=== PATIENT | female | born 1960 | race Caucasian/White ===

== ENCOUNTER 2024-01-18 09:27 | Outpatient (REF) | payer OTHER, SELFPAY ==
[2024-01-18 11:53] LABS: Alanine Aminotransferase 40 U/L (0-31); Albumin Level 4.1 g/dL (3.5-5.0); Alkaline Phosphatase 100 U/L (39-117); Anion Gap 11 (12-20); Aspartate Amino Transferase 31 U/L (5-31); Bilirubin Total 0.3 mg/dL (0.0-1.0); Blood Urea Nitrogen 15 mg/dL (9-16); Calcium 9.6 mg/dL (8.4-10.2); Carbon Dioxide 25 mmol/L (22-29); Chloride 108 mmol/L (96-108); Estimated Glomerular Filt Rate > 60; Glucose Random 108 mg/dL (60-115); Potassium 4.3 mmol/L (3.3-5.1); Sodium 140 mmol/L (135-145); Total Protein 7.2 g/dL (6.5-8.0)
== END 2024-01-18 09:28 | disposition home or self-care (01) ==
LOC: HO.HMGCLDS 09:27
PROVIDERS: PCP Internal Medicine; Visit Provider Internal Medicine
DX: R53.83 Other fatigue (principal); R82.2 Biliuria
CPT/HCPCS: 36415; 80053

== ENCOUNTER 2024-04-18 08:39 | Outpatient (REF) | payer OTHER, SELFPAY ==
--- NOTE | ~2024-04-18 | US_ITS ---
EXAMINATION: US ABDOMEN LIMITED CLINICAL INFORMATION: Bilirubin in urine. Rule out mass. COMPARISON: None available. TECHNIQUE: Real-time imaging of the right upper quadrant abdominal viscera. Limited visualization due to bowel gas. FINDINGS: PANCREAS: Limited visualization of pancreatic tail and head. Imaged portion of pancreatic body is unremarkable. LIVER: Mildly increased hepatic parenchymal heterogeneity and echogenicity could be associated with hepatocellular disease/hepatic steatosis and substantially limits visualization. Correlation with liver function tests and clinical exam recommended to determine further management. GALLBLADDER: Small amount of mobile echogenic material within the gallbladder, best visualized when patient moved into decubitus position per label printer observations, possibly representing echogenic bile and/or tiny gallstones. No gallbladder wall thickening. COMMON BILE DUCT: Normal in caliber measuring 0.40 cm in diameter. RIGHT KIDNEY: No hydronephrosis. No renal calculi. Limited visualization. The kidney measures 10.5 cm in maximum dimension. FREE FLUID: None. US/US abdomen limited IMPRESSION: 1. Mildly increased hepatic parenchymal heterogeneity and echogenicity could be associated with hepatocellular disease/hepatic steatosis and substantially limits visualization. Correlation with liver function tests and clinical exam recommended to determine further management. 2. Small amount of mobile echogenic material within the gallbladder, best visualized when patient moved into decubitus position per label printer observations, possibly representing echogenic bile and/or tiny gallstones. No gallbladder wall thickening.
== END 2024-04-18 08:40 | disposition home or self-care (01) ==
LOC: HO.HMGCX 08:39
PROVIDERS: PCP Internal Medicine; Visit Provider Internal Medicine
DX: R82.2 Biliuria (principal)
CPT/HCPCS: 76705

== ENCOUNTER 2024-06-02 15:18 | Outpatient (REF) | payer OTHER, SELFPAY ==
[2024-06-02 16:16] LABS: Alanine Aminotransferase 16 U/L (0-31); Alkaline Phosphatase 92 U/L (39-117); Anion Gap 13 (12-20); Aspartate Amino Transferase 16 U/L (5-31); Bilirubin Direct 0.1 mg/dL (0.0-0.5); Bilirubin Total 0.3 mg/dL (0.0-1.0); Blood Urea Nitrogen 13 mg/dL (9-16); Calcium 10.1 mg/dL (8.4-10.2); Carbon Dioxide 25 mmol/L (22-29); Chloride 106 mmol/L (96-108); Estimated Glomerular Filt Rate > 60; Phosphorus 3.9 mg/dL (2.7-4.5); Potassium 4.2 mmol/L (3.3-5.1); Sodium 140 mmol/L (135-145)
[2024-06-02 17:02] LABS: Appearance Urine Clear; Color Urine Yellow; Glucose Urine UA Negative (Negative); Leukocyte Esterase Urine Small (1+) (Negative); Nitrite Urine Positive (Negative); PH 5.5 (5.0-9.0); UMIC TRIGGER UA YES; Urine Blood Negative (Negative); Urine Ketones Negative (Negative); Urine Protein 30 (1+) mg/dL (Neg-Trace)
[2024-06-02 17:05] LABS: Bacteria Urine 4+ (None Seen); Hyaline Casts Urine 0-2 /LPF (0-2); RBC Urine 0-2 /HPF (0-2); WBC Urine 21-50 /HPF (0-5)
[2024-06-02 17:30] LABS: Creatinine Urine 52.57 mg/dL; Microalbum/Creatinine Ratio Ur 15.2 ug/mg cr (<30); Total Protein Urine Random < 7 mg/dL (<12)
== END 2024-06-02 15:19 | disposition home or self-care (01) ==
LOC: HO.LAB 15:18
PROVIDERS: PCP Internal Medicine; Visit Provider Internal Medicine Nephrology
DX: N30.81 Other cystitis with hematuria (principal)
CPT/HCPCS: 36415; 80051; 81001; 82043; 82247; 82248; 82310; 82565; 82570; 84075; 84100; 84156; 84450; 84460; 84520; 87086; 87088; 87186

== ENCOUNTER 2025-04-08 11:24 | Outpatient (AMB) | payer OTHER, SELFPAY ==
--- NOTE | 2025-04-08 11:20 | MHC.PC.OV ---
Vital Signs 04/08/25 11:25 Height 5 ft 1.81 in Weight 140 lb BMI 25.8 BP 152/79 H Blood Pressure Location Rt brachial Position Sitting Respiration 16 Pulse 72 Pulse Source Pulse Oximeter Temp 98.2 F Temp Source Temporal Artery Scan Pulse Oximetry (%) 98 Oxygen Delivery Method Room Air Intake Visit Reasons: Establish Care [employer] Required: No Accompanied by: Spouse Allergies No Known Allergies Allergy (Verified 04/08/25 11:42) Medication List - Last Reconciled 04/08/25 by Nikia Adames PA-C amoxicillin 500 mg PO DAILY atorvastatin 40 mg PO DAILY cevimeline 1 cap PO BID PRN cyclobenzaprine 5 mg PO BEDTIME PRN estradiol 1 patch topical 2XW estradiol 0.01%(0.1mg/gram) 0.5 grams vaginal Q OTHER DAY etodolac 400 mg PO DAILY PRN fluoxetine 10 mg PO DAILY fluoxetine mg PO levothyroxine (Synthroid) 100 mcg PO DAILY lorazepam 1 mg PO TID methenamine hippurate 1 g PO BID nitrofurantoin monohyd/m-cryst 100 mg 1 cap PO BID omeprazole 20 mg PO BID Tobacco use date assessed: 04/08/25 Fall risk assessment: No Falls in past year Last assessed Fall Risk: 04/08/25 Dental Screening Dental Screen Date: 04/08/25 Did you have a dental visit in the last 12 months?: Yes Did you have a dental problem in the last 6 months where you did not have access to dental care?: No Was dental information given to patient?: Patient has dentist HPI Establish Care HPI Details The patient is a 65-year-old female presenting with the need to establish care with a new primary care provider and review her medical history. She is currently on atorvastatin for hyperlipidemia, which is a long-standing condition. She also takes omeprazole for gastroesophageal reflux disease, levothyroxine for hypothyroidism, and fluoxetine for depression. The patient reports a history of urinary tract infections for which she has been prescribed nitrofurantoin. She is also on lorazepam for anxiety, which is being considered for dose reduction due to concerns about long-term use. Her blood pressure was noted to be elevated at 152/79 mmHg during the visit, although she reports it is not usually high at home. She is advised to monitor her blood pressure at home and return for follow-up in a month. Social History - Substance Use: No current use of methamphetamine reported. [facility] Medical History (Updated 04/08/25 @ 12:11 by Nikia Adames PA-C) Elevated blood pressure reading Hypothyroidism GERD (gastroesophageal reflux disease) Recurrent UTI Hyperlipidemia Anxiety and depression OCD (obsessive compulsive disorder) Establishing care with new doctor, encounter for Family History Father Diabetes Cancer Multiple myeloma Mother BP (high blood pressure) Ovarian cancer Social History Housing: House Alcohol intake: current Alcohol intake frequency: does not drink Patient Tobacco Use Status: Current everyday Tobacco user Cigarette Packs Per Day: 1 Cigarettes Per Day: 20 service: No Current occupational status: unemployed Cognitive needs: No Hearing needs: No Vision needs: Yes (rx glasses) Questionnaire PHQ-9 Over the last 2 weeks, how often have you been bothered by any of the following problems? 1. Little interest or pleasure in doing things: not at all 2. Feeling down, depressed, or hopeless: not at all 3. Trouble falling or staying asleep, or sleeping too much: not at all 4. Feeling tired or having little energy: not at all 5. Poor appetite or overeating: not at all 6. Feeling bad about yourself - or that you are a failure or have let yourself or your family down: not at all 7. Trouble concentrating on things, such as reading the newspaper or watching television: not at all 8. Moving or speaking so slowly that other people could have noticed. Or the opposite - being so fidgety or restless that you have been moving around a lot more than usual: not at all 9. Thoughts that you would be better off or of hurting yourself in some way: not at all Total score: 0 Depression Screening Interpretation: Negative Depression Screening Done: Yes 68071 - PHQ-9 Billing: Yes Source: Developed by Drs. Nnamdi Ernst, Miri Harris, Robert Sellers and colleagues, with an educational franchesca from [employer]. Thrive Questionnaire Date Thrive assessed: 04/08/25 I am a: Patient What is your living situation today?: I have a steady place to live Within the past 12 months, did the food you bought not last and you didn't have the money to get more?: Never true Within the past 12 months, did you worry whether your food would run out before you got money to buy more?: Never true Do you have trouble paying for medicines?: No Do you have trouble getting transportation to medical appointments?: No Do you have trouble paying your heating and electricity bill?: No Do you have trouble taking care of your child, family member or friend?: No Do you have trouble with day-to-day activities such as bathing, preparing meals, shopping, managing finances, etc.?: No Are you currently unemployed and looking for a job?: No Are you interested in more education?: No Please select the resources that you would like help with: None THRIVE Score: 0 AUDIT C Alcohol Use Questionnaire (AUDIT-C) 1. How often do you have a drink containing alcohol?: Never 3. How often do you have six or more drinks on one occasion?: Never Total Score: 0 Score Reviewed/Action Taken: No NONA-7 AMB Questionnaire NONA-7 Date NONA - 7 assessed: 04/08/25 Feeling nervous, anxious, or on edge: 0 = Not at all Not being able to stop or control worryin = Not at all Worrying too much about different things: 0 = Not at all Trouble relaxin = Not at all Being so restless that it is hard to sit still: 0 = Not at all Becoming easily annoyed or irritable: 0 = Not at all Feeling afraid as if something awful might happen: 0 = Not at all Total NONA-7 score (0-4 normal; 5-9 mild; 10-14 moderate; 15-21 severe): 0 Source: Developed by Drs. Nnamdi Ernst, Miri Harrsi, Robert Sellers and colleagues, with an educational franchesca from [employer]. NONA-7 Assessment Billing NONA-7 Assessment Tool: NNOA-7 Assessment 12575 Review of Systems Const Details: - Cardiovascular: Denies usual hypertension at home. - Psychiatric: Reports anxiety and depression. Physical exam (Primary Care) Vital Signs: Last Vital Signs Temp 98.2 F 04/08/25 11:25 Pulse 72 04/08/25 11:25 Resp 16 07/02/25 11:25 BP 166/80 H 07/02/25 11:25 Pulse Ox 98 04/08/25 11:25 Oxygen Delivery Method Room Air 04/08/25 11:25 Care Plan Goal for BP management: <140/90 patient to keep a blood pressure diary log over the next month and return in 1 month BMI result Body Mass Index 25.8 BMI Assessment/Plan discussion: High BMI High, discussed plan: lifestyle, weight reduction, dietary, physical activity and alcohol moderation Tobacco/Smoking Status: Tobacco use Status Tobacco use date assessed 04/08/25 04/08/25 11:23 Patient Tobacco Use Status Current everyday Tobacco 04/08/25 11:37 PHQ-9: PHQ-9 Score PHQ-9: Total score 0 04/08/25 11:37 Depression Screening Interpretation: Negative Thrive Assessment: Date of Thrive Assessment Date Thrive assessed 04/08/25 04/08/25 11:23 Const Other: Appearance: Alert. Oriented X3. No acute distress. Head: Normal external exam. Normocephalic. Atraumatic. Eyes: Pupils are equal, round, and reactive to light. Extraocular movements intact. Conjunctiva and sclera normal. Eyelids normal. Throat: Pharynx normal. Uvula midline. Moist mucous membranes. Neck: Normal inspection. Neck supple. Full range of motion. Cardiovascular: Normal heart rate and rhythm. Heart sound normal. No murmurs noted. Pulses normal throughout. Blood pressure recorded at 152/79, slightly elevated. Respiratory: No respiratory distress. Painless inspiration. Breath sounds normal. No wheezes/rales/rhonchi noted. Chest nontender. No accessory muscle usage noted or decreased air movement noted. Back: Full range of motion noted. Skin: Skin warm and dry. Normal skin color. Normal skin turgor. No rashes/lesions/lacerations noted. Extremities: No lower extremity edema. Extremities exhibit normal range of motion. Extremities nontender. Neuro: Oriented X 3. No motor deficit. No sensory deficit. Reflexes normal. Results Reviewed Results Reviewed: - Labs: Chemistry panel from May 2024 reported as normal, including kidney function. Coding Level of Care Code New Pt Level 4 (68868) Complex EM visit Add On G2211 Diagnoses Establishing care with new doctor, encounter for Z76.89 Hyperlipidemia E78.5 Recurrent UTI N39.0 GERD (gastroesophageal reflux disease) K21.9 Hypothyroidism E03.9 Anxiety and depression F41.9; F32.A OCD (obsessive compulsive disorder) F42.9 Elevated blood pressure reading R03.0 Additional Codes PHQ-9 - 60047 - PHQ-9 Billing: Yes ([id number]) NONA-7 Assessment Billing - NONA-7 Assessment Tool: NONA-7 Assessment 24669 ([id number]) Assessment & Plan Assessment & Plan (1) Establishing care with new doctor, encounter for: Code(s): Z76.89 - Persons encountering health services in other specified circumstances Category: Medical (2) Hyperlipidemia: Code(s): E78.5 - Hyperlipidemia, unspecified Category: Medical Plan: The patient is currently on atorvastatin for management of hyperlipidemia. Condition is chronic and stable continue to monitor. (3) Recurrent UTI: Code(s): N39.0 - Urinary tract infection, site not specified Category: Medical Plan: The patient has a history of urinary tract infections and is on nitrofurantoin, amoxicillin and methenamine hippurate for management. Condition is chronic and stable will continue to monitor. (4) GERD (gastroesophageal reflux disease): Code(s): K21.9 - Gastro-esophageal reflux disease without esophagitis Category: Medical Plan: The patient is on omeprazole for management of gastroesophageal reflux disease. Condition is chronic and stable continue current regimen. (5) Hypothyroidism: Code(s): E03.9 - Hypothyroidism, unspecified Category: Medical Plan: The patient is on levothyroxine 100 mcg for management of hypothyroidism. Condition is chronic and stable will continue current regimen. (6) Anxiety and depression: Code(s): F41.9 - Anxiety disorder, unspecified; F32.A - Depression, unspecified Category: Medical Plan: The patient is on lorazepam for anxiety, she was being prescribed 1 mg t.i.d. although has not been on it for the past few days. I explained to her that we should decrease this dose to 2 tablets twice a day of the 1 mg tablets. At her next visit we will decrease to 1 mg Ativan tablet daily then tried to decrease to 0.5 mg daily. We will continue to try to wean the patient off if appropriate although will refer to Ira Barton for further evaluation and recommendation. Condition is chronic and stable continue to monitor. (7) OCD (obsessive compulsive disorder): Code(s): F42.9 - Obsessive-compulsive disorder, unspecified Category: Medical Plan: The patient is on lorazepam for anxiety, she was being prescribed 1 mg t.i.d. although has not been on it for the past few days. I explained to her that we should decrease this dose to 2 tablets twice a day of the 1 mg tablets. At her next visit we will decrease to 1 mg Ativan tablet daily then tried to decrease to 0.5 mg daily. We will continue to try to wean the patient off if appropriate although will refer to Ira Barton for further evaluation and recommendation. Condition is chronic and stable continue to monitor. (8) Elevated blood pressure reading: Code(s): R03.0 - Elevated blood-pressure reading, without diagnosis of hypertension Category: Medical Plan: Patient denies history of prior elevated blood pressure. Blood pressure noted to be elevated today. Patient to monitor blood pressure log at home and return in 1 month with blood pressure log we will establish if at that time patient needs to be started on blood pressure medication. Patient understands agrees with this plan. Plan Plan Patient was informed and verbally consented to the use of an ambient scribe for clinic note documentation during this visit. 1. Hyperlipidemia The patient is currently on atorvastatin for management of hyperlipidemia. 2. Urinary Tract Infection The patient has a history of urinary tract infections and is on nitrofurantoin for management. 3. Gastroesophageal Reflux Disease The patient is on omeprazole for management of gastroesophageal reflux disease. 4. Hypothyroidism The patient is on levothyroxine 100 mcg for management of hypothyroidism. 5. Anxiety The patient is on lorazepam for anxiety, she was being prescribed 1 mg t.i.d. although has not been on it for the past few days. I explained to her that we should decrease this dose to 2 tablets twice a day of the 1 mg tablets. At her next visit we will decrease to 1 mg Ativan tablet daily then tried to decrease to 0.5 mg daily. We will continue to try to wean the patient off if appropriate although will refer to Ira Barton for further evaluation and recommendation. Condition is chronic and stable continue to monitor. 6. Depression The patient is on fluoxetine 10 mg for management of depression. 7. Hypertension The patient's blood pressure was elevated at 152/79 mmHg during the visit, and she is advised to monitor it at home. Orders: Referrals Psychiatry Outpatient Consultation Service F32.A - Depression, unspecified, F41.9 - Anxiety disorder, unspecified, F42.9 - Obsessive-compulsive disorder, unspecified Medications: New lorazepam 1 mg PO BID 60 tabs 0RF anxiety 30 days Patient Instructions: - Monitor blood pressure at home daily and record the readings. - Follow up in one month for blood pressure and medication review. - Expect a referral call from Ira Barton for psychiatric evaluation.
[2025-04-08 11:25] VITALS: BP 152/79; PULSE 72; RESP 16; TEMP 36.8; O2SAT 98; BMI 25.8
--- OUTSIDE RECORDS SUMMARY | 2025-04-08 12:11 | XMS_ITS | Clinical Summary ---
Author Organization [facility] Address [address] [place] [address] Phone Care Team Providers Care Chief Physical Therapist Name Role Phone Malena Adams MD Primary Care Provider [phone] Allergies No known active allergies Medications FLUoxetine (PROzac) 10 MG capsule Take by mouth 1 (one) time each day Active FLUoxetine (PROzac) 20 MG capsule TAKE 1 CAPSULE BY MOUTH EVERY DAY WITH 10MG TO EQUAL 30MG DAILY Active omeprazole (PriLOSEC) [address] capsule Take 20 mg by mouth in the morning and 20 mg in the evening. 05/24/2024 Active cyclobenzaprine (FLEXERIL) 5 MG tablet Take 5 mg by mouth at night if needed 05/26/2024 Active LORazepam (ATIVAN) 1 MG tablet Take 1 mg by mouth Active atorvastatin (LIPITOR) 40 MG tablet Take 40 mg by mouth 1 (one) time each day Active Synthroid 100 MCG tablet Take 100 mcg by mouth 1 (one) time each day Active cevimeline (EVOXAC) 30 MG capsule Take 30 mg by mouth Active etodolac (LODINE) 400 MG tablet Take 400 mg by mouth in the morning and 400 mg in the evening. 02/04/2024 Active Active Problems Problem Noted Date Diagnosed Date Urinary tract infection 06/02/2024 Vitamin D deficiency 08/26/2021 Overview (06/02/2024): Last Assessment & Plan: Serum level requested to make sure that she does not require additional supplementation to keep it in optimal range: 40-45 ng/ml. Osteopenia 08/19/2019 Overview (06/02/2024): Last Assessment & Plan: According to most recent BMD from October 2019 at [facility] there is osteopenia not significantly changed comparing to prior study from 2017. Continue fall and fracture prevention strategies. Proper calcium and vitamin D supplementation and daily weightbearing exercises. Hypertension 09/05/2018 Overview (06/02/2024): Last Assessment & Plan: Blood pressure in the left arm both sitting and supine was 152/84 and 148/84 respectively. She will continue to monitor her blood pressures at home. We talked about sodium restriction. We spoke about the effect of diclofenac on her blood pressure. She will follow-up with her primary care physician to have a discussion regarding her elevated blood pressure. Immunizations Immunization Administration Dates Next Due Influenza, Quadrivalent, Preservative Free 06/23 Family History Medical History Relation Comments Cancer Father Hypertension Father Cancer Mother Diabetes Mother Relation Status Comments Father Mother Social History Tobacco Use Types Packs/Day Years Used Date Smoking Tobacco: Never Assessed Alcohol Use Standard Drinks/Week Comments Never 0 (1 standard drink = 0.6 oz pur e alcohol) Comments Unknown Sex and Gender Information Value Date Recorded Sex Assigned at Not on file Legal Sex Female 9:52 AM EDT Gender Identity Not on file Sexual Orientation Not on file Last Filed Vital Signs Vital Sign Reading Time Taken Comments Blood Pressure 124/60 06/02/2024 2:43 PM EDT Pulse 77 06/02/2024 2:43 PM EDT Temperature - - Respiratory Rate - - Oxygen Saturation 97% 06/02/2024 2:43 PM EDT Inhaled Oxygen Concentration - - Weight 59.6 kg (131 lb 6.4 oz) 06/02/2024 2:43 P M EDT Height - - Body Mass Index - - Plan of Treatment Health Maintenance Due Date Last Done Comments Breast Cancer Screening 1960 Pneumococcal Vaccine: 50+ Ye ars (1 of 2 - PCV) 1977 Colorectal Cancer Screening: Annual FOBT 2007 Colorectal Cancer Screening: Colonoscopy 2007 Colorectal Cancer Screening: Sigmoidoscopy 2007 Influenza Vaccine (#1) 2025 06/23/2022 Hepatitis B Vaccine Aged Out No longe r eligible based on patient's age to complete this topic Insurance Aetna Commercial A[employer]na Commercial Care Teams Chief Physical Therapist Relationship Specialty Start Date End Date Malena Adams MD [address] [place] [address] PCP - General Internal Medicine 04/23/24
--- OUTSIDE RECORDS SUMMARY | 2025-04-08 12:11 | XMS_ITS | Patient Health Record ---
Author Organization [facility] Address [address] [place] [id number] Care Team Providers Care Streetcar Conductor Name Role Phone Altman Nnamdi Unavailable [phone] Reason For Referral No Information Plan Of Treatment No Information
--- OUTSIDE RECORDS SUMMARY | 2025-04-08 12:11 | XMS_ITS | Encounter Summary ---
Author Organization [facility] Address [address] [place] [address] Care Team Providers Care Claim Investigator Name Role Phone Physician, Pcp Unknown Primary Care Provider Mary vailable Encounter Details Date Type Department Care Team (Late st Contact Info) Description 10/23/2024 Lab Requisition [facility] - Main Lab [address] [place] [address] London Perez MD [address] [place] [phone] Pyuria Social History Tobacco Use Types Packs/Day Years Used Date Smoking Tobacco: Never Assessed Comments Unknown Sex and Gender Information Value Date Recorded Sex Assigned at Not on file Legal Sex Female 10:17 AM EST Gender Identity Not on file Sexual Orientation Not on file documented as of this encounter Plan of Treatment Not on file documented as of this encounter Procedures Procedure Name Priority Date/Time Associated Diagnosis Comments BACTERIAL IDENTIFICATION AND SUSCEPTIBILITY, AEROBIC Routine 10/22/2024 11:48 AM EST Pyuria documented in this encounter Results * (ABNORMAL) Bacterial identification and susceptibility, aerobic (10/22/2024 11:48 AM EST) Culture, Bacterial ID and Sensitivity Enterococcus faecalis(A) MIRNA 10/24/2024 10:17 AM EST [facility] Comment: SPARSE Edited result: Previously reported as Enterococcus species on 10/23/2024 at 1505 EST. Other Urine specimen from urethra / Unknown 10/22/2024 11:48 AM EST 10/23/2024 2:31 PM EST Narrative Organism Antibiotic Method Susceptibility Enterococcus faecalis Benzylpenicillin MIRNA 4 ug/ml: Susceptible Enterococcus faecalis Ampicillin MIRNA <=2 ug/ml: Susceptible Enterococcus faecalis Ciprofloxacin MIRNA 1 ug/ml: Susceptible Enterococcus faecalis Levofloxacin MIRNA 1 ug/ml: Susceptible Enterococcus faecalis Linezolid MIRNA 2 ug/ml: Susceptible Enterococcus faecalis Vancomycin MIRNA 2 ug/ml: Susceptible Enterococcus faecalis Tetracycline MIRNA >=16 ug/ml: Resistant Enterococcus faecalis Nitrofurantoin MIRNA <=16 ug/ml: Susceptible us London Perez MD LAB MICROBIOLOGY - GENERAL ORDER MIGUEL Final Result [facility] [address] [place] [address], [place] [phone] documented in this encounter Visit Diagnoses Diagnosis Pyuria Other nonspecific finding on examination of urine documented in this encounter Care Teams Claim Investigator Relationship Specialty Start Date End Date Physician, Pcp Unknown PCP - General 09/10/24 documented as of this encounter
== END 2025-04-08 11:58 | disposition home or self-care (01) ==
LOC: HO.HMCSH 11:24
PROVIDERS: PCP Internal Medicine; Visit Provider Physician Assistant Medical
DX: Z76.89 Persons encountering health services in other specified circumstances (principal); E78.5 Hyperlipidemia, unspecified; N39.0 Urinary tract infection, site not specified; K21.9 Gastro-esophageal reflux disease without esophagitis; E03.9 Hypothyroidism, unspecified; F41.9 Anxiety disorder, unspecified; F32.A Depression, unspecified; F42.9 Obsessive-compulsive disorder, unspecified; R03.0 Elevated blood-pressure reading, without diagnosis of hypertension

== ENCOUNTER → 2025-04-08 11:24 | Outpatient (BNVA) | payer OTHER, SELFPAY | PROVIDERS: PCP Internal Medicine; Visit Provider Physician Assistant Medical | DX: K21.9 Gastro-esophageal reflux disease without esophagitis (principal); E78.5 Hyperlipidemia, unspecified; E03.9 Hypothyroidism, unspecified; N39.0 Urinary tract infection, site not specified; F32.A Depression, unspecified; F42.9 Obsessive-compulsive disorder, unspecified; F41.9 Anxiety disorder, unspecified; R03.0 Elevated blood-pressure reading, without diagnosis of hypertension; Z76.89 Persons encountering health services in other specified circumstances | CPT/HCPCS: 96127 ==

== ENCOUNTER 2025-07-01 13:49 | Outpatient (AMB) | payer OTHER, SELFPAY ==
[2025-07-01 13:57] VITALS: BP 158/77; PULSE 74; RESP 14; TEMP 36.8; O2SAT 98; BMI 24.5
--- NOTE | 2025-07-01 13:57 | MHC.PC.OV ---
Vital Signs 07/01/25 13:57 Height 5 ft 1.81 in Weight 133 lb BMI 24.5 BP 158/77 H Blood Pressure Location Lt brachial Position Sitting Respiration 14 Pulse 74 Pulse Source Pulse Oximeter Temp 98.2 F Temp Source Temporal Artery Scan Pulse Oximetry (%) 98 Oxygen Delivery Method Room Air Intake Visit Reasons: 1 month follow up Automobile Technician Required: No Accompanied by: Spouse Allergies No Known Allergies Allergy (Verified 07/01/25 16:10) Medication List - Last Reconciled 07/01/25 by Nikia Adames PA-C atorvastatin 40 mg PO DAILY cevimeline 1 cap PO BID PRN cyclobenzaprine 5 mg PO BEDTIME PRN estradiol 1 patch topical 2XW estradiol 0.01%(0.1mg/gram) 0.5 grams vaginal Q OTHER DAY etodolac 400 mg PO DAILY PRN fluoxetine 10 mg PO DAILY fluoxetine mg PO hydroxyzine HCl 50 mg PO BID levothyroxine (Synthroid) 100 mcg PO DAILY lorazepam 1 mg PO DAILY 30 days methenamine hippurate 1 g PO BID omeprazole 20 mg PO BID Tobacco use date assessed: 04/08/25 Dental Screening Dental Screen Date: 04/08/25 HPI 1 month follow up HPI Details The patient is a 65-year-old female presenting with anxiety and depression. She reports a history of anxiety and depression, for which she has been on medication prescribed by Dr. Adams. Dr. Brewer had prescribed her Ativan 1 mg 4 times a day then she was decreased to 3 times a day. When she arrived that she was at Ativan 1 mg 3 times a day and we decreased her to b.i.d. and then we decreased her further to once a day. Patient reports since the decrease she has experienced significant anxiety and the weaning off of the medication is not helping her. She reports that she has never been referred to a psychiatrist or a therapist. I referred her to Ira Barton in April and it appears that the patient was called twice and did not answer the phone therefore we gave her the number to call and she will call them today to schedule an appointment with Ira Barton to see if the patient is on the appropriate medication for her anxiety. For the meantime I explained to her that I will continue to keep her on Ativan 1 mg once a day. Will also prescribe her Atarax so she can take 50 mg b.i.d. to replace the Ativan that she was on before we started to wean her down. The patient also reports a history of menopause, which was initially thought to be the cause of her symptoms by previous providers. She has been experiencing symptoms related to menopause for several years. Additionally, the patient has a history of hypertension, which is currently not well-controlled, possibly due to her anxiety. She has been advised to monitor her blood pressure regularly to assess the need for medication adjustment. The patient has a past medical history of endometriosis, which was managed with control injections. Social History - Substance Use: Reports smoking 10 cigarettes a day. [facility] Medical History (Updated 07/01/25 @ 16:16 by Nikia Adames PA-C) Endometriosis Menopause Hypertension Elevated blood pressure reading Hypothyroidism GERD (gastroesophageal reflux disease) Recurrent UTI Hyperlipidemia Anxiety and depression OCD (obsessive compulsive disorder) Establishing care with new doctor, encounter for Family History Father Diabetes Cancer Multiple myeloma Mother BP (high blood pressure) Ovarian cancer Social History Housing: House Alcohol intake: current Alcohol intake frequency: does not drink Patient Tobacco Use Status: Current everyday Tobacco user Cigarette Packs Per Day: 1 Cigarettes Per Day: 20 service: No Current occupational status: unemployed Cognitive needs: No Hearing needs: No Vision needs: Yes (rx glasses) Questionnaire PHQ-9 Over the last 2 weeks, how often have you been bothered by any of the following problems? 1. Little interest or pleasure in doing things: not at all 2. Feeling down, depressed, or hopeless: not at all 3. Trouble falling or staying asleep, or sleeping too much: not at all 4. Feeling tired or having little energy: not at all 5. Poor appetite or overeating: not at all 6. Feeling bad about yourself - or that you are a failure or have let yourself or your family down: not at all 7. Trouble concentrating on things, such as reading the newspaper or watching television: not at all 8. Moving or speaking so slowly that other people could have noticed. Or the opposite - being so fidgety or restless that you have been moving around a lot more than usual: not at all 9. Thoughts that you would be better off or of hurting yourself in some way: not at all Total score: 0 Depression Screening Interpretation: Negative Depression Screening Done: Yes 92645 - PHQ-9 Billing: Yes Source: Developed by Drs. Nnamdi Ernst, Miri Harris, Robert Sellers and colleagues, with an educational franchesca from [employer]. Thrive Questionnaire Date Thrive assessed: 04/08/25 I am a: Patient What is your living situation today?: I have a steady place to live Within the past 12 months, did the food you bought not last and you didn't have the money to get more?: Never true Within the past 12 months, did you worry whether your food would run out before you got money to buy more?: Never true Do you have trouble paying for medicines?: No Do you have trouble getting transportation to medical appointments?: No Do you have trouble paying your heating and electricity bill?: No Do you have trouble taking care of your child, family member or friend?: No Do you have trouble with day-to-day activities such as bathing, preparing meals, shopping, managing finances, etc.?: No Are you currently unemployed and looking for a job?: No Are you interested in more education?: No Please select the resources that you would like help with: None THRIVE Score: 0 AUDIT C Alcohol Use Questionnaire (AUDIT-C) 1. How often do you have a drink containing alcohol?: Never 3. How often do you have six or more drinks on one occasion?: Never Total Score: 0 Score Reviewed/Action Taken: No NONA-7 AMB Questionnaire NONA-7 Date NONA - 7 assessed: 04/08/25 Feeling nervous, anxious, or on edge: 0 = Not at all Not being able to stop or control worryin = Not at all Worrying too much about different things: 0 = Not at all Trouble relaxin = Not at all Being so restless that it is hard to sit still: 0 = Not at all Becoming easily annoyed or irritable: 0 = Not at all Feeling afraid as if something awful might happen: 0 = Not at all Total NONA-7 score (0-4 normal; 5-9 mild; 10-14 moderate; 15-21 severe): 0 Source: Developed by Drs. Nnamdi Ernst, Miri Harris, Robert Sellers and colleagues, with an educational franchesca from [employer]. NONA-7 Assessment Billing NONA-7 Assessment Tool: NONA-7 Assessment 26061 Review of Systems Const Details: - Psychiatric: Reports anxiety and depression. - Cardiovascular: Reports elevated blood pressure, likely due to anxiety. All systems reviewed & are unremarkable except as noted in HPI and below Physical exam (Primary Care) Vital Signs: Last Vital Signs Temp 98.2 F 07/01/25 13:57 Pulse 74 07/01/25 13:57 Resp 14 07/01/25 13:57 BP 158/77 H 07/01/25 13:57 Pulse Ox 98 07/01/25 13:57 Oxygen Delivery Method Room Air 07/01/25 13:57 Care Plan Goal for BP management: <140/90 at Goal BMI result Body Mass Index 24.5 Normal BMI Tobacco/Smoking Status: Tobacco use Status Tobacco use date assessed 04/08/25 07/01/25 13:59 Patient Tobacco Use Status Current everyday Tobacco 07/01/25 13:59 PHQ-9: PHQ-9 Score PHQ-9: Total score 0 07/01/25 14:05 Depression Screening Interpretation: Negative Thrive Assessment: Date of Thrive Assessment Date Thrive assessed 04/08/25 07/01/25 13:59 Const Other: Appearance: Alert. Oriented X3. No acute distress. Head: Normal external exam. Normocephalic. Atraumatic. Eyes: Pupils are equal, round, and reactive to light. Extraocular movements intact. Conjunctiva and sclera normal. Eyelids normal. Throat: Pharynx normal. Uvula midline. Moist mucous membranes. Neck: Normal inspection. Neck supple. Full range of motion. Cardiovascular: Normal heart rate and rhythm. Respiratory: No respiratory distress. Painless inspiration. Back: Full range of motion noted. Skin: Skin warm and dry. Normal skin color. Normal skin turgor. No rashes/lesions/lacerations noted. Extremities: Extremities exhibit normal range of motion. Neuro: Oriented X 3. No motor deficit. No sensory deficit. Reflexes normal. Office Procedures Flu Questionnaire Does the patient have a severe egg allergy?: No Does the patient have severe life threatening allergies?: No Does the patient have a fever or illness today?: No Has the patient ever had Guillain-[place] Syndrome?: No Has the patient ever had any past reaction to a flu shot?: No Immunizations Fluarix [id number] (PF) 45 mcg (15 mcg x 3)/0.5 mL IM syringe Performing Provider: Nikia Adames PA-C [facility] Documented (not given) by: SERGE Hernandez on 07/01/25 14:13 Reason Not Given: Patient Refused Coding Level of Care Code Est Pt Level 4 (95803) Complex EM visit Add On G2211 Diagnoses Anxiety and depression F41.9; F32.A Hypertension I10 Menopause Z78.0 Endometriosis N80.9 Additional Codes NOAN-7 Assessment Billing - NONA-7 Assessment Tool: NONA-7 Assessment 03502 ([id number]) PHQ-9 - 75502 - PHQ-9 Billing: Yes ([id number]) Assessment & Plan Assessment & Plan (1) Anxiety and depression: Code(s): F41.9 - Anxiety disorder, unspecified; F32.A - Depression, unspecified Category: Medical Plan: The patient will be started on hydroxyzine 50 mg, which can be taken twice daily to manage anxiety symptoms. A referral to a psychiatrist has been made to evaluate the necessity of current medications and to explore alternative treatments. The patient is currently on medication for depression, and the effectiveness of this treatment will be reassessed after psychiatric evaluation. (2) Hypertension: Code(s): I10 - Essential (primary) hypertension Category: Medical Plan: The patient is advised to monitor her blood pressure daily to determine if medication adjustments are necessary. The relationship between her anxiety and elevated blood pressure will be evaluated during follow-up visits. (3) Menopause: Code(s): Z78.0 - Asymptomatic menopausal state Category: Medical Plan: The patient's menopausal symptoms are being monitored, and no specific treatment changes were discussed during this visit. (4) Endometriosis: Code(s): N80.9 - Endometriosis, unspecified Category: Medical Plan: The patient has a history of endometriosis managed with control injections, and no current issues were reported. Plan Plan Patient was informed and verbally consented to the use of an ambient scribe for clinic note documentation during this visit. 1. Anxiety The patient will be started on hydroxyzine 50 mg, which can be taken twice daily to manage anxiety symptoms. A referral to a psychiatrist has been made to evaluate the necessity of current medications and to explore alternative treatments. 2. Depression The patient is currently on medication for depression, and the effectiveness of this treatment will be reassessed after psychiatric evaluation. 3. Hypertension The patient is advised to monitor her blood pressure daily to determine if medication adjustments are necessary. The relationship between her anxiety and elevated blood pressure will be evaluated during follow-up visits. 4. Menopause The patient's menopausal symptoms are being monitored, and no specific treatment changes were discussed during this visit. 5. Endometriosis The patient has a history of endometriosis managed with control injections, and no current issues were reported. I discussed with the patient the importance of seeing a psychiatrist to evaluate her current medications for anxiety and depression. We talked about starting hydroxyzine as a non-addictive alternative to manage her anxiety symptoms. I also emphasized the need to monitor her blood pressure regularly and to follow up if her symptoms persist or worsen. Orders: Orders Influenza [id number] Immunization Today Z23 - Encounter for immunization Medications: New hydroxyzine HCl 50 mg PO BID 60 tabs 0RF anxiety Patient Instructions: - Take hydroxyzine 50 mg twice daily as prescribed. - Monitor blood pressure daily and record the readings. - Follow up with a psychiatrist as soon as possible for medication evaluation. - Return for a follow-up visit in one month or sooner if symptoms worsen.
--- OUTSIDE RECORDS SUMMARY | 2025-07-01 16:18 | XMS_ITS | Encounter Summary ---
Author Organization [facility] Address [address] [place] [address] [place] [address] Phone Care Team Providers Care Treasurer Name Role Phone Hayden Wells MD Unavailable [email or web address] [email or web address] Charyl oGrdon MD Unavailable Emily George MD Unavailable Juan Manuel Knox MD Unavailable [phone] Raquel Alicea NP Unavailable [phone] Rupinder Vicente MD Unavailable Pepe Adams MD Unavailable [phone] Luis Lopez MD Unavailable [phone] Rafaela Shultz MD Unavailable [phone] [facility] Primary Care Provider + [phone] Encounter Details Date Type Department Care Team (Latest Contact Info) Description 08/05/2017 Transcribe Orders [facility] [place], OB Ultrasound [address] [place], [place] [id number] Rupinder Vicente MD [address] [facility], [address] [place], [place] [id number] [email or web address] Postmenopausal bleeding (Primary Dx) Social History Tobacco Use Types Packs/Day Years Used Date Smoking Tobacco: Never Assessed Comments Unknown Sex and Gender Information Value Date Recorded Sex Assigned at Not on file Legal Sex Female 9:52 PM EDT Gender Identity Not on file Sexual Orientation Not on file documented as of this encounter Plan of Treatment Upcoming Encounters Date Type Department Care Team (Late st Contact Info) Description 08/19/2025 10:00 AM EST Office Visit [facility] Rheumatology [address] [place] [address] Emily George MD [address] [facility], [address] [place] [address] [email or web address] 02/18/2026 3:00 PM EDT Office Visit [facility] Family Medicine [address] [place] [address] [address] [facility], [address] [place] [address] [email or web address] documented as of this encounter Results * US PELVIS TRANSABDOMINAL PLUS TRANSVAGINAL (09/24/2017 10:19 AM EST) Anatomical Region Laterality Modality Pelvis, Uterus/Adnexa OB Ultraso und 09/24/2017 10:2 9 AM EST Impressions 09/24/2017 8:42 PM EST 1. Heterogeneous uterus with several masses consistent with fibroids as described above. 2. The endometrial cavity contains a small amount of fluid. The bearden appear thin and smooth. 3. Normal appearing ovaries. 4. There is no free fluid. . Narrative 09/24/2017 8:42 PM EST INDICATION: Post menopausal bleeding EXAM DATE: 09/24/2017 10:29 AM GYNECOLOGICAL ULTRASONOGRAPHY: Uterus Volume: 66.29 ml Heterogeneous, retroverted uterus with irregular contour. Length: 6.66 cm Height: 3.72 cm Width: 5.11 cm Fibroid 1 Anterior(calcified) Length: 2.04 cm Height: 1.05 cm Width: 1.87 cm Fibroid 2 Anterior Length: 0.615 cm Height: 0.477 cm Width: 0.628 cm Fibroid 3 Posterior Length: 1.73 cm Height: 1.30 cm Width: 1.85 cm Fibroid 4 Anterior Length: 0.932 cm Height: 0.807 cm Width: 0.949 cm Endometrial Thickness: 2.6 mm A scant amount of ff is noted within the endometrial cavity. Right Ovary Volume: 2.05 ml Appears grossly normal. No adnexal masses seen. Length: 2.34 cm Height: 1.13 cm Width: 1.48cm Left Ovary Volume: 2.89 ml Appears grossly normal. No adnexal masses seen. Length: 2.49 cm Height: 1.52 cm Width: 1.46 cm Cul de Sac Fluid: No free fluid noted. COMMENTS: Retroverted uterus. Endometrial lining appears thin. An endometrial polyp was questioned on last ultrasound, however today was not well appreciated. Multiple masses consistent with fibroids noted. The right ovary is unremarkable. The left ovary is unremarkable. Transabdominal and transvaginal scanning was performed. Procedure Note Luis Lopez MD - 09/24/2017 INDICATION: Post menopausal bleeding EXAM DATE: 09/24/2017 10:29 AM GYNECOLOGICAL ULTRASONOGRAPHY: Uterus Volume: 66.29 ml Heterogeneous, retroverted uterus with irregular contour. Length: 6.66 cm Height: 3.72 cm Width: 5.11 cm Fibroid 1 Anterior(calcified) Length: 2.04 cm Height: 1.05 cm Width: 1.87 cm Fibroid 2 Anterior Length: 0.615 cm Height: 0.477 cm Width: 0.628 cm Fibroid 3 Posterior Length: 1.73 cm Height: 1.30 cm Width: 1.85 cm Fibroid 4 Anterior Length: 0.932 cm Height: 0.807 cm Width: 0.949 cm Endometrial Thickness: 2.6 mm A scant amount of ff is noted within theendometrial cavity. Right Ovary Volume: 2.05 ml Appears grossly normal. No adnexal masses seen. Length: 2.34 cm Height: 1.13 cm Width: 1.48cm Left Ovary Volume: 2.89 ml Appears grossly normal. No adnexal masses seen. Length: 2.49 cm Height: 1.52 cm Width: 1.46 cm Cul de Sac Fluid: No free fluid noted. COMMENTS: Retroverted uterus. Endometrial lining appears thin. An endometrial polyp was questioned on last ultrasound, however today was not well appreciated. Multiple masses consistent with fibroids noted. The right ovary is unremarkable. The left ovary is unremarkable. Transabdominal and transvaginal scanning was performed. IMPRESSION: 1. Heterogeneous uterus with several masses consistent with fibroids asdescribed above. 2. The endometrial cavity contains a small amount of fluid. The wallsappear thin and smooth. 3. Normal appearing ovaries. 4. There is no free fluid. . us Rupinder Vicente MD IMG US PELVIS Final Result documented in this encounter Visit Diagnoses Diagnosis Postmenopausal bleeding- Primary Postmenopausal bleeding documented in this encounter Care Teams Treasurer Relationship Specialty Start Date End Date Pepe Adams MD [address] [place] [address] PCP - General Internal Medicine 07/31/17 Hayden Wells MD [email or web address] Historical LMR Provider 07/25/17 Charly Gordon MD [address] [place] [address], [facility] [address] [place] [address] [email or web address] Historical LMR Provider 07/25/17 10/15/21 Emily George MD [address] [place] [address], [address] [place] [address] Historical LMR Provider 07/25/17 Juan Manuel Knox MD [address] [place] [address], [address] [place] [address] Historical LMR Provider 07/25/17 10/15/21 Raquel lAicea NP [address] [place] [address] Historical LMR Provider 07/25/17 2 Rupinder Vicente MD [address] [place] [address] [email or web address] Historical LMR Provider 07/25/17 10/15/21 Pepe Adams MD [address] [place] [address] Historical LMR Provider 07/25/17 Luis Lopez MD [address] [place] [address] Historical LMR Provider 07/25/17 10/15/21 Rafaela Shultz MD [address] [place] [address] [email or web address] Historical LMR Provider 07/25/17 10/15/21 documented as of this encounter Additional Source Comments The information contained in this document represents components of the legal health record. It is not the complete legal health record.[facility]
--- OUTSIDE RECORDS SUMMARY | 2025-07-01 16:18 | XMS_ITS | Encounter Summary ---
Author Organization [facility] Address [address] [facility] [address] [place] [address] Phone Care Team Providers Care Brick Wheeler Name Role Phone Hayden Wells MD Unavailable [email or web address] Emily George MD Unavailable [phone] Mugg, Pepe Abraham MD Unavailable [phone] Mug, Pepe Abraham MD Primary Care Provider + [phone] Encounter Details Date Type Department Care Team (Latest Contact Info) Description 12/21/2021 Transcribe Orders Virtual Department [address] [place] [address] Emily George MD [address] [place] [address] [email or web address] Breast screening (Primary Dx) Social History Tobacco Use Types Packs/Day Years Used Date Smoking Tobacco: Every Day Smokeless Tobacco: Never Comments No Sex and Gender Information Value Date Recorded Sex Assigned at Not on file Legal Sex Female 9:52 PM EDT Gender Identity Not on file Sexual Orientation Not on file documented as of this encounter Plan of Treatment Upcoming Encounters Date Type Department Care Team (Late st Contact Info) Description 08/19/2025 10:00 AM EST Office Visit [facility] Rheumatology [address] [place] [address] Emily George MD [address] [place] [address], [address] [address] [email or web address] 02/18/2026 3:00 PM EDT Office Visit [facility] [address] [place] [address] Guera Banks [address] [facility] [place] [address] [email or web address] documented as of this encounter Results * BI MAMMOGRAM SCREENING WITH TOMOSYNTHESIS WITH CAD (BILATERAL) (04/05/2022 10:15 AM EDT) Anatomical Region Laterality Modality Breast Left, Breast Right, Breast Bilateral Bila teral Mammography 04/05/2022 10:2 1 AM EDT Impressions 04/05/2022 10:24 AM EDT No mammographic evidence of malignancy. Recommend routine annual surveillance. BI-RADS CATEGORY: 2 - Benign finding. DENSITY: The breast tissue is heterogeneously dense, which could obscure a lesion on mammography. Narrative 04/05/2022 10:24 AM EDT 62-year-old female. Comparison made to previous on 11/04/2020 and as far back as 12/05/1999. Interpretation made in conjunction with computer-aided detection and tomosynthesis. The breasts are heterogeneously dense, which may obscure small masses. Chronic right upper outer intramammary lymph node and benign macrocalcification. There are no suspicious masses, areas of architectural distortion, or suspicious clusters of microcalcifications. Procedure Note Carl Murillo MD - 04/05/2022 62-year-old female. Comparison made to previous on 11/04/2020 and as farback as 12/05/1999. Interpretation made in conjunction with computer-aideddetection and tomosynthesis. The breasts are heterogeneously dense, which may obscure small masses.Chronic right upper outer intramammary lymph node and benignmacrocalcification. There are no suspicious masses, areas of architectural distortion, orsuspicious clusters of microcalcifications. IMPRESSION: No mammographic evidence of malignancy. Recommend routine annualsurveillance. BI-RADS CATEGORY: 2 - Benign finding. DENSITY: The breast tissue is heterogeneously dense, which could obscurea lesion on mammography. us Emily George MD IMG MG EXAMS Final Re sult documented in this encounter Visit Diagnoses Diagnosis Breast screening- Primary Breast screening, unspecified Breast screening Breast screening, unspecified documented in this encounter Care Teams Brick Wheeler Relationship Specialty Start Date End Date Pepe Adams MD [address] [place] [address] PCP - General Internal Medicine 07/31/17 Hayden Wells MD [email or web address] Historical LMR Provider 07/25/17 Emily George MD [address] [place] [address], [address] [place] [address] [email or web address] Historical LMR Provider 07/25/17 Pepe Adams MD [address] [place] [address] Historical LMR Provider 07/25/17 documented as of this encounter Additional Source Comments The information contained in this document represents components of the legal health record. It is not the complete legal health record.[facility]
--- OUTSIDE RECORDS SUMMARY | 2025-07-01 16:18 | XMS_ITS | Clinical Summary ---
Author Organization [facility] Address [address] [place] [address] Phone Care Team Providers Care Sponsorship Coordinator Name Role Phone Malena Adams MD Primary Care Provider Allergies No known active allergies Medications FLUoxetine [...] most recent BMD from October 2019 at [facility] there is osteopenia not significantly [...] Insurance Aetna Commercial Aetna Commercial Care Teams Sponsorship Coordinator Relationship Specialty Start Date End Date Malena Adams MD [address] [place] [address] PCP - General Internal Medicine 04/23/24
--- OUTSIDE RECORDS SUMMARY | 2025-07-01 16:18 | XMS_ITS | Encounter Summary ---
Author Organization [facility] Address [address] [place] [address] [place] [address] Phone Care Team Providers Care Preparation Plant Repairer Name Role Phone Hayden Wells MD Unavailable [email or web address] Charly Gordon MD Unavailable Emily George MD Unavailable Juan Manuel Knox MD Unavailable Raquel Alicea NP Unavailable [phone] Rupinder Vicente MD Unavailable Pepe Adams MD Unavailable [phone] Luis Lopez MD Unavailable [phone] Rafaela Shultz MD Unavailable [phone] Pepe Adams MD Primary Care Provider + [phone] Encounter Details Date Type Department Care Team (Late st Contact Info) Description 11/01/2017 Ancillary Orders [facility], X-Ray - [address] [address] Pepe Adams MD [address] [place] [address] Right shoulder pain, unspecified chronicity Social History Tobacco Use Types Packs/Day Years Used Date Smoking Tobacco: Every Day Smokeless Tobacco: Never Comments Unknown Sex and Gender Information Value Date Recorded Sex Assigned at Not on file Legal Sex Female 9:52 PM EDT Gender Identity Not on file Sexual Orientation Not on file documented as of this encounter Plan of Treatment Upcoming Encounters Date Type Department Care Team (Late st Contact Info) Description 08/19/2025 10:00 AM EST Office Visit [facility] Rheumatology [address] [place] [address] Emily George MD [address] [facility], [address] [place] [address] [email or web address] 02/18/2026 3:00 PM EDT Office Visit [facility] Family Medicine [address] [place] [address] Guera Banks [address] [facility] [place] [address] [email or web address] documented as of this encounter Results * XR SHOULDER 2 VIEWS (RIGHT) (11/01/2017 7:54 PM EST) Anatomical Region Laterality Modality Shoulder Right Radiographic Akosua ging 11/01/2017 7:51 PM EST Impressions 11/01/2017 8:37 PM EST There may be a small amount of rotator cuff calcific tendinopathy present. No other source of the pain is seen. Ordering physician: Pepe Adams MD POS - [id number] Edited by: Alisha Benton on 11/01/2017 8:07 PM Narrative 11/01/2017 8:37 PM EST Right shoulder 3 views. No prior. There may be a small amount of calcification at the rotator cuff seen only on the AP view. No prominent glenohumeral or acromioclavicular joint space loss. No malalignment. No bony lesions. No cervical ribs seen. No pneumothorax in adjacent lung. Procedure Note Xander Arce MD - 11/01/2017 Right shoulder 3 views. No prior. There may be a small amount ofcalcification at the rotator cuff seen only on the AP view. No prominentglenohumeral or acromioclavicular joint space loss. No malalignment. Nobony lesions. No cervical ribs seen. No pneumothorax in adjacent lung. IMPRESSION: There may be a small amount of rotator cuff calcific tendinopathy present.No other source of the pain is seen. Ordering physician: Pepe Adams MD POS - [id number] Edited by: Alisha Benton on 11/01/2017 8:07 PM Pepe Adams MD IMG XR UPPER EXTREMITY Fin al Result documented in this encounter Visit Diagnoses Diagnosis Right shoulder pain, unspecified chronicity Right shoulder pain, unspecified chronicity documented in this encounter Care Teams Preparation Plant Repairer Relationship Specialty Start Date End Date Pepe Adams MD [address] [place] [address] PCP - General Internal Medicine 07/31/17 Hayden Wells MD [email or web address] Historical LMR Provider 07/25/17 Charly Gordon MD [address] [place] [address], [address] [place] [address] [email or web address] Historical LMR Provider 07/25/17 10/15/21 Emily George MD [address] [place] [address], [address] [place] [address] Historical LMR Provider 07/25/17 Juan Manuel Knox MD [address] [place] [address], [address] [place] [address] Historical LMR Provider 07/25/17 10/15/21 Raquel Alicea NP [address] [place] [address] Historical LMR Provider 07/25/17 2 Rupinder Vicente MD [address] [place] [address] Historical LMR Provider 07/25/17 10/15/21 Pepe Adams MD [address] [place] [address] Historical LMR Provider 07/25/17 Luis Lopez MD [address] [place] [address] Historical LMR Provider 07/25/17 10/15/21 Rafaela Shultz MD [address] [place] [address] [email or web address] Historical LMR Provider 07/25/17 10/15/21 documented as of this encounter Additional Source Comments The information contained in this document represents components of the legal health record. It is not the complete legal health record.[facility]
--- OUTSIDE RECORDS SUMMARY | 2025-07-01 16:18 | XMS_ITS | Encounter Summary ---
Author Organization [facility] Address [address] [place] [address] [place] [address] Phone Care Team Providers Care Naphtha Washing System Operator Name Role Phone Hayden Wells MD Unavailable [email or web address] Charly Gordon MD Unavailable Emily George MD Unavailable [phone] Juan Manuel Knox MD Unavailable Raquel Alicea NP Unavailable [phone] Rupinder Vicente MD Unavailable Pepe Adams MD Unavailable [phone] Luis Lopez MD Unavailable [phone] Rafaela Shultz MD Unavailable [phone] Pepe Adams MD Primary Care Provider + [phone] Encounter Details Date Type Department Care Team (Late st Contact Info) Description 07/31/2017 Ancillary Orders [facility] [address] [place] [address] Rupinder Vicente MD [address] [facility], [address] [place], [place] [id number] [email or web address] Breast screening Social History Tobacco Use Types Packs/Day Years [...] Description 08/19/2025 10:00 AM EST Office Visit [facility] Rheumatology [address] [place] [address] Emily George MD [address] [facility], [address] [place] [address] [email or web address] 02/18/2026 3:00 PM EDT Office Visit [facility] Family Medicine [address] [place] [address] Guera Banks [address] [facility] [place] [address] [email or web address] documented as of this encounter Results * BI MAMMOGRAM SCREENING WITH TOMOSYNTHESIS WITH CAD (BILATERAL) (09/17/2017 9:10 AM EST) Anatomical Region Laterality Modality Breast Left, Breast Right, Breast Bilateral Bila teral Mammography 09/17/2017 11:0 1 AM EST Impressions 09/17/2017 11:02 AM EST No mammographic evidence of malignancy. BI-RADS CATEGORY: 1 - Negative. DENSITY: There are scattered fibroglandular densities. POS - [id number] Narrative 09/17/2017 11:02 AM EST Standard digital full-field 2-D C view and two-plane tomographic imaging was performed and compared with multiple prior studies, most recently 09/07/2016, with utilization of computer-aided detection. The breasts are composed of scattered fibroglandular densities. The stromal markings are essentially unchanged in overall appearance and distribution. No dominant spiculated mass, suspicious clustered microcalcifications, or focal zone of pathologic skin thickening or retraction are noted to have arisen in the interim. Procedure Note Constance Thibodeaux MD - 09/17/2017 Standard digital full-field 2-D C view and two-plane tomographic imagingwas performed and compared with multiple prior studies, most clbyujuf65/01/2016, with utilization of computer-aided detection. The breasts are composed of scattered fibroglandular densities. Thestromal markings are essentially unchanged in overall appearance anddistribution. No dominant spiculated mass, suspicious clusteredmicrocalcifications, or focal zone of pathologic skin thickening orretraction are noted to have arisen in the interim. IMPRESSION: No mammographic evidence of malignancy. BI-RADS CATEGORY: 1 - Negative. DENSITY: There are scattered fibroglandular densities. POS - [id number] Rupinder Vicente MD IMG MG EXAMS Final Result documented in this encounter Visit Diagnoses Diagnosis Breast screening Breast screening, unspecified Breast screening Breast screening, unspecified documented in this encounter Care Teams Naphtha Washing System Operator Relationship Specialty Start Date End Date DaniellaPepe MD [address] [place] [address] PCP - General Internal Medicine 07/31/17 Hayden Wells MD [email or web address] Historical LMR Provider 07/25/17 Charly Gordon MD [address] [place] [address], [address] [place] [address] Historical LMR Provider 07/25/17 10/15/21 Emily George MD [address] [place] [address], [address] [place] [address] Historical LMR Provider 07/25/17 Juan Manuel Knox MD [address] [place] [address], [address] [place] [address] Historical LMR Provider 07/25/17 10/15/21 Raquel Alicea NP [address] [place] [address] Historical LMR Provider 07/25/17 2 Rupinder Vicente MD [address] [place] [address] Historical LMR Provider 07/25/17 10/15/21 Pepe Adams MD [address] [place] [address] Historical LMR Provider 07/25/17 Luis Lopez MD [address] [place] [address] Historical LMR Provider 07/25/17 10/15/21 Rafaela Shultz MD [address] [place] [address] [email or web address] Historical LMR Provider 07/25/17 10/15/21 documented as of this encounter Additional Source Comments The information contained in this document represents components of the legal health record. It is not the complete legal health record.[facility]
--- OUTSIDE RECORDS SUMMARY | 2025-07-01 16:18 | XMS_ITS | Encounter Summary ---
Author Organization [facility] Address [address] [place] [address] [place] [address] Phone Care Team Providers Care Rn Clinical Name Role Phone Hayden Wells MD Unavailable [email or web address] Emily George MD Unavailable [phone] MugPepe MD Unavailable [phone] [facility] Primary Care Provider + [phone] Encounter Details Date Type Department Care Team (Late st Contact Info) Description 12/21/[address] [address] Social History Tobacco Use Types Packs/Day Years [...] Description 08/19/2025 10:00 AM EST Office Visit [facility] Rheumatology [address] [place] [address] [place] [address] Emily George MD [address] [facility], [address] [place] [address] [email or web address] 02/18/2026 3:00 PM EDT Office Visit [address] [place] [address] Guera Banks [address] [facility], [address] [place] [address] [email or web address] documented as of this encounter Visit Diagnoses Not on filedocumented in this encounter Care Teams Rn Clinical Relationship Specialty Start Date End Date Pepe Adams MD [address] [place] [address] PCP - General Internal Medicine 07/31/17 Hayden Wells MD [email or web address] Historical LMR Provider 07/25/17 Emily George MD [address] [facility], [address] [place] [address] [email or web address] Historical LMR Provider 07/25/17 Pepe Adams MD [address] [place] [address] Historical LMR Provider 07/25/17 documented as of this encounter Additional Source Comments The information contained in this document represents components of the legal health record. It is not the complete legal health record.[facility]
--- OUTSIDE RECORDS SUMMARY | 2025-07-01 16:18 | XMS_ITS | Encounter Summary ---
Author Organization [facility] Address [address] [place] [address] [place] [address] Phone Care Team Providers Care Chemical Processor Name Role Phone Hayden Wells MD Unavailable [email or web address] Charly Gordon MD Unavailable Emily George MD Unavailable [phone] Juan Manuel Knox MD Unavailable Raquel Alicea NP Unavailable Rupinder Vicente MD Unavailable [facility] CityPeep romano MD Unavailable [phone] Luis Lopez MD Unavailable [phone] Rafaela Shultz MD Unavailable [phone] Pepe Adams MD Primary Care Provider + [phone] Encounter Details Date Type Department Care Team (Late st Contact Info) Description 08/26/2019 Ancillary Orders Virtual Department [address] [place] [address] Pepe Adams MD [address] [place], [place] [id number] Breast cancer screening by mammogram Social History Tobacco Use Types Packs/Day Years [...] Description 08/19/2025 10:00 AM EST Office Visit [facility] Rheumatology [address] [place] [address] Emily George MD [address] [facility], [address] [place] [address] [email or web address] 02/18/2026 3:00 PM EDT Office Visit [facility] Family Medicine [address] [place] [address] Guera Banks [address] [facility] [place] [address] [email or web address] documented as of this encounter Results * BI MAMMOGRAM SCREENING WITH TOMOSYNTHESIS WITH CAD (BILATERAL) (11/03/2019 8:45 AM EST) Anatomical Region Laterality Modality Breast Left, Breast Right, Breast Bilateral Bila teral Mammography 11/03/2019 10:3 5 AM EST Impressions 11/03/2019 10:42 AM EST No mammographic change indicative of malignancy. Routine screening is recommended. BI-RADS CATEGORY: 1 - Negative. DENSITY: There are scattered fibroglandular densities. POS -[id number] Narrative 11/03/2019 10:42 AM EST Bilateral full-field digital screening mammography is obtained and read in conjunction with computer-aided detection. Tomosynthesis as well as 2-D C view imaging of both breasts in two planes also obtained. Comparison made to multiple prior, most recent October 02, 2018, and most remote July 28, 2013. No dominant mass, architectural distortion, worrisome asymmetry, or suspicious calcification is identified. No skin or nipple finding of concern is appreciated. Tremor noted again noted on the right. Procedure Note Xander Arce MD - 11/03/2019 Bilateral full-field digital screening mammography is obtained and read inconjunction with computer-aided detection. Tomosynthesis as well as 2-D Cview imaging of both breasts in two planes also obtained. Comparison madeto multiple prior, most recent October 02, 2018, and most remote 2012. No dominant mass, architectural distortion, worrisome asymmetry, orsuspicious calcification is identified. No skin or nipple finding ofconcern is appreciated. Tremor noted again noted on the right. IMPRESSION: No mammographic change indicative of malignancy. Routine screening isrecommended. BI-RADS CATEGORY: 1 - Negative. DENSITY: There are scattered fibroglandular densities. POS -[id number] Pepe Adams MD IMG MG EXAMS Final Resu lt documented in this encounter Visit Diagnoses Diagnosis Breast cancer screening by mammogram Breast cancer screening by mammogram documented in this encounter Care Teams Chemical Processor Relationship Specialty Start Date End Date Pepe Adams MD [address] [place] [address] PCP - General Internal Medicine 07/31/17 Hayden Wells MD [email or web address] Historical LMR Provider 07/25/17 Charly Gordon MD [address] [place] [address], [address] [place] [address] [email or web address] Historical LMR Provider 07/25/17 10/15/21 Emily George MD [address] [place] [address], [address] [place] [address] Historical LMR Provider 07/25/17 Juan Manuel Knox MD [address] [place] [address], [address] [place] [address] Historical LMR Provider 07/25/17 10/15/21 Raquel Alicea NP [address] [place] [address] Historical LMR Provider 07/25/17 2 Rupinder Vicente MD [address] [place] [address] [email or web address] Historical LMR Provider 07/25/17 10/15/21 Pepe Adams MD [address] [place] [address] Historical LMR Provider 07/25/17 Luis Lopez MD [address] [place] [address] Historical LMR Provider 07/25/17 10/15/21 Rafaela Shultz MD [address] [place] [address] [email or web address] Historical LMR Provider 07/25/17 10/15/21 documented as of this encounter Additional Source Comments The information contained in this document represents components of the legal health record. It is not the complete legal health record.[facility]
--- OUTSIDE RECORDS SUMMARY | 2025-07-01 16:18 | XMS_ITS | Patient Health Record ---
Author Organization [facility] Address [address] [place] [address] Care Team Providers Care Collar Feller Name Role Phone Nnamdi Altman Unavailable [phone] Reason For Referral No Information Plan Of Treatment No Information
--- OUTSIDE RECORDS SUMMARY | 2025-07-01 16:18 | XMS_ITS | Clinical Summary ---
Author Organization [facility] Address [address] [place] [id number] Phone Care Team Providers Care Cooler Deliverer Name Role Phone Hayden Wells MD Unavailable [email or web address] Emily George MD Unavailable [phone] Mugg, Malena Abraham MD Unavailable [phone] Mugg, Malena Abraham MD Primary Care Provider [phone] Allergies No known active allergies Medications LORazepam (ATIVAN) 1 MG tablet 1 tablet tid Active omeprazole (PRILOSEC) 40 MG capsule 1 capsule Active levothyroxine (SYNTHROID, LEVOTHROID) 100 MCG tablet 1 tablet on an empty stomach in the morning Active FLUoxetine (PROZAC) 20 MG capsule Take 20 mg by mouth daily. Active FLUoxetine (PROZAC) 10 MG capsule Take 10 mg by mouth daily. Active atorvastatin (LIPITOR) 40 MG tablet Take 40 mg by mouth daily. Active tretinoin (RETIN-A) 0.1 % cream Apply topically daily. 3 Active phenazopyridine (PYRIDIUM) 200 MG tablet Take 1 tablet (200 mg total) by mouth 3 (three) times a day as needed for pain (specific location in comments). 10 tablet 4 Active estradioL (ESTRACE) 0.01 % (0.1 mg/gram) vaginal cream Place 2 g vaginally daily. Apply fingertip with amount to vaginal area every other day 2 g 1 5 Active methenamine (HIPREX) 1 gram tablet TAKE 1 TABLET BY MOUTH TWICE A DAY TAKE WITH VIT C 5 Active cyanocobalamin, vitamin B-12, (VITAMIN B-12 ORAL) Take by mouth. Activ e cholecalciferol (VITAMIN D3) 2,000 unit tablet Take 2,000 Units by mouth daily. 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 90 tablet 5 Active estradioL (VIVELLE-DOT) 0.1 mg/24 hrIndications:Os teopenia of multiple sites,Postmenopa usal Place 1 patch onto the skin 2 (two) times a week. 8 patch 2 5 Active Active Problems Problem Noted Date Diagnosed Date On statin therapy 02/13/2025 Assessment & Plan (02/15/2025 10:14 PM EDT): Monitor for muscle tenderness, swelling and weakness. Postmenopausal 08/04/2024 Gastroesophageal reflux dise ase with esophagitis without hemorrhage 02/04/2024 Assessment & Plan (02/15/2025 10:14 PM EDT): Avoid late, large, spicy meals. Keep headboard elevated at 45 angle for nighttime. Continue Prilosec (omeprazole) 40 mg daily as prescribed. Assessment & Plan (08/04/2024 11:09 AM EDT): Avoid late, large, spicy meals. Keep headboard elevated at 45 angle for nighttime. Assessment & Plan (02/04/2024 2:04 PM EDT): Avoid late, large, spicy meals. Keep headboard elevated at 45 angle for nighttime. Tobacco dependence 02/04/2024 Assessment & Plan (08/04/2024 11:55 AM EDT): I have spent at least 3 minutes on encouraging her to work on complete smoking cessation by reducing number of cigarettes smoked daily by 1 cigarette every week and be ready for dealing with cravings by stocking finger size healthy snacks such as small carrots, cucumbers, celery sticks etc. I have explained to her multiple ill effects of ongoing cigarette smoking including but not limited to increased risk of developing lung cancer, stroke, heart attack, bladder cancer and osteoporosis. I suggested her to choose activity or hobby or vacation designation for which she will start collecting money from not spending it on buying cigarettes. Ideally it would work the best if she can convince her to do it together. Call -QUIT -NOW for free services including motivational text messages. Assessment & Plan (02/06/2024 9:07 AM EDT): I have spent at least 3 minutes on encouraging her to work on complete smoking cessation by reducing number of cigarettes smoked daily by 1 cigarette every week and be ready for dealing with cravings by stocking finger size healthy snacks such as small carrots, cucumbers, celery sticks etc. I suggested her to choose activity or hobby or vacation designation for which she will start collecting money from not spending it on buying cigarettes. Ideally it would work the best if she can convince her to do it together. Call -QUIT -NOW for free services including motivational text messages. Need for immunization against influenza 06/23/20 22 Undifferentiated connective tissue disease 12/21 Assessment & Plan (02/15/2025 10:12 PM EDT): I have explained to Romy that based on the labs from 08/26/2021 she has isolated positive FATOUMATA that does not confirm any diagnosis however puts her at risk for developing one of the systemic rheumatic diseases associated with positive FATOUMATA at some point in the future. More specific immunologic tests all returned negative including Alicea, BOILER ASSISTANT OPERATOR, SSA, SSB and dsDNA antibodies I previously provided her with literature on slow acting disease modifying antirheumatic drug (DMARD) Plaquenil that is documented in the literature to help with fatigue, arthralgias, joint swelling and delaying the onset of defined autoimmune mediated disease. I reviewed with her briefly most frequent side effects related to its use including risk of retinopathy, cardiomyopathy and neuropathy and asked her to let me know the name of her pipe insulator helper to write letter asking about possible contraindications to its administration. I also informed her that it is a slow acting medication and requires 3-4 months for full effect. She read the pamphlet on Plaquenil and reports that she is not ready to take it at this time. At this time I requested new set of monitoring labs in addition close monitoring and getting in touch with me if clinical progression otherwise return in 6 months. Balance rest and activity. Proper hydration. Sleep hygiene. Gentle, regular exercise routine. Keep engaged in hobbies/favorite activities. Adhere to age-appropriate screenings and preventive strategies. Assessment & Plan (08/04/2024 11:58 AM EDT): I have explained to Romy that based on the labs from 08/26/2021 she has isolated positive FATOUMATA that does not confirm any diagnosis however puts her at risk for developing one of the systemic rheumatic diseases associated with positive FATOUMATA at some point in the future. More specific immunologic tests all returned negative including Alicea, BOILER ASSISTANT OPERATOR, SSA, SSB and dsDNA antibodies I previously provided her with literature on slow acting disease modifying antirheumatic drug (DMARD) Plaquenil that is documented in the literature to help with fatigue, arthralgias, joint swelling and delaying the onset of defined autoimmune mediated disease. I reviewed with her briefly most frequent side effects related to its use including risk of retinopathy, cardiomyopathy and neuropathy and asked her to let me know the name of her pipe insulator helper to write letter asking about possible contraindications to its administration. I also informed her that it is a slow acting medication and requires 3-4 months for full effect. She read the pamphlet on Plaquenil and reports that she is not ready to take it at this time. At this time I requested new set of monitoring labs in addition close monitoring and getting in touch with me if clinical progression otherwise return in 6 months. Balance rest and activity. Proper hydration. Sleep hygiene. Gentle, regular exercise routine. Keep engaged in hobbies/favorite activities. Adhere to age-appropriate screenings and preventive strategies. Assessment & Plan (02/04/2024 2:03 PM EDT): I have explained to Romy that based on the labs from 08/26/2021 she has isolated positive FATOUMATA does not confirm any diagnosis however puts her at risk for developing one of the systemic rheumatic diseases associated with positive FATOUMATA at some point in the future. I provided her with literature on slow acting disease modifying antirheumatic drug (DMARD) Plaquenil that is documented in the literature to help with fatigue, arthralgias, joint swelling and delaying the onset of defined autoimmune mediated disease. She is asked to read the pamphlet and write her questions for discussion at next visit. I reviewed with her briefly most frequent side effects related to its use including risk of retinopathy, cardiomyopathy and neuropathy and asked her to let me know the name of her pipe insulator helper to write letter asking about possible contraindications to its administration. I also informed her that it is a slow acting medication and requires 3-4 months for full effect. She read the pamphlet on Plaquenil and reports that she is not ready to take it at this time. At this time I suggest close monitoring and getting in touch with me on clinical progression otherwise return in 6 months. Balance rest and activity. Proper hydration. Sleep hygiene. Gentle, regular exercise routine. Keep engaged in hobbies/favorite activities. Adhere to age-appropriate screenings and preventive strategies. Assessment & Plan (08/02/2023 3:37 PM EDT): I have explained to Romy that based on the labs from 08/26/2021 she has isolated positive FATOUMATA does not confirm any diagnosis however puts her at risk for developing one of the systemic rheumatic diseases associated with positive FATOUMATA at some point in the future. I provided her with literature on slow acting disease modifying antirheumatic drug (DMARD) Plaquenil that is documented in the literature to help with fatigue, arthralgias, joint swelling and delaying the onset of defined autoimmune mediated disease. She is asked to read the pamphlet and write her questions for discussion at next visit. I reviewed with her briefly most frequent side effects related to its use including risk of retinopathy, cardiomyopathy and neuropathy and asked her to let me know the name of her pipe insulator helper to write letter asking about possible contraindications to its administration. I also informed her that it is a slow acting medication and requires 3-4 months for full effect. She read the pamphlet on Plaquenil and reports that she is not ready to take it at this time. At this time I suggest close monitoring and getting in touch with me on clinical progression otherwise return in 6 months. Balance rest and activity. Proper hydration. Sleep hygiene. Gentle, regular exercise routine. Keep engaged in hobbies/favorite activities. Adhere to age-appropriate screenings and preventive strategies. Assessment & Plan (12/21/2022 10:40 AM EDT): I have explained to Romy that based on the labs from 08/26/2021 she has isolated positive FATOUMATA does not confirm any diagnosis however puts her at risk for developing one of the systemic rheumatic diseases associated with positive FATOUMATA at some point in the future. I provided her with literature on slow acting disease modifying antirheumatic drug (DMARD) Plaquenil that is documented in the literature to help with fatigue, arthralgias, joint swelling and delaying the onset of defined autoimmune mediated disease. She is asked to read the pamphlet and write her questions for discussion at next visit. I reviewed with her briefly most frequent side effects related to its use including risk of retinopathy, cardiomyopathy and neuropathy and asked her to let me know the name of her pipe insulator helper to write letter asking about possible contraindications to its administration. I also informed her that it is a slow acting medication and requires 3-4 months for full effect. She read the pamphlet on Plaquenil and reports that she is not ready to take it at this time. At this time I suggest close monitoring and getting in touch with me on clinical progression otherwise return in 6 months. Balance rest and activity. Proper hydration. Sleep hygiene. Gentle, regular exercise routine. Keep engaged in hobbies/favorite activities. Adhere to age-appropriate screenings and preventive strategies. Assessment & Plan (07/18/2022 5:05 PM EDT): I have explained to Romy that based on the labs from 08/26/2021 she has isolated positive FATOUMATA does not confirm any diagnosis however puts her at risk for developing one of the systemic rheumatic diseases associated with positive FATOUMATA at some point in the future. I provided her with literature on slow acting disease modifying antirheumatic drug (DMARD) Plaquenil that is documented in the literature to help with fatigue, arthralgias, joint swelling and delaying the onset of defined autoimmune mediated disease. She is asked to read the pamphlet and write her questions for discussion at next visit. I reviewed with her briefly most frequent side effects related to its use including risk of retinopathy, cardiomyopathy and neuropathy and asked her to let me know the name of her pipe insulator helper to write letter asking about possible contraindications to its administration. I also informed her that it is a slow acting medication and requires 3-4 months for full effect. She read the pamphlet on Plaquenil and reports that she is not ready to take it at this time. At this time I suggest close monitoring and getting in touch with me on clinical progression otherwise return in 6 months. Balance rest and activity. Proper hydration. Sleep hygiene. Gentle, regular exercise routine. Keep engaged in hobbies/favorite activities. Adhere to age-appropriate screenings and preventive strategies. Assessment & Plan (12/25/2021 10:02 AM EDT): I have explained to Romy that based on the labs from 08/26/2021 she has isolated positive FATOUMATA does not confirm any diagnosis however puts her at risk for developing one of the systemic rheumatic diseases associated with positive FATOUMATA at some point in the future. I provided her with literature on slow acting disease modifying antirheumatic drug (DMARD) Plaquenil that is documented in the literature to help with fatigue, arthralgias, joint swelling and delaying the onset of defined autoimmune mediated disease. She is asked to read the pamphlet and write her questions for discussion at next visit. I reviewed with her briefly most frequent side effects related to its use including risk of retinopathy, cardiomyopathy and neuropathy and asked her to let me know the name of her pipe insulator helper to write letter asking about possible contraindications to its administration. I also informed her that it is a slow acting medication and requires 3-4 months for full effect. At this time I suggest close monitoring and getting in touch with me on clinical progression otherwise return in 6 months. Balance rest and activity. Proper hydration. Sleep hygiene. Gentle, regular exercise routine. Keep engaged in hobbies/favorite activities. Adhere to age-appropriate screenings and preventive strategies. Trochanteric bursitis of both hips 12/21/2021 Assessment & Plan (12/25/2021 10:04 AM EDT): Use warm pack versus warm shower prior to gentle, regular exercise routine- examples of appropriate exercises with pictures and detailed instructions printed for home use today. She may benefit from topical cream versus patch applied 2-3 times daily and if needed at bedtime x 2-3 weeks. If symptoms not responsive or worsening may need to get formal PT and/or local steroid injection. Chronic fatigue 08/26/2021 Assessment & Plan (09/15/2021 9:01 PM EST): Balance rest and activity. Proper hydration. Sleep hygiene. Gentle, regular exercise routine. Keep engaged in hobbies/favorite activities. Adhere to age-appropriate screenings and preventive strategies. NSAID long-term use 08/26/2021 Assessment & Plan (02/13/2025 3:29 PM EDT): Take the lowest dose, with least frequency, for shortest time. Remember to take it always with food. Favor topical over oral preparations. Assessment & Plan (08/04/2024 11:09 AM EDT): Take the lowest dose, with least frequency, for shortest time. Remember to take it always with food. Favor topical over oral preparations. Assessment & Plan (02/04/2024 2:04 PM EDT): Take the lowest dose, with least frequency, for shortest time. Remember to take it always with food. Favor topical over oral preparations. Assessment & Plan (08/02/2023 3:38 PM EDT): Take the lowest dose, with least frequency, for shortest time. Remember to take it always with food. Favor topical over oral preparations. Assessment & Plan (01/03/2023 5:14 PM EDT): Take the lowest dose, with least frequency, for shortest time. Remember to take it always with food. Favor topical over oral preparations. Assessment & Plan (07/18/2022 5:06 PM EDT): Take the lowest dose, with least frequency, for shortest time. Remember to take it always with food. Favor topical over oral preparations. Assessment & Plan (12/21/2021 10:54 AM EDT): Take the lowest dose, with least frequency, for shortest time. Remember to take it always with food. Favor topical over oral preparations. Assessment & Plan (09/15/2021 9:03 PM EST): Take the lowest dose, with least frequency, for shortest time. Remember to take it always with food. Favor topical over oral preparations. Hair loss 08/26/2021 Assessment & Plan (12/25/2021 10:04 AM EDT): Make sure to provide enough vitamins group B either through the diet or via supplements. Use gentle products for hair care. May need to consider OTC products for hair regrowth such as Viviscal versus Rogaine for Women. Assessment & Plan (09/15/2021 9:00 PM EST): Make sure to provide enough vitamins group B either through the diet or via supplements. Use gentle products for hair care. May need to consider OTC products for hair regrowth such as Viviscal. FATOUMATA positive 08/26/2021 Assessment & Plan (09/15/2021 8:53 PM EST): Due to highly elevated FATOUMATA at 1: 1280 in a homogenous pattern from 08/07/2018 I took the liberty of getting a new set today to check for interval changes. Vitamin D insufficiency 08/26/2021 Assessment & Plan (09/15/2021 8:53 PM EST): Serum level requested to make sure that she does not require additional supplementation to keep it in optimal range: 40-45 ng/ml. Hot flash, menopausal 11/25/2019 Assessment & Plan (11/25/2019 12:04 PM EST): Quite pervasive and disturbing her sleep and making it uncomfortable during the day. She will continue to hydrate well and after full discussion of risks and benefits we will give her a trial of 0.05 mg estradiol twice weekly. Alopecia 08/19/2019 Assessment & Plan (08/19/2019 1:45 PM EST): Reviewed differential diagnosis with her. Lab work will be sent off. We will call her with the results. No signs of scarring or alopecia. Osteopenia 08/19/2019 Assessment & Plan (02/15/2025 10:13 PM EDT): According to most recent BMD from 06/18/2024 at [facility] there is osteopenia particularly within R femoral neck not significantly changed comparing to prior study from 2017 and 2020. Continue fall and fracture prevention strategies. Proper calcium and vitamin D supplementation and daily weightbearing exercises. Assessment & Plan (08/04/2024 11:09 AM EDT): According to most recent BMD from October 2019 at [facility] there is osteopenia not significantly changed comparing to prior study from 2017. Continue fall and fracture prevention strategies. Proper calcium and vitamin D supplementation and daily weightbearing exercises. Assessment & Plan (02/04/2024 2:04 PM EDT): According to most recent BMD from October 2019 at [facility] there is osteopenia not significantly changed comparing to prior study from 2017. Continue fall and fracture prevention strategies. Proper calcium and vitamin D supplementation and daily weightbearing exercises. Assessment & Plan (12/21/2021 10:55 AM EDT): According to most recent BMD from October 2019 at [facility] there is osteopenia not significantly changed comparing to prior study from 2017. Continue fall and fracture prevention strategies. Proper calcium and vitamin D supplementation and daily weightbearing exercises. Assessment & Plan (09/15/2021 8:59 PM EST): According to most recent BMD from October 2019 at [facility] there is osteopenia not significantly changed comparing to prior study from 2017. Continue fall and fracture prevention strategies. Proper calcium and vitamin D supplementation and daily weightbearing exercises. Assessment & Plan (09/20/2020 3:10 PM EST): Reviewed bone densitometry from October 2019 and we will do another bone densitometry in November 2021. She does have progressively worsening osteopenia in both dual femur and lumbar spine. Recent 25-hydroxy vitamin D level was on the low therapeutic range. She will continue weightbearing activity as well as fall and fracture prevention strategies which we discussed today. All questions were answered. Results for orders placed or performed during the hospital encounter of 11/03/19 (from the past [id number] hour(s)) DXA Monitoring Addendum: 12/22/2019 This is a 59-year-old >>> POST-MENOPAUSAL <<< white female with a history of osteopenia and no perceived height loss. Comparison made to prior studies, most recent November 27, 2016 and as far back as July 15, 2008. Evaluation of the lumbar spine and hips was performed and appears to be technically adequate. Total bone mineral density in the L1-L4 vertebral bodies was calculated at 0.876 gm/cm2 with a T- score of -1.6. This falls within the WHO classification of osteopenia. Patient's Z-score is 0.0. Since prior study there is an increase in density of 3.2% which is statistically significant at the 95% confidence interval. Since baseline there is a decrease of 7.7% which is also significant. Total bone mineral density in the right proximal femur was calculated at 0.908 gm/cm2 with a T-score of -0.3 falling within the WHO classification of normal. Right femoral neck bone mineral density was calculated at 0.615 gm/cm2 with a T-score of -2.1 falling within the WHO classification of osteopenia. Total Z-score is 0.8. Z- score for the neck region is -0.7. Since prior study there is no significant change in total bone mineral density. Total bone mineral density in the left proximal femur was calculated at 0.883 gm/cm2 with a T-score of -0.5 falling within the WHO classification of normal. Bone mineral density in the left femoral neck was calculated at 0.602 gm/cm2 with a T-score of -2.2 falling within the WHO classification of osteopenia. Total Z-score is 0.6. >>> NECK <<< Z-score is -0.9. Since prior study there is no significant change in total density. Since baseline a decrease of 6.8% is statistically significant. IMPRESSION: Osteopenia at both femoral necks and in the lumbar spine. Decrease in density in the lumbar spine at a significant level since prior study of 2016 but no significant change in proximal femoral density in either proximal femur. POS -[id number] Edited by: Alisha Benton on 11/20/2019 7:20 PM Narrative This is a 59-year-old postop also white female with a history of osteopenia and no perceived height loss. Comparison made to prior studies, most recent November 27, 2016 and is far back as July 15, 2008. Evaluation of the lumbar spine and hips was performed and appears to be technically adequate. Total bone mineral density in the L1-L4 vertebral bodies was calculated at 0.876 gm/cm2 with a T score of -1.6. This falls within the WHO classification of osteopenia. Patient's Z score is 0. Since prior study there is increase in density of 3.2% which is statistically significant at the 95% confidence interval. Since baseline there is a decrease of 7.7% which is also significant. Total bone mineral density in the right proximal femur was calculated at 0.908 gm/cm2 with a T-score of -0.3 falling within the WHO classification of normal. Right femoral neck bone mineral density was calculated at 0.615 gm/cm2 with a T-score of -2.1 falling within the WHO classification of osteopenia. Total Z score is 0.8. Z score for the neck region is -0.7. Since prior study there is no significant change in total bone mineral density. Total bone mineral density in the left proximal femur was calculated at 0.883 gm/cm2 with a T-score of -0.5 falling within the WHO classification of normal. Bone mineral density in the left femoral neck was calculated at 0.602 gm/cm2 with a T-score of -2.2 falling within the WHO classification of osteopenia. Total Z score is 0.6. Negative Z score is -0.9. Since prior study there is no significant change in total density. Since baseline a decrease of 6.8% is statistically significant. Impression Osteopenia at both femoral necks and the lumbar spine. Decrease in density in the lumbar spine at 8 significant level since prior study of 2016 but no significant change in proximal femoral density in either proximal femur. POS -[id number] Hospital Outpatient Visit on 08/30/2020 Component Date Value Ref Range Status 25 OH VIT D (TOTAL) 08/30/2020 38 30 - 60 ng/mL Final SODIUM 08/30/2020 139 133 - 146 mmol/L Final POTASSIUM 08/30/2020 4.2 3.3 - 5.1 mmol/L Final CHLORIDE 08/30/2020 104 96 - 108 mmol/L Final CO2 08/30/2020 25 21 - 35 mmol/L Final BUN 08/30/2020 15 6 - 19 mg/dL Final CREATININE 08/30/2020 0.60 0.5 - 1.5 mg/dL Final GLUCOSE 08/30/2020 113* 70 - 99 mg/dL Final ALBUMIN 08/30/2020 4.4 3.9 - 4.8 g/dL Final TOTAL PROTEIN 08/30/2020 6.7 6.5 - 8.0 g/dL Final CALCIUM 08/30/2020 9.8 8.4 - 10.3 mg/dL Final ALKALINE PHOSPHATASE 08/30/2020 102 39 - 117 U/L Final TOTAL BILIRUBIN 08/30/2020 0.2 0.0 - 1.2 mg/dL Final AST 08/30/2020 20 0 - 37 U/L Final ALT 08/30/2020 18 0 - 40 U/L Final GLOBULIN 08/30/2020 2.3 1 - 4.8 g/dL Final EGFR 08/30/2020 98 >59 mL/min/1.73m2 Final Estimated glomerular filtration rate calculated using the CKD-EPI equation. ANION GAP 08/30/2020 14 10 - 20 mmol/L Final C REACTIVE PROTEIN 08/30/2020 1.6 0.0 - 4.0 mg/L Final WBC 08/30/2020 8.46 4.00 - 11.00 K/uL Final Note Reference Range updates to all CBC and Differential results. RBC 08/30/2020 4.43 3.72 - 5.30 M/uL Final HGB 08/30/2020 13.3 11.4 - 15.9 g/dL Final Note updated Reference Ranges for all CBC and Differential results. HCT 08/30/2020 40.4 34.2 - 46.8 % Final PLT 08/30/2020 296 140 - 430 K/uL Final MCV 08/30/2020 91.2 78.0 - 97.0 fL Final MCH 08/30/2020 30.0 25.0 - 33.0 pg Final MCHC 08/30/2020 32.9 32.0 - 36.0 g/dL Final RDW 08/30/2020 13.1 11.0 - 16.0 % Final MPV 08/30/2020 10.5 8.4 - 12.8 fl Final NRBC 08/30/2020 0.00 0 /100 WBCs Final ABSOLUTE NRBC 08/30/2020 0.00 0 K/uL Final DIFF METHOD 08/30/2020 Auto Final NEUTS 08/30/2020 61.5 43.0 - 75.0 % Final LYMPHS 08/30/2020 28.6 18.2 - 47.4 % Final MONOS 08/30/2020 7.3 4.00 - 11.00 % Final EOS 08/30/2020 1.8 0.0 - 8.0 % Final BASOS 08/30/2020 0.6 0.0 - 2.0 % Final Granulocytes, immature (%) 08/30/2020 0.2 0.0 - 0.9 % Final ABSOLUTE NEUTS 08/30/2020 5.20 1.80 - 7.70 K/uL Final ABSOLUTE LYMPHS 08/30/2020 2.42 1.00 - 3.10 K/uL Final ABSOLUTE MONOS 08/30/2020 0.62 0.20 - 0.80 K/uL Final ABSOLUTE EOS 08/30/2020 0.15 0.00 - 0.80 K/uL Final ABSOLUTE BASOS 08/30/2020 0.05 0.00 - 0.09 K/uL Final Granulocytes, immature 08/30/2020 0.02 0.00 - 0.05 K/uL Final Assessment & Plan (11/25/2019 12:05 PM EST): Stable osteopenia in the spine and dual femurs were normal. Stabilization should be helped by the estrogen patch as well as continued weightbearing activity and calcium and vitamin D. Another bone densitometry in 2020. All of her questions were answered. Results for orders placed or performed during the hospital encounter of 11/03/19 (from the past 91220 hour(s)) DXA Monitoring Narrative This is a 59-year-old postop also white female with a history of osteopenia and no perceived height loss. Comparison made to prior studies, most recent November 27, 2016 and is far back as July 15, 2008. Evaluation of the lumbar spine and hips was performed and appears to be technically adequate. Total bone mineral density in the L1-L4 vertebral bodies was calculated at 0.876 gm/cm2 with a T score of -1.6. This falls within the WHO classification of osteopenia. Patient's Z score is 0. Since prior study there is increase in density of 3.2% which is statistically significant at the 95% confidence interval. Since baseline there is a decrease of 7.7% which is also significant. Total bone mineral density in the right proximal femur was calculated at 0.908 gm/cm2 with a T-score of -0.3 falling within the WHO classification of normal. Right femoral neck bone mineral density was calculated at 0.615 gm/cm2 with a T-score of -2.1 falling within the WHO classification of osteopenia. Total Z score is 0.8. Z score for the neck region is -0.7. Since prior study there is no significant change in total bone mineral density. Total bone mineral density in the left proximal femur was calculated at 0.883 gm/cm2 with a T-score of -0.5 falling within the WHO classification of normal. Bone mineral density in the left femoral neck was calculated at 0.602 gm/cm2 with a T-score of -2.2 falling within the WHO classification of osteopenia. Total Z score is 0.6. Negative Z score is -0.9. Since prior study there is no significant change in total density. Since baseline a decrease of 6.8% is statistically significant. Impression Osteopenia at both femoral necks and the lumbar spine. Decrease in density in the lumbar spine at 8 significant level since prior study of 2017 but no significant change in proximal femoral density in either proximal femur. POS -[id number] Assessment & Plan (08/19/2019 1:47 PM EST): Reviewed bone densitometry from 2017. A new bone densitometry is ordered. She will continue on 1000 units of vitamin D3 per day. We will check a 25 hydroxy vitamin D level. In 2017 mean lumbar density T score was -1.8 with a right hip T score of -0.3 and a left hip T score of -0.4. Nausea 11/20/2018 Assessment & Plan (11/20/2018 12:11 PM EST): Unclear etiology. Obtain abdominal ultrasound for review of the biliary tree and pancreas. Continue current medication. 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 Use moisturizing mouthwash, toothpaste and sugar-free lozenges. Remain on Evoxac as prescribed. Assessment & Plan (08/04/2024 11:09 AM EDT): Continue proper hydration, diligent mouth hygiene and regular dental checkups and cleanings. Use moisturizing mouthwash, toothpaste and sugar-free lozenges. Remain on Evoxac as prescribed. Assessment & Plan (02/04/2024 2:04 PM EDT): Continue proper hydration, diligent mouth hygiene and regular dental checkups and cleanings. Use moisturizing mouthwash, toothpaste and sugar-free lozenges. Remain on Evoxac as prescribed. Assessment & Plan (08/02/2023 3:39 PM EDT): Continue proper hydration, diligent mouth hygiene and regular dental checkups and cleanings. Use moisturizing mouthwash, toothpaste and sugar-free lozenges. Remain on Evoxac as prescribed. Assessment & Plan (12/21/2022 10:42 AM EDT): Continue proper hydration, diligent mouth hygiene and regular dental checkups and cleanings. Use moisturizing mouthwash, toothpaste and sugar-free lozenges. Remain on Evoxac as prescribed. Assessment & Plan (07/18/2022 5:05 PM EDT): Continue proper hydration, diligent mouth hygiene and regular dental checkups and cleanings. Use moisturizing mouthwash, toothpaste and sugar-free lozenges. Remain on Evoxac as prescribed. Assessment & Plan (12/25/2021 10:02 AM EDT): Continue proper hydration, diligent mouth hygiene and regular dental checkups and cleanings. Use moisturizing mouthwash, toothpaste and sugar-free lozenges. Remain on Evoxac as prescribed. Assessment & Plan (09/15/2021 8:57 PM EST): Continue proper hydration, diligent mouth hygiene and regular dental checkups and cleanings. Use moisturizing mouthwash, toothpaste and sugar-free lozenges. Remain on Evoxac as prescribed. 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 Also regular visits to the dentist. Assessment & Plan (08/19/2019 1:46 PM EST): No signs or symptoms of thrush or mucositis. Regular visits to the dentist twice a year, Biotene mouthwash and toothpaste, good oral hydration and continuance of Evoxac but taking the last dose in the afternoon rather than the evening to prevent nocturnal drooling. No visits with results within 3 Month(s) from this visit. Latest known visit with results is: Hospital Outpatient Visit on 08/07/2018 Component Date Value Ref Range Status CREATINE KINASE 08/07/2018 54 21 - 215 U/L Final SS-A/RO IGG 08/07/2018 <0.2 <1.0 (Negative) U Final SS-B/LA IGG 08/07/2018 <0.2 <1.0 (Negative) U Final DNA DOUBLE-STRANDED AB, IGG, S 08/07/2018 <12.3 <30.0 (Negative) IU/ML Final FATOUMATA SCREEN ON HEP 2 08/07/2018 Positive* Negative Final An FATOUMATA Titer has been reflexed. The results will follow. C REACTIVE PROTEIN 08/07/2018 2.2 0.0 - 4.0 mg/L Final SODIUM 08/07/2018 142 133 - 146 mmol/L Final POTASSIUM 08/07/2018 4.4 3.3 - 5.1 mmol/L Final CHLORIDE 08/07/2018 101 96 - 108 mmol/L Final CO2 08/07/2018 27 21 - 35 mmol/L Final BUN 08/07/2018 19 6 - 19 mg/dL Final CREATININE 08/07/2018 0.50 0.5 - 1.5 mg/dL Final GLUCOSE 08/07/2018 108* 70 - 99 mg/dL Final ALBUMIN 08/07/2018 4.9* 3.9 - 4.8 g/dL Final TOTAL PROTEIN 08/07/2018 7.7 6.5 - 8.0 g/dL Final CALCIUM 08/07/2018 9.9 8.4 - 10.3 mg/dL Final ALKALINE PHOSPHATASE 08/07/2018 111 39 - 117 U/L Final TOTAL BILIRUBIN 08/07/2018 0.2 0.0 - 1.2 mg/dL Final AST 08/07/2018 18 0 - 37 U/L Final ALT 08/07/2018 15 0 - 40 U/L Final GLOBULIN 08/07/2018 2.8 1 - 4.8 g/dL Final EGFR 08/07/2018 105 >59 mL/min/1.73m2 Final If patient is black, multiply result by 1.159. Estimated glomerular filtration rate calculated using the CKD-EPI equation. ANION GAP 08/07/2018 18 10 - 20 mmol/L Final 25 OH VIT D (TOTAL) 08/07/2018 38 30 - 60 ng/mL Final TSH 08/07/2018 1.56 0.27 - 4.20 uIU/mL Final HCV 08/07/2018 Negative Negative Final Comment: This is a screening test and should be confirmed with molecular testing FATOUMATA TITER 08/07/2018 1:1280 Homogeneous Final Assessment & Plan (03/20/2019 11:57 AM EDT): Good response to Biotene toothpaste mouthwash as well as Evoxac and attempts to keep well-hydrated. She understands the need for regular visits to the dentist. Her SSA and SSB antibodies were negative. There were no signs or symptoms of a wider inflammatory arthritis or collagen vascular disorder. No visits with results within 3 Month(s) from this visit. Latest known visit with results is: Hospital Outpatient Visit on 08/07/2018 Component Date Value Ref Range Status CREATINE KINASE 08/07/2018 54 21 - 215 U/L Final SS-A/RO IGG 08/07/2018 <0.2 <1.0 (Negative) U Final SS-B/LA IGG 08/07/2018 <0.2 <1.0 (Negative) U Final DNA DOUBLE-STRANDED AB, IGG, S 08/07/2018 <12.3 <30.0 (Negative) IU/ML Final FATOUMTAA SCREEN ON HEP 2 08/07/2018 Positive* Negative Final An FATOUMATA Titer has been reflexed. The results will follow. C REACTIVE PROTEIN 08/07/2018 2.2 0.0 - 4.0 mg/L Final SODIUM 08/07/2018 142 133 - 146 mmol/L Final POTASSIUM 08/07/2018 4.4 3.3 - 5.1 mmol/L Final CHLORIDE 08/07/2018 101 96 - 108 mmol/L Final CO2 08/07/2018 27 21 - 35 mmol/L Final BUN 08/07/2018 19 6 - 19 mg/dL Final CREATININE 08/07/2018 0.50 0.5 - 1.5 mg/dL Final GLUCOSE 08/07/2018 108* 70 - 99 mg/dL Final ALBUMIN 08/07/2018 4.9* 3.9 - 4.8 g/dL Final TOTAL PROTEIN 08/07/2018 7.7 6.5 - 8.0 g/dL Final CALCIUM 08/07/2018 9.9 8.4 - 10.3 mg/dL Final ALKALINE PHOSPHATASE 08/07/2018 111 39 - 117 U/L Final TOTAL BILIRUBIN 08/07/2018 0.2 0.0 - 1.2 mg/dL Final AST 08/07/2018 18 0 - 37 U/L Final ALT 08/07/2018 15 0 - 40 U/L Final GLOBULIN 08/07/2018 2.8 1 - 4.8 g/dL Final EGFR 08/07/2018 105 >59 mL/min/1.73m2 Final If patient is black, multiply result by 1.159. Estimated glomerular filtration rate calculated using the CKD-EPI equation. ANION GAP 08/07/2018 18 10 - 20 mmol/L Final 25 OH VIT D (TOTAL) 08/07/2018 38 30 - 60 ng/mL Final TSH 08/07/2018 1.56 0.27 - 4.20 uIU/mL Final HCV 08/07/2018 Negative Negative Final Comment: This is a screening test and should be confirmed with molecular testing FATOUMATA TITER 08/07/2018 1:1280 Homogeneous Final Assessment & Plan (11/20/2018 12:11 PM EST): I did go over with her previous laboratory showing an antinuclear antibody high titer +1-1280 with a negative SSA and a negative SSB antibody and normal complement component C3 and C4 and a negative rheumatoid factor. Assessment & Plan (09/05/2018 5:04 PM EST): With a high titer positive antinuclear antibody,1:1280 in homogeneous pattern, despite negative SSA and SSB and double-stranded DNA antibodies, her xerostomia may be secondary to Sjogren's. A minor salivary gland biopsy is not necessary at this point but I will treat her empirically with Evoxac at 30 mg twice daily we talked about Biotene mouthwash and toothpaste as well as good oral hydration and regular visits to the dentist to prevent gingivitis or dental caries. She will follow-up with me by phone call in 1 week to let me know how she is doing with this medication. 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 Avoid direct air blow from fans, air conditioners, wind and drafts. Use OTC eyedrops as needed. See pipe insulator helper at least every 12 months or earlier if needed. Assessment & Plan (11/20/2018 12:10 PM EST): Regular dental assessments to rule out dental caries and gingivitis in this patient with xerostomia. She may remain on 30 mg of Evoxac 2 or 3 times daily as needed. She may supplement this with water, Biotene toothpaste and mouthwash. Assessment & Plan (09/05/2018 5:05 PM EST): No evidence of glaucoma or cataracts. No conjunctivitis. We talked about using natural tears and having regular visits to the pipe insulator helper and if absolutely necessary a trial of Restasis. Lumbar facet arthropathy 09/05/2018 Assessment & Plan (02/13/2025 3:29 PM EDT): She finds nice relief from periodic sacroiliac joint injections by Dr. Knox in addition to home exercise program concentrating on core muscle strengthening. She is wearing well fitting, supportive shoes and making sure that her weight is in ideal range for her height. Flexeril provides additional benefit on a as needed basis at the time of flare Assessment & Plan (08/04/2024 11:08 AM EDT): She finds nice relief from periodic sacroiliac joint injections by Dr. Knox in addition to home exercise program concentrating on core muscle strengthening. She is wearing well fitting, supportive shoes and making sure that her weight is in ideal range for her height. Flexeril provides additional benefit on a as needed basis at the time of flare Assessment & Plan (02/04/2024 2:03 PM EDT): She finds nice relief from periodic sacroiliac joint injections by Dr. Durand in addition to home exercise program concentrating on core muscle strengthening. She is wearing well fitting, supportive shoes and making sure that her weight is in ideal range for her height. Flexeril provides additional benefit on a as needed basis at the time of flare Assessment & Plan (07/18/2022 5:04 PM EDT): She finds nice relief from periodic sacroiliac joint injections by Dr. Durand in addition to home exercise program concentrating on core muscle strengthening. She is wearing well fitting, supportive shoes and making sure that her weight is in ideal range for her height. Flexeril provides additional benefit on a as needed basis at the time of flare Assessment & Plan (03/20/2019 11:56 AM EDT): Between lumbar facet arthropathy and sacroiliac dysfunction the patient continues to have pain best served by referral to Dr. Durand who may consider repeat sacroiliac joint injections. In the meantime continue home exercise program concentrating on core strengthening and wearing well fitting supportive shoes with good shock absorption and maintaining her body weight. Assessment & Plan (09/05/2018 5:22 PM EST): I think we are dealing with lower lumbar facet arthropathy without evidence of neurogenic claudication or radiculopathy. Core strengthening, well fitting supportive shoes with good shock absorption a regular walking program and probable physical therapy may be helpful here. With some dryness in her eyes and mouth and a history of a positive antinuclear antibody which may or may not be related to her autoimmune thyroid disease I plan to work this up with a full panel of autoantibodies to rule out lupus or Sjogren's syndrome. I spoke to her about the possibilities causing the dryness as well as her back pain. It is possible that she has sacroiliitis but she has a negative Veronica's maneuver and no other real evidence suggestive of a seronegative spondyloarthropathy. We will see what the lab work shows. All questions were answered. Greater than 50% of this 28-minute visit was spent in [id number] conversation with the patient going over the differential diagnosis and coordinating my care with that of physical therapy and her primary care physician. Assessment & Plan (09/05/2018 5:05 PM EST): No evidence of neurogenic claudication or lumbar radiculopathy but patient does have low back pain with stiffness suggestive of lumbar facet arthropathy and sacroiliac dysfunction. She did not do so well with the sulindac so we will stop all anti-inflammatories in light of that and also with her hypertension. She may use acetaminophen not exceeding 2000 mg daily and 10 mg of cyclobenzaprine at nighttime as needed. I would like to refer her to physical therapy but she is under quite a bit of stress now with her daughter having a major operation tomorrow and patient states that when she calls me next week she will let me know when she has the time to do physical therapy. Hypertension 09/05/2018 Assessment & Plan (11/25/2019 12:04 PM EST): Blood pressure in the left arm both sitting and supine was 152/84 and 148/84 respectively. She will continue to monitor her blood pressures at home. We talked about sodium restriction. We spoke about the effect of diclofenac on her blood pressure. She will follow-up with her primary care physician to have a discussion regarding her elevated blood pressure. Assessment & Plan (09/05/2018 5:20 PM EST): Sodium diet and follow-up with primary care physician. Assessment & Plan (09/05/2018 5:06 PM EST): Persistently elevated blood pressure today is 142/92. She is not on antihypertensive medication. I have asked her to speak to her primary care physician about this, keep well-hydrated with at least 3 8 ounce glasses of water daily and to completely eliminate salt from her diet and look at labels of foods to make sure they are low or absent in sodium. I think she will need an antihypertensive drug. Thoracic facet joint syndrome 06/21/2018 Myalgia 06/21/2018 Assessment & Plan (03/20/2019 11:57 AM EDT): Start diclofenac 50 mg twice daily as needed only. Avoid OTC NSAIDs. Sacroiliitis, not elsewhere classified 8 Assessment & Plan (02/15/2025 10:12 PM EDT): Use warm pack versus warm shower prior to gentle, regular ROM, stretching and muscle strengthening particularly core group. She may benefit from topical products such as Arnica, Biofreeze, Voltaren, Aspercreme versus medicated patches such as Salonpas or IcyHot. Assessment & Plan (08/04/2024 11:23 AM EDT): Use warm pack versus warm shower prior to gentle, regular ROM, stretching and muscle strengthening particularly core group. She may benefit from topical products such as Arnica, Biofreeze, Voltaren, Aspercreme versus medicated patches such as Salonpas or IcyHot. Assessment & Plan (02/04/2024 2:03 PM EDT): Use warm pack versus warm shower prior to gentle, regular ROM, stretching and muscle strengthening particularly core group. She may benefit from topical products such as Arnica, Biofreeze, Voltaren, Aspercreme versus medicated patches such as Salonpas or IcyHot. Assessment & Plan (08/02/2023 3:37 PM EDT): Use warm pack versus warm shower prior to gentle, regular ROM, stretching and muscle strengthening particularly core group. She may benefit from topical products such as Arnica, Biofreeze, Voltaren, Aspercreme versus medicated patches such as Salonpas or IcyHot. Assessment & Plan (12/21/2022 10:39 AM EDT): Use warm pack versus warm shower prior to gentle, regular ROM, stretching and muscle strengthening particularly core group. She may benefit from topical products such as Arnica, Biofreeze, Voltaren, Aspercreme versus medicated patches such as Salonpas or IcyHot. Assessment & Plan (09/15/2021 8:55 PM EST): Use warm pack versus warm shower prior to gentle, regular ROM, stretching and muscle strengthening particularly core group. She may benefit from topical products such as Arnica, Biofreeze, Voltaren, Aspercreme versus medicated patches such as Salonpas or IcyHot. Chronic midline thoracic back pain 08/24/2017 Pain in joint of left shoulder 08/24/2017 Neck pain 08/24/2017 Assessment & Plan (02/13/2025 3:30 PM EDT): Use warm packs versus warm shower prior to gentle, regular ROM, stretching and muscle strengthening exercises. Proper posture. Avoid prolonged bending or extending in the neck. Proper neck support during the day and for nighttime. She may benefit from topical Arnica, Biofreeze, Voltaren gel versus medicated patches such as Salonpas or IcyHot patch 2-3 times daily and if needed at bedtime time. Consider formal PT if not better despite above measures. Assessment & Plan (08/04/2024 11:23 AM EDT): Use warm packs versus warm shower prior to gentle, regular ROM, stretching and muscle strengthening exercises. Proper posture. Avoid prolonged bending or extending in the neck. Proper neck support during the day and for nighttime. She may benefit from topical Arnica, Biofreeze, Voltaren gel versus medicated patches such as Salonpas or IcyHot patch 2-3 times daily and if needed at bedtime time. Consider formal PT if not better despite above measures. Assessment & Plan (02/04/2024 2:04 PM EDT): Use warm packs versus warm shower prior to gentle, regular ROM, stretching and muscle strengthening exercises. Proper posture. Avoid prolonged bending or extending in the neck. Proper neck support during the day and for nighttime. She may benefit from topical Arnica, Biofreeze, Voltaren gel versus medicated patches such as Salonpas or IcyHot patch 2-3 times daily and if needed at bedtime time. Consider formal PT if not better despite above measures. Assessment & Plan (08/02/2023 3:37 PM EDT): Use warm packs versus warm shower prior to gentle, regular ROM, stretching and muscle strengthening exercises. Proper posture. Avoid prolonged bending or extending in the neck. Proper neck support during the day and for nighttime. She may benefit from topical Arnica, Biofreeze, Voltaren gel versus medicated patches such as Salonpas or IcyHot patch 2-3 times daily and if needed at bedtime time. Consider formal PT if not better despite above measures. Assessment & Plan (01/03/2023 5:13 PM EDT): Use warm packs versus warm shower prior to gentle, regular ROM, stretching and muscle strengthening exercises. Proper posture. Avoid prolonged bending or extending in the neck. Proper neck support during the day and for nighttime. She may benefit from topical Arnica, Biofreeze, Voltaren gel versus medicated patches such as Salonpas or IcyHot patch 2-3 times daily and if needed at bedtime time. Consider formal PT if not better despite above measures. Bilateral sacroiliitis 08/24/2017 Assessment & Plan (09/20/2020 3:09 PM EST): Somewhat active and painful. No evidence of neurogenic claudication or spinal stenosis. For now I would emphasize core strengthening and if further customers and benefits start 400 mg of etodolac twice daily as needed. I would like to try and temporize the situation until it is safer for her to go and get the fluoroscopically guided sacroiliac joint injections if indeed it is needed. She will follow up with me by phone call to assess the efficacy of the etodolac in approximately 10 days. Assessment & Plan (11/20/2018 12:09 PM EST): Combination of low-grade bilateral sacroiliitis and lumbar facet arthropathy conspire to cause generalized stiffness and pain through the back. We spent quite a long time talking about medication as well as pain control and exercise regimen. She has had multiple physical therapy encounters. I strongly encouraged her to go back and do the home exercise program to strengthen her core. We talked about the utility of well fitting supportive shoes with good shock absorption. Resolved Problems Problem Noted Date Diagnosed Date Resolved Date Neck pain 08/26/2021 01/03/2023 Assessment & Plan (12/21/2021 10:54 AM EDT): Proper neck support for sleep and posture during the day. Joint protection, energy conservation techniques. Use warm pack versus warm shower prior to gentle, regular ROM, stretching and muscle strengthening exercises. Assessment & Plan (09/15/2021 9:02 PM EST): Proper neck support for sleep and posture during the day. Joint protection, energy conservation techniques. Use warm pack versus warm shower prior to gentle, regular ROM, stretching and muscle strengthening exercises. Encounters Date Type Department Care Team Description 06/18/2025 11:54 AM EDT - 06/18/2025 11:59 PM EDT Hospital Encounter [facility] [address] [place] [address] London Perez MD Discharge Disposition: Home or Self Care 06/18/2025 Transcribe Orders [facility] [address] [place] [address] London Perez MD Dysuria (Primary Dx) 05/29/2025 11:58 AM EDT - 05/29/2025 11:59 PM EDT Hospital Encounter [facility] [address] [place] [address] London Perez MD Discharge Disposition: Home or Self Care 05/29/2025 Refill Sneed [facility] Rheumatology [address] [place] [address] Emily George MD Med Change Request 05/28/2025 Refill Sneed [facility] Rheumatology [address] [place] [address] Emily George MD Med Change Request from Last 3 Months Immunizations Immunization Administration Dates Next Due Influenza Quadrivalent Preservative Free IM 06/08 Family History Medical History Relation Comments Cancer Father Diabetes mellitus Father Cancer Mother Hypertension Mother Ovarian cancer Mother Ovarian cancer Paternal Aunt Diabetes mellitus Sibling Relation Status Comments Father Mother Paternal Aunt Sibling Social History Tobacco Use Types Packs/Day Years Used Date Smoking Tobacco: Every Day Cigarettes Smokeless Tobacco: Never Tobacco Cessation:Ready to Q uit: Not Asked; Counseling Given: Not Answered Alcohol Use Standard Drinks/Week Comments Never 0 (1 standard drink = 0.6 oz pur e alcohol) Education Answer Date Recorded Are you interested in more education? Not on elisa e 02/02/2023 Are you concerned about learning? Not on file 02/02/2023 No 02/02/2023 No 02/02/2023 Digital Access Answer Date Recorded No 03/05/2023 No 03/05/2023 Reliable internet access at home? Not on file 03/05/2023 Device with a working camera? Not on file Intimate Partner Violence Answer Date R ecorded Are you denied basic needs s uch as food, clothing, or medical care? No 11/11/2024 In the past 12 months have y ou been in a relationship with a person who hurts, threatens, or tries to control you? No 11/11/2024 Are you denied basic needs s uch as food, clothing, or medical care? No 11/11/2024 In the past 12 months have y ou been in a relationship with a person who hurts, threatens, or tries to control you? No 11/11/2024 Comments No Sex and Gender Information Value Date Recorded Sex Assigned at Not on file Legal Sex Female 9:52 PM EDT Gender Identity Not on file Sexual Orientation Not on file Last Filed Vital Signs Vital Sign Reading Time Taken Comments Blood Pressure 132/78 02/13/2025 3:11 PM EDT Pulse 74 02/13/2025 3:11 PM EDT Temperature 36 C (96.8 F) 11/11/2024 12:00 PM EST Respiratory Rate 32 11/11/2024 12:15 PM EST Oxygen Saturation 96% 02/13/2025 3:11 PM EDT Inhaled Oxygen Concentration - - Weight 63.8 kg (140 lb 9.6 oz) 02/13/2025 3:11 P M EDT Height 160 cm (5' 3 ) 02/13/2025 3:11 PM EDT Body Mass Index 24.91 02/13/2025 3:11 PM EDT Plan of Treatment Upcoming Encounters Date Type Department Care Team (Late st Contact Info) Description 08/19/2025 10:00 AM EST Office Visit [facility] Rheumatology [address] [place] [address] [place] [address] Emily George MD [address] [facility], [address] [place] [address] [email or web address] 02/18/2026 3:00 PM EDT Office Visit [facility] Family Medicine [address] [place] [address] [place] [address] Guera Banks [address] [facility], [address] [place] [address] [email or web address] Health Maintenance Due Date Last Done Comments Adult Td,Tdap Booster 1958 LIPID PANEL 1958 DEPRESSION SCREENING 1970 SMOKING Hx and SMOKELESS TOBACCO SCREENING 1971 PNEUMOCOCCAL VACCINES (50+ years) (1 of 2 - PCV) 1977 COLOGUARD 2003 COLONOSCOPY 2003 COLORECTAL CANCER SCREENING 2003 FIT TEST 2003 FOBT 2003 SIGMOIDOSCOPY 2003 VIRTUAL COLONOSCOPY 2003 ZOSTER VACCINES (1 of 2) 01/22/2008 TSH LEVEL 08/26/2022 08/26/2021, 08/08, 08/07/2018 INFLUENZA VACCINE (#1) 2025 3, 06/23/2022, 10/17/2021, Additional history exists COVID-19 VACCINE ( season) 2025 BLOOD PRESSURE 08/16/2025 02/13/2025 MAMMOGRAM 07/25/2026 07/25/2024, 07/12/2022, 04/05/2022, Additional history exists RSV VACCINE (1 - 1-dose 75+ series) 2033 HEPATITIS C SCREENING Completed 08/07/2018 OSTEOPOROSIS SCREENING INITIAL (ONE-TIME) Completed 06/18/2024, 04/05/2022, 11/03/2019 HEPATITIS A VACCINES Aged Out No long er eligible based on patient's age to complete this topic HIB VACCINES Aged Out No longer eligi ble based on patient's age to complete this topic MENINGOCOCCAL VACCINES (ACWY) Aged Out No longer eligible based on patient's age to complete this topic MENINGOCOCCAL VACCINES (B) Aged Out N o longer eligible based on patient's age to complete this topic Medical Devices Not on file Procedures Procedure Name Priority Date/Time Associated Diagnosis Comments URINE CULTURE Routine 06/18/2025 12:11 PM EDT Dysuria URINE SEDIMENT Routine 05/29/2025 12:05 PM EDT URINALYSIS W/REFLEX URINE CULTURE Routine 05/29/2025 12:05 PM EDT Dysuria URINE CULTURE Routine 05/29/2025 12:05 PM EDT BI MAMMOGRAM SCREENING WITH TOMOSYNTHESIS WITH CAD (BILATERAL) Routine 07/25/2024 9:55 AM EDT Screening mammogram for breast cancer BD DXA AXIAL (SPINE) WITH HIP Routine 06/18/2024 1:01 PM EDT Post-menopausal TSH WITH REFLEX Routine 08/26/2021 12:47 PM EST Chronic fatigue Hair loss FATOUMATA positive HEPATITIS C ANTIBODY, QUALITATIVE Routine 08/07/2018 12:29 PM EDT Undifferentiated connective tissue disease from Last 3 Months or Most Recently Relevant to Health Maintenance Results * (ABNORMAL) Urine Culture (06/18/2025 12:11 PM EDT) Only the most recent of2 resultswithin the time period is included. Special Requests None 06/18/2025 12:11 PM EDT [facility] Urine Culture 10,000 to 100,000 colony forming units per mL KLEBSIELLA PNEUMONIAE(A) 06/20/2025 10:40 AM EDT [facility] Urine (Urine) 06/18/2025 12: 11 PM EDT 06/18/2025 12:21 PM EDT Comment:CLEAN CATCH Narrative Organism Antibiotic Method Susceptibility Klebsiella pneumoniae Ampicillin MIRNA METHOD >=32: Resistant Klebsiella pneumoniae Ampicillin + Sulbactam MIRNA METHO D 8: Susceptible Klebsiella pneumoniae Cefepime MIRNA METHOD <=0.12: Susceptible Klebsiella pneumoniae Ceftazidime MIRNA METHOD <=0.5: Susceptible Klebsiella pneumoniae Ceftriaxone MIRNA METHOD <=0.25: Susceptible Klebsiella pneumoniae Ciprofloxacin MIRNA METHOD 1: Resistant Klebsiella pneumoniae Extended Spectrum B-lactamase IA C METHOD Negative Klebsiella pneumoniae Gentamicin MIRNA METHOD <=1: Susceptible Klebsiella pneumoniae Levofloxacin MIRNA METHOD 4: Resistant Klebsiella pneumoniae Nitrofurantoin MIRNA METHOD 256: Resistant Klebsiella pneumoniae Piperacillin-tazobactam MIRNA METH OD 8: Susceptible Klebsiella pneumoniae Trimethoprim/sulfamethoxazole IA C METHOD <=20: Susceptible Klebsiella pneumoniae Cefazolin(urine) MIRNA METHOD 4: Susceptible Comment: us London Perez MD MICROBIOLOGY - GENERAL ORDERABL ES Final Result [facility] [address] [place] [address] * (ABNORMAL) Urinalysis w/reflex Urine Culture (05/29/2025 12:05 PM EDT) COLOR Yellow Yellow [facility] CLARITY Clear [facility] GLUCOSE Negative Negative [facility] BILI 2+(A) Negative [facility] KETONES Negative Negative [facility] SPECIFIC GRAVITY 1.015 1.005 - 1.030 [facility] BLOOD Negative Negative [facility] PH 6.5 5.0 - 8.0 [facility] Protein-UA 1+(A) Negative [facility] NITRITE Negative Negative [facility] Leukocyte esterase, ur Trace(A) Negative [facility] Urine (Urine) 05/29/2025 12: 05 PM EDT 05/29/2025 12:07 PM EDT London Perez MD URINE ORDERABLES Final Result Performing Organization Address [facility] Co de Phone Number [address] [address] * (ABNORMAL) Urine sediment (05/29/2025 12:05 PM EDT) WBC 50-100(A) NONE SEEN /hpf [facility] RBC 0-2(A) NONE SEEN /hpf [facility] URINE EPITHELIAL 5-10(A) NONE SEEN [facility] MUCUS NONE SEEN NONE SEEN /hpf [facility] BACTERIA Trace(A) NONE SEEN /hpf [facility] 05/29/2025 12:0 5 PM EDT 05/29/2025 12:07 PM EDT London Perez MD URINE ORDERABLES Final Result Performing Organization Address City/[facility]/ZIP Co de Phone Number [address] [address] * BI MAMMOGRAM SCREENING WITH TOMOSYNTHESIS WITH CAD (BILATERAL) (07/25/2024 9:55 AM EDT) Anatomical Region Laterality Modality Breast Left, Breast Right, Breast Bilateral Bila teral Mammography 07/28/2024 8:22 AM EDT Impressions 07/28/2024 8:26 AM EDT No mammographic evidence of malignancy in either breast. Annual screening mammography is recommended. BI-RADS 1 NEGATIVE The patient will be notified of the results and recommendations. Narrative 07/28/2024 8:26 AM EDT BI MAMMOGRAM SCREENING WITH TOMOSYNTHESIS WITH CAD (BILATERAL) Additional patient information: Screening. COMPARISON: Comparison is made with relevant prior imaging. Breast composition: There are scattered areas of fibroglandular density. FINDINGS: No abnormal masses, suspicious calcifications, or other significant findings are identified mammographically in either breast. Procedure Note Kriss Laws MD - 07/28/2024 BI MAMMOGRAM SCREENING WITH TOMOSYNTHESIS WITH CAD (BILATERAL) Additional patient information: Screening. COMPARISON: Comparison is made with relevant prior imaging. Breast composition: There are scattered areas of fibroglandular density. FINDINGS: No abnormal masses, suspicious calcifications, or other significantfindings are identified mammographically in either breast. IMPRESSION: No mammographic evidence of malignancy in either breast. Annual screening mammography is recommended. BI-RADS 1 NEGATIVE The patient will be notified of the results and recommendations. us Unknown Jameson [facility] IMG MG EXAMS Final Result * BD DXA AXIAL (SPINE) WITH HIP (06/18/2024 1:01 PM EDT) Anatomical Region Laterality Modality Bone Density Bone Density 06/18/2024 1:00 PM EDT Impressions 06/18/2024 1:02 PM EDT Interpretation: Osteopenia. Narrative 06/18/2024 1:02 PM EDT Referred By: MALENA ADAMS Scanner: [id number] Data A with serial# of [id number] located at [facility] Bone Density Scan (DXA) 06/18/24 Details of prior DXA scans are available by clicking View Image BMD T- Z- Skeletal Site gm/cm2 score score BMD Change Since Prior Scan ------ ----- ----- PA Spine (L1-L4) 0.889 -1.40 0.40 -0.016 (stable) since 04/05/2022 Total Hip (Right) 0.907 -0.30 1.00 0.002 (stable) since 04/05/2022 Femoral Neck (Right) 0.625 -2.00 -0.40 0.018 (stable) since 04/05/2022 ------ ----- ----- * Denotes significant change when >= 0.022 g/cm2 for the spine, 0.027 g/cm2 for the total hip, 0.029 g/cm2 for the femoral neck. Interpretation: Osteopenia. Technical Quality: Imaging of all sites was of adequate quality. FRAX: Based on FRAX(r) 3.6 ([place] White female), this patient's likelihood of hip fracture is 3.9% and major osteoporotic fracture is 14.1% over the next 10 years. The patient reported the following risks of fracture on a questionnaire: smoking and rheumatoid arthritis. Additional Information: -World Health Organization criteria classify adults based on lowest T-score at PA spine, hip or forearm: Normal (T-score >= -1.0), Osteopenia (T-score between -1 and -2.5), or Osteoporosis (T-score <= -2.5). At [facility], T-scores are compared to peak bone density of a young white gender matched reference population. - For premenopausal women and men under the age of 50, Z-scores (comparison to age, gender, and ethnicity matched reference population) are used: Above expected range for age (Z-score >= 2.0), Within expected range of age (Z-score 1.9 to -1.9), or Below expected range for age (Z-score <= -2.0). - The Bone Health and Osteoporosis Foundation recommends that treatment be considered in men aged more than 50 years and in postmenopausal women with ANY of the following: Prior hip or vertebral fractures; T-score of <= -2.5 at the PA spine or hip; or 10 year fracture probability by FRAX of >= 3% for the hip or >= 20% for major osteoporotic fracture. - The FRAX algorithm (https://www.laith.ac.uk/FRAX/tool.aspx) is designed to predict 10-year fracture risk in treatment-naive adults between the ages of 40 and 90. It is not intended to be used in those receiving pharmacologic osteoporosis treatment. - Including race/ethnicity in the generation of T- or Z-scores or in the FRAX calculation is complicated, and currently undergoing active review to ensure that we can give patients the best information on their risk of fracture. -Some prior studies may not be compatible with our comparison software. -Click on View Full Report to see subsequent pages with images and prior bone density results. Reviewed By: Ángel Yost MD on 06/18/2024 13:02:49 Procedure Note Ángel Yost MD - 06/18/2024 Referred By: MALENA ADAMS Scanner: [id number] Data A with serial# of [id number] located at [facility] Bone Density Scan (DXA) 06/18/24 Details of prior DXA scans are available by clicking View Image BMD T- Z- Skeletal Site gm/cm2 score score BMD Change Since Prior Scan ------ ----- PA Spine (L1-L4) 0.889 -1.40 0.40 -0.016 (stable) since04/05/2022 Total Hip (Right) 0.907 -0.30 1.00 0.002 (stable) since04/05/2022 Femoral Neck (Right) 0.625 -2.00 -0.40 0.018 (stable) since04/05/2022 ------ ----- * Denotes significant change when >= 0.022 g/cm2 for the spine, 0.027g/cm2 for the total hip, 0.029 g/cm2 for the femoral neck. Interpretation: Osteopenia. Technical Quality: Imaging of all sites was of adequate quality. FRAX: Based on FRAX(r) 3.6 ([place] White female), this patient's likelihoodof hip fracture is 3.9% and major osteoporotic fracture is 14.1% over thenext 10 years. The patient reported the following risks of fracture on a questionnaire: smoking and rheumatoid arthritis. Additional Information: -World Health Organization criteria classify adults based on lowestT-score at PA spine, hip or forearm: Normal (T-score >= -1.0), Osteopenia (T-score between -1 and -2.5), or Osteoporosis (T-score <= -2.5). At [facility], T-scores are compared to peak bone density of a young white gender matched reference population. - For premenopausal women and men under the age of 50, Z-scores(comparison to age, gender, and ethnicity matched reference population) are used:Above expected range for age (Z-score >= 2.0), Within expected range of age (Z-score 1.9 to -1.9), or Below expected range for age (Z-score <= -2.0). - The Bone Health and Osteoporosis Foundation recommends that treatment be considered in men aged more than 50 years and in postmenopausal women with ANY of the following: Prior hip or vertebral fractures; T-score of <= -2.5 at the PA spine or hip; or 10 year fracture probability by FRAX of >= 3%for the hip or >= 20% for major osteoporotic fracture. - The FRAX algorithm (https://www.laith.ac.uk/FRAX/tool.aspx) is designed to predict 10-year fracture risk in treatment-naive adultsbetween the ages of 40 and 90. It is not intended to be used in those receiving pharmacologic osteoporosis treatment. - Including race/ethnicity in the generation of T- or Z-scores or in the FRAX calculation is complicated, and currently undergoing active review to ensure that we can give patients the best information on their risk of fracture. -Some prior studies may not be compatible with our comparison software. -Click on View Full Report to see subsequent pages with images and prior bone density results. Reviewed By: Ángel Yost MD on 06/18/2024 13:02:49 IMPRESSION: Interpretation: Osteopenia. us Malena Adams MD IMG BD BONE DENSITY DEXA F inal Result * TSH with reflex (08/26/2021 12:47 PM EST) TSH 1.12 0.27 - 4.20 uIU/mL [facility] Blood 08/26/2021 12:4 7 PM EST 08/26/2021 12:49 PM EST us Emily George MD LAB BLOOD ORDERABLES Fin al Result Performing Organization Address [facility]/ZIP Co de Phone Number [address] [address] * Hepatitis C antibody, qualitative (08/07/2018 12:29 PM EDT) HCV Negative Negative [facility] Comment: This is a screening test and should be confirmed with molecular testing Blood 08/07/2018 12:2 9 PM EDT 08/07/2018 12:32 PM EDT us Hayden Wells MD LAB BLOOD ORDERABLES Final Result Performing Organization Address [facility]/ZIP Co de Phone Number [address] [address] from Last 3 Months or Most Recently Relevant to Health Maintenance Insurance AETNA HMO POS EPO [facility] [place] [address] [place], [place] [address]O POS EPO AETNA O POS EPO [facility] [place] EPO A[employer] O POS EPO AETNA O POS EPO A[employer] O POS EPO A[employer] HMO POS EPO Care Teams 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 Historical LMR Provider 07/25/17 Emily George MD [address] [place] [address], [facility] [address] [place] [address] [email or web address] Historical LMR Provider 07/25/17 Malena Adams MD [address] [place] [address] Historical LMR Provider 07/25/17 Additional Source Comments The information contained in this document represents components of the legal health record. It is not the complete legal health record.[facility]
--- OUTSIDE RECORDS SUMMARY | 2025-07-01 16:18 | XMS_ITS | Encounter Summary ---
Author Organization [facility] Address [address] [place] [address] [place] [address] Phone Care Team Providers Care Exterminator Helper Name Role Phone Hayden Wells MD Unavailable [email or web address] Charly Gordon MD Unavailable Emily George MD Unavailable [phone] Juan Manuel Knox MD Unavailable [phone] Raquel Alicea NP Unavailable [phone] Rupinder Vicente MD Unavailable Pepe Adams MD Unavailable [phone] Luis Lopez MD Unavailable [phone] Rafaela Shultz MD Unavailable [phone] Pepe Adams MD Primary Care Provider + [phone] Encounter Details Date Type Department Care Team (Late st Contact Info) Description 10/26/2020 Procedure Pass [facility] - [address] [place] [address] Social History Tobacco Use Types Packs/Day Years [...] Description 08/19/2025 10:00 AM EST Office Visit [facility] Rheumatology [address] [place] [address] [place] [address] Emily George MD [address] [place] [address], [address] [place] [address] [email or web address] 02/18/2026 3:00 PM EDT Office Visit [facility] Family Medicine [address] [place] [address] [place] [address] Guera Banks [address] [place] [address], [address] [place] [address] [email or web address] documented as of this encounter Visit Diagnoses Not on filedocumented in this encounter Care Teams Exterminator Helper Relationship Specialty Start Date End Date [facility] [address] [place] [address] PCP - General Internal Medicine 07/31/17 Hayden Wells MD [email or web address] Historical LMR Provider 07/25/17 Charly Gordon MD [address] [place] [address], [address] [place] [address] Historical LMR Provider 07/25/17 10/15/21 Emily George MD [address] [place] [address], [address] [place] [address] Historical LMR Provider 07/25/17 Juan Manuel Knox MD [address] [place] [address], [address] [place] [address] Historical LMR Provider 07/25/17 10/15/21 Raquel Alicea NP [address] [place] [address] Historical LMR Provider 07/25/17 2 Rupinder Vicente MD [address] [place] [address] [email or web address] Historical LMR Provider 07/25/17 10/15/21 Pepe Adams MD [address] [place] [address] Historical LMR Provider 07/25/17 Luis Lopez MD [address] [place] [address] [email or web address] Historical LMR Provider 07/25/17 10/15/21 Rafaela Shultz MD [address] [place] [address] [email or web address] Historical LMR Provider 07/25/17 10/15/21 documented as of this encounter Additional Source Comments The information contained in this document represents components of the legal health record. It is not the complete legal health record.[facility]
--- OUTSIDE RECORDS SUMMARY | 2025-07-01 16:19 | XMS_ITS | Encounter Summary ---
Author Organization [facility] Address [address] [place] [address] [place] [address] Phone Care Team Providers Care Purchasing Contracting Clerk Name Role Phone Hayden Wells MD Unavailable [facility] [email or web address] Charly Gordon MD Unavailable Emily George MD Unavailable [phone] Juan Manuel Knox MD Unavailable Raquel Alicea NP Unavailable [phone] Rupinder Vicente MD [facility]available [facility] MD Unavailable [phone] Luis Lopez MD Unavailable [phone] Rafaela Shultz MD Unavailable [phone] Pepe Adams MD Primary Care Provider + [phone] Encounter Details Date Type Department Care Team (Late st Contact Info) Description 10/26/2020 Ancillary Orders Virtual Department [address] [place] [address] Pepe Adams MD [address] [place] [address] [id number] Breast screening Social History Tobacco Use Types [...] Description 08/19/2025 10:00 AM EST Office Visit [facility] Rheumatology [address] [place] [address] Emily George MD [address] [facility], [address] [place] [address] [email or web address] 02/18/2026 3:00 PM EDT Office Visit [facility] Family Medicine [address] [place] [address] Guera Banks [address] [facility], [address] [place] [address] [email or web address] documented as of this encounter Results * BI MAMMOGRAM SCREENING WITH TOMOSYNTHESIS WITH CAD (BILATERAL) (11/04/2020 1:43 PM EST) Anatomical Region Laterality Modality Breast Left, Breast Right, Breast Bilateral Bila teral Mammography 11/04/2020 2:26 PM EST Impressions 11/04/2020 2:30 PM EST No findings suspicious for malignancy. In the absence of a worrisome palpable abnormality, annual screening mammography is recommended. BI-RADS CATEGORY: 2 - Benign finding. DENSITY: There are scattered fibroglandular densities. Narrative 11/04/2020 2:30 PM EST COMPARISON: 12/04/2013 through 11/03/2019. Bilateral 3-D tomosynthesis with 2-D reconstructions in the CC and MLO projection of each breast was obtained. Computer-aided detection system also utilized. No new mass, asymmetry, architectural distortion or suspicious calcifications have become apparent on either side. Chronic lymph nodes in the right upper outer quadrant and both axillae are unchanged. Procedure Note Dago Vee MD - 11/04/2020 COMPARISON: 12/04/2013 through 11/03/2019. Bilateral 3-D tomosynthesis with 2-D reconstructions in the CC and MLOprojection of each breast was obtained. Computer-aided detection systemalso utilized. No new mass, asymmetry, architectural distortion or suspiciouscalcifications have become apparent on either side. Chronic lymph nodes in the right upper outer quadrant and both axillaeare unchanged. IMPRESSION: No findings suspicious for malignancy. In the absence of a worrisomepalpable abnormality, annual screening mammography is recommended. BI-RADS CATEGORY: 2 - Benign finding. DENSITY: There are scattered fibroglandular densities. Pepe Adams MD IMG MG EXAMS Final Resu lt documented in this encounter Visit Diagnoses Diagnosis Breast screening Breast screening, unspecified Breast screening Breast screening, unspecified documented in this encounter Care Teams Purchasing Contracting Clerk Relationship Specialty Start Date End Date Pepe Adams MD [address] [place] [address] PCP - General Internal Medicine 07/31/17 Hayden Wells MD [email or web address] Historical LMR Provider 07/25/17 Charly Gordon MD [address] [place] [address], [address] [place] [address] Historical LMR Provider 07/25/17 10/15/21 Emily George MD [address] [place] [address], [address] [place] [address] Historical LMR Provider 07/25/17 Juan Manuel Knox MD [address] [place] [address], [address] [place] [address] Historical LMR Provider 07/25/17 10/15/21 Raquel Alicea NP [address] [place] [address] Historical LMR Provider 07/25/17 2 Rupinder Vicente MD [address] [place] [address] Historical LMR Provider 07/25/17 10/15/21 Pepe Adams MD [address] [place] [address] Historical LMR Provider 07/25/17 Luis Lopez MD [address] [place] [address] Historical LMR Provider 07/25/17 10/15/21 Rafaela Shultz MD [address] [place] [address] [email or web address] Historical LMR Provider 07/25/17 10/15/21 documented as of this encounter Additional Source Comments The information contained in this document represents components of the legal health record. It is not the complete legal health record.[facility]
--- OUTSIDE RECORDS SUMMARY | 2025-07-01 16:19 | XMS_ITS | Encounter Summary ---
Author Organization [facility] Address [address] [facility] [address] [place] [address] Phone Care Team Providers Care Maintenance Mechanic Elevators Name Role Phone Hayden Wells MD Unavailable [email or web address] Emily George MD Unavailable [phone] MugPepe MD Unavailable [phone] Pepe Adams MD Primary Care Provider + [phone] Encounter Details Date Type Department Care Team (Late st Contact Info) Description 10/06/2024 Procedure Pass OR Admitting Dept - Virtual Department [address] [place] [address] Social History Tobacco Use Types Packs/Day Years Used Date Smoking Tobacco: Every Day Cigarettes Smokeless Tobacco: Never Alcohol Use Standard Drinks/Week Comments Never 0 [...] as food, clothing, or medical care? No 10/06/2024 In the past 12 months have y ou been in a relationship with a person who hurts, threatens, or tries to control you? No 10/06/2024 Are you denied basic needs s uch as food, clothing, or medical care? No 10/06/2024 In the past 12 months have y ou been in a relationship with a person who hurts, threatens, or tries to control you? No 10/06/2024 Comments No Sex and Gender Information Value Date Recorded Sex Assigned at Not on file Legal Sex Female 9:52 PM EDT Gender Identity Not on file Sexual Orientation Not on file documented as of this encounter Plan of Treatment Upcoming Encounters Date Type Department Care Team (Late st Contact Info) Description 08/19/2025 10:00 AM EST Office Visit [facility] Rheumatology [address] [place] [address] [place] [address] Emily George MD [address] [place] [address], [address] [place] [address] [email or web address] 02/18/2026 3:00 PM EDT Office Visit [facility] Family Medicine [address] [place] [address] Guera Banks [address] [place] [address], [address] [place] [address] [email or web address] documented as of this encounter Visit Diagnoses Not on filedocumented in this encounter Care Teams Maintenance Mechanic Elevators Relationship Specialty Start Date End Date Pepe Adams MD [address] [place] [address] PCP - General Internal Medicine 07/31/17 Hayden Wells MD [email or web address] Historical LMR Provider 07/25/17 Emily George MD [address] [place] [address], [address] [place] [address] Historical LMR Provider 07/25/17 Pepe Adams MD [address] [place] [address] Historical LMR Provider 07/25/17 documented as of this encounter Additional Source Comments The information contained in this document represents components of the legal health record. It is not the complete legal health record.[facility]
--- OUTSIDE RECORDS SUMMARY | 2025-07-01 16:19 | XMS_ITS | Encounter Summary ---
Author Organization [facility] Address [address] [place] [address] [place] [address] Phone Care Team Providers Care Public Relations Account Supervisor Name Role Phone Hayden Wells MD Unavailable [email or web address] Emily George MD Unavailable [phone] MuggPepe MD Unavailable [phone] [facility] Primary Care Provider + [phone] Encounter Details Date Type Department Care Team (Late st Contact Info) Description 04/15/2024 Procedure Pass [facility] - [address] [place] [address] Social History Tobacco Use Types Packs/Day Years [...] with a working camera? Not on file Comments No Sex and Gender Information Value Date Recorded Sex Assigned at Not on file Legal Sex Female 9:52 PM EDT Gender Identity Not on file Sexual Orientation Not on file documented as of this encounter Plan of Treatment Upcoming Encounters Date Type Department Care Team (Late st Contact Info) Description 08/19/2025 10:00 AM EST Office Visit [facility] Rheumatology [address] [place] [address] Emily George MD [address] [place] [address], [address] [place] [address] [email or web address] 02/18/2026 3:00 PM EDT Office Visit [facility] Family Medicine [address] [place] [address] Guera Banks [address] [place] [address], [address] [place] [address] [email or web address] documented as of this encounter Visit Diagnoses Not on filedocumented in this encounter Care Teams Public Relations Account Supervisor Relationship Specialty Start Date End Date Pepe Adams MD [address] [place] [address] PCP - General Internal Medicine 07/31/17 Hayden Wells MD [email or web address] Historical LMR Provider 07/25/17 Emily George MD [address] [place] [address], [address] [place] [address] Historical LMR Provider 07/25/17 Pepe Adams MD [address] [place] [address] Historical LMR Provider 07/25/17 documented as of this encounter Additional Source Comments The information contained in this document represents components of the legal health record. It is not the complete legal health record.[facility]
--- OUTSIDE RECORDS SUMMARY | 2025-07-01 16:19 | XMS_ITS | Encounter Summary ---
Author Organization [facility] Address [address] [facility] [address] [place] [address] Phone Care Team Providers Care Corporate Planner Name Role Phone Hayden Wells MD Unavailable [email or web address] Emily George MD Unavailable [phone] Mugg, Pepe Abraham MD Unavailable [phone] [facility] [place] Pepe Abraham MD Primary Care Provider + [phone] Encounter Details Date Type Department Care Team (Latest Contact Info) Description 10/26/2023 Transcribe Orders Virtual Department [address] [place] [address] [facility] [place] Pepe Abraham MD [address] [place] [address] Post-menopausal (Primary Dx) Social History Tobacco Use Types [...] Description 08/19/2025 10:00 AM EST Office Visit [facility] Rheumatology [address] [place] [address] Emily George MD [address] [facility], [address] [place] [address] [email or web address] 02/18/2026 3:00 PM EDT Office Visit [facility] Family Medicine [address] [place] [address] Guera Banks [address] [facility], [address] [place] [address] [email or web address] documented as of this encounter Results * BD DXA AXIAL (SPINE) WITH HIP (06/18/2024 1:01 PM EDT) Anatomical Region Laterality Modality Bone Density Bone Density 06/18/2024 1:00 PM EDT Impressions 06/18/2024 1:02 PM EDT Interpretation: Osteopenia. Narrative 06/18/2024 1:02 PM EDT Referred By: PEPE GRIFFIN Scanner: Spyra A with serial# of [id number] located at [facility] Bone Density Scan (DXA) 06/18/24 Details of [...] -2.5), or Osteoporosis (T-score <= -2.5). At [facility], T-scores are compared to peak bone density [...] Ángel Yost MD - 06/18/2024 Referred By: PEPE GRIFFIN Scanner: Spyra A with serial# of [id number] located at [facility] Bone Density Scan (DXA) 06/18/24 Details of prior DXA scans are available by clicking View Image BMD T- Z- Skeletal Site gm/cm2 score score BMD Change Since Prior Scan ------ ----- PA Spine (L1-L4) 0.889 -1.40 0.40 -0.016 (stable) since04/05/2022 Total Hip (Right) 0.907 -0.30 1.00 0.002 (stable) since04/05/2022 Femoral Neck (Right) 0.625 -2.00 -0.40 0.018 (stable) 04/05/2022 ------ ----- * Denotes significant change when [...] -2.5), or Osteoporosis (T-score <= -2.5). At [facility], T-scores are compared to peak bone density [...] MD on 06/18/2024 13:02:49 IMPRESSION: Interpretation: Osteopenia. Pepe Griffin MD IMG BD BONE DENSITY DEXA F inal Result documented in this encounter Visit Diagnoses Diagnosis Post-menopausal- Primary Asymptomatic postmenopausal status (age-related) (natural) Post-menopausal Asymptomatic postmenopausal status (age-related) (natural) documented in this encounter Care Teams Corporate Planner Relationship Specialty Start Date End Date Pepe Griffin MD [address] [place] [address] PCP - General Internal Medicine 07/31/17 Hayden Wells MD [email or web address] Historical LMR Provider 07/25/17 Emily George MD [address] [place] [address], [address] [place] [address] [email or web address] Historical LMR Provider 07/25/17 Pepe Griffin MD [address] [place] [address] Historical LMR Provider 07/25/17 documented as of this encounter Additional Source Comments The information contained in this document represents components of the legal health record. It is not the complete legal health record.[facility]
--- OUTSIDE RECORDS SUMMARY | 2025-07-01 16:19 | XMS_ITS | Encounter Summary ---
Author Organization [facility] Address [address] [place] [address] [place] [address] Phone Care Team Providers Care Rehabilitation Attendant Name Role Phone Hayden Wells MD Unavailable [email or web address] Charly Gordon MD Unavailable Emily George MD Unavailable [phone] Juan Manuel Knox MD Unavailable [phone] Raquel Alicea NP Unavailable [phone] Rupinder Vicente MD Unavailable Pepe Adams MD Unavailable [phone] Luis Lopez MD Unavailable [phone] Rafaela Shultz MD Unavailable [phone] Pepe Adams MD Primary Care Provider Reason for Referral * MRI/CAT Scan - Closed Specialty Diagnoses / Procedures Referred By Contac t Referred To Contact Radiology Diagnoses Acute low back pain with radicular symptoms, duration less than 6 weeks Procedures MRI Cervical Spine MRI Thoracic Spine Pepe Adams MD [address] [place] [address] Phone: tel: fax: Referral ID Status Reason Start Date Expiration Date Visits Re quested Visits Authorized [id number] Closed 10/25/2017 10/25/2018 1 1 Encounter Details Date Type Department Care Team (Late st Contact Info) Description 10/25/2017 Ancillary Orders Virtual Department [address] [place] [address] Pepe Adams MD [address] [place] [address] Acute low back pain with radicular symptoms, duration less than 6 weeks Social History Tobacco Use Types Packs/Day Years Used Date Smoking Tobacco: Every Day Smokeless Tobacco: Never Comments Unknown Sex and Gender Information Value Date Recorded Sex Assigned at Not on file Legal Sex Female 9:52 PM EDT Gender Identity Not on file Sexual Orientation Not on file documented as of this encounter Plan of Treatment Upcoming Encounters Date Type Department Care Team (Late Contact Info) Description 08/19/2025 10:00 AM EST Office Visit [facility] Rheumatology [address] [place] [address] Emily George MD [address] [place] [address], [address] [address] [email or web address] 02/18/2026 3:00 PM EDT Office Visit [facility] Family Medicine [address] [place] [address] Guera Banks [address] [facility], [address] [address] [email or web address] documented as of this encounter Results * MRI CERVICAL SPINE (BONE) WITHOUT CONTRAST (11/01/2017 7:25 PM EST) Anatomical Region Laterality Modality C-spine Magnetic Resonan ce 11/01/2017 7:19 PM EST Impressions 11/01/2017 7:39 PM EST Moderate spondylotic changes as above but without prominent canal or foraminal stenosis. POS - [id number] Ordering physician: Pepe Adams MD Edited by: Alisha Benton on 11/01/2017 7:35 PM Narrative 11/01/2017 7:39 PM EST HISTORY: Neck pain with bilateral upper extremity radiculopathy. COMPARISON: None. TECHNIQUE: Exam performed on a 1.5 Cecelia high-field MRI scanner. Sagittal T1, T2 and STIR, axial T2* gradient echo and 3D bright fluid sequences were obtained. FINDINGS: At the craniocervical junction no finding of concern is identified. At C2-3, no disc abnormality of concern is identified. There is mild facet degenerative change on the left without prominent hypertrophy. At C3-4 no disc abnormality of concern. No canal or foraminal stenosis. There is mild to moderate facet degenerative change but the bony proliferation is not towards the foramina. At C4-5 there is moderate to marked facet arthropathy on the left and mild arthropathy on the right. This leads to some trace anterolisthesis. There does not appear to be prominent bony neural foraminal encroachment. At C5-6 there is degenerative disc disease with mild disc ridge complex and some trace uncovertebral spurring but no prominent foraminal or canal stenosis. At C6-7 there is some mild disc bulging. No canal or foraminal stenosis. At C7-T1 no disc abnormality. No canal or foraminal stenosis. On sagittal views from T1-2 through T4-5 no disc abnormality of concern is identified. No worrisome marrow signal change. Fatty lesion noted in T4. No intrinsic cord signal abnormality. No syrinx or myelopathic signal identified. Study is not tailored for evaluation of regional soft tissues but no adenopathy or other soft tissue finding of clear concern is detected within the [id number]-[id number]-odpf. No jennifer cerebellar tonsillar ectopia. Procedure Note Xander Arce MD - 11/01/2017 HISTORY: Neck pain with bilateral upper extremity radiculopathy. COMPARISON: None. TECHNIQUE: Exam performed on a 1.5 Cecelia high-field MRI scanner. SagittalT1, T2 and STIR, axial T2* gradient echo and 3D bright fluid sequenceswere obtained. FINDINGS: At the craniocervical junction no finding of concern is identified. At C2-3, no disc abnormality of concern is identified. There is mildfacet degenerative change on the left without prominent hypertrophy. At C3-4 no disc abnormality of concern. No canal or foraminal stenosis.There is mild to moderate facet degenerative change but the bonyproliferation is not towards the foramina. At C4-5 there is moderate to marked facet arthropathy on the left and mildarthropathy on the right. This leads to some trace anterolisthesis. Theredoes not appear to be prominent bony neural foraminal encroachment. At C5-6 there is degenerative disc disease with mild disc ridge complexand some trace uncovertebral spurring but no prominent foraminal or canalstenosis. At C6-7 there is some mild disc bulging. No canal or foraminalstenosis. At C7-T1 no disc abnormality. No canal or foraminal stenosis. On sagittal views from T1-2 through T4-5 no disc abnormality of concern isidentified. No worrisome marrow signal change. Fatty lesion noted in T4. No intrinsic cord signal abnormality. No syrinx or myelopathic signalidentified. Study is not tailored for evaluation of regional soft tissues but noadenopathy or other soft tissue finding of clear concern is detectedwithin the dnjes-ey-cask. No jennifer cerebellar tonsillar ectopia. IMPRESSION: Moderate spondylotic changes as above but without prominent canal orforaminal stenosis. POS - [id number] Ordering physician: Pepe Adams MD Edited by: Alisha Benton on 11/01/2017 7:35 PM Pepe Adams MD IMG MR XSPECIALTY Final Re sult documented in this encounter Visit Diagnoses Diagnosis Acute low back pain with radicular symptoms, duration less than 6 weeks Acute low back pain with radicular symptoms, duration less than 6 weeks documented in this encounter Care Teams Rehabilitation Attendant Relationship Specialty Start Date End Date Pepe Adams MD [address] [place] [address] PCP - General Internal Medicine 07/31/17 Hayden Wells MD [email or web address] Historical LMR Provider 07/25/17 Charly Gordon MD [address] [place] [address], [address] [address] Historical LMR Provider 07/25/17 10/15/21 Emily George MD [address] [place] [address], [address] [address] Historical LMR Provider 07/25/17 Juan Manuel Knox MD [address] [place] [address], [address] [address] Historical LMR Provider 07/25/17 10/15/21 aRquel Alicea NP [address] [place] [address] Historical LMR Provider 07/25/17 2 Rupinder Vicente MD [address] [place] [address] [email or web address] Historical LMR Provider 07/25/17 10/15/21 Pepe Adams MD [address] [place] [address] Historical LMR Provider 07/25/17 Luis Lopez MD [address] [place] [address] [email or web address] Historical LMR Provider 07/25/17 10/15/21 Rafaela Shultz MD [address] [place] [address] [email or web address] Historical LMR Provider 07/25/17 10/15/21 documented as of this encounter Additional Source Comments The information contained in this document represents components of the legal health record. It is not the complete legal health record.[facility]
--- OUTSIDE RECORDS SUMMARY | 2025-07-01 16:19 | XMS_ITS | Encounter Summary ---
Author Organization [facility] Address [address] [facility] [address] [place] [address] Phone Care Team Providers Care Hot Repairman Name Role Phone Hayden Wells MD Unavailable [email or web address] Emily George MD Unavailable [phone] MugPepe MD Unavailable [phone] [facility] Primary Care Provider + [phone] Encounter Details Date Type Department Care Team (Late st Contact Info) Description 02/08/2023 Procedure Pass [facility] - [address] [place] [address] Social History Tobacco Use Types Packs/Day Years Used Date Smoking Tobacco: Every Day Smokeless Tobacco: Never Education Answer Date Recorded Are you interested in more education? Not on elisa e 02/02/2023 Are you concerned about learning? Not on file 02/02/2023 No 02/02/2023 No 02/02/2023 Comments No Sex and Gender Information Value Date Recorded Sex Assigned at Not on file Legal Sex Female 9:52 PM EDT Gender Identity Not on file Sexual Orientation Not on file documented as of this encounter Plan of Treatment Upcoming Encounters Date Type Department Care Team (Late st Contact Info) Description 08/19/2025 10:00 AM EST Office Visit [facility] Rheumatology [address] [place] [address] Emily George MD [address] [facility], [address] [place] [address] [email or web address] 02/18/2026 3:00 PM EDT Office Visit [facility] [address] [address] Guera Banks [address] [facility], [address] [place] [address] [email or web address] documented as of this encounter Visit Diagnoses Not on filedocumented in this encounter Care Teams Hot Repairman Relationship Specialty Start Date End Date Pepe Adams MD [address] [place] [address] PCP - General Internal Medicine 07/31/17 Hayden Wells MD [email or web address] Historical LMR Provider 07/25/17 Emily George MD [address] [facility], [address] [place] [address] [email or web address] Historical LMR Provider 07/25/17 Pepe Adams MD [address] [place] [address] Historical LMR Provider 07/25/17 documented as of this encounter Additional Source Comments The information contained in this document represents components of the legal health record. It is not the complete legal health record.[facility]
--- OUTSIDE RECORDS SUMMARY | 2025-07-01 16:19 | XMS_ITS | Encounter Summary ---
Author Organization [facility] Address [address] [place] [address] [place] [address] Phone Care Team Providers Care Machine Etcher Name Role Phone Hayden Wells MD Unavailable [email or web address] Charly Gordon MD Unavailable Emily George MD Unavailable Juan Manuel Knox MD Unavailable Raquel Alicea NP Unavailable [phone] Rupinder Vicente MD Unavailable [facility] rom[facility] MD Unavailable [phone] Luis Lopez MD Unavailable [phone] Rafaela Shultz MD Unavailable [phone] Pepe Adams MD Primary Care Provider + [phone] Encounter Details Date Type Department Care Team (Late st Contact Info) Description 08/23/2018 Ancillary Orders Virtual Department [address] [place] [address] Pepe Adams MD [address] [place], [place] [id number] Breast screening Social History Tobacco Use Types [...] 08/19/2025 10:00 AM EST Office Visit [facility] Rheumatology [address] [place] [address] Emily George MD [address] [facility], [address] [place] [address] [email or web address] 02/18/2026 3:00 PM EDT Office Visit [facility] Family Medicine [address] [place] [address] Guera Banks [address] [facility], [address] [place] [address] [email or web address] documented as of this encounter Results * BI MAMMOGRAM SCREENING WITH TOMOSYNTHESIS WITH CAD (BILATERAL) (10/02/2018 10:56 AM EST) Anatomical Region Laterality Modality Breast Left, Breast Right, Breast Bilateral Bila teral Mammography 10/02/2018 2:14 PM EST Impressions 10/02/2018 2:16 PM EST No mammographic evidence of malignancy. Stable mammogram. RECOMMENDED FOLLOWUP: Routine screening mammography is recommended, as clinically appropriate. The results will be sent to the patient. BI-RADS CATEGORY: 2 - Benign finding. BREAST DENSITY: There are scattered fibroglandular densities. POS - CDHMAMA Narrative 10/02/2018 2:16 PM EST BI MAMMOGRAM SCREENING WITH TOMOSYNTHESIS WITH CAD (BILATERAL) HISTORY: Screening. COMPARISON: Prior studies dating back to 2011, most recently 08/27/2017. TECHNIQUE: Digital breast tomosynthesis was performed in CC and MLO projections. Reconstructed 2-D C-views generated from the tomosynthesis images. Images interpreted in conjunction with R-2 Image Clinical Team Manager computer-aided detection (CAD). FINDINGS: BREAST DENSITY: There are scattered fibroglandular densities. There are no suspicious masses, suspicious areas of architectural distortion or suspicious clusters of microcalcifications. Benign intramammary lymph node upper outer quadrant right breast has been stable for many years. Several scattered benign type calcifications are without significant change. Procedure Note Codi Moreira MD - 10/02/2018 BI MAMMOGRAM SCREENING WITH TOMOSYNTHESIS WITH CAD (BILATERAL) HISTORY: Screening. COMPARISON: Prior studies dating back to 2011, most recently 08/27/2017. TECHNIQUE: Digital breast tomosynthesis was performed in CC and MLOprojections. Reconstructed 2-D C-views generated from the tomosynthesisimages. Images interpreted in conjunction with R-2 Image Checkercomputer-aided detection (CAD). FINDINGS: BREAST DENSITY: There are scattered fibroglandular densities. There are no suspicious masses, suspicious areas of architecturaldistortion or suspicious clusters of microcalcifications. Benign intramammary lymph node upper outer quadrant right breast has beenstable for many years. Several scattered benign type calcifications arewithout significant change. IMPRESSION: No mammographic evidence of malignancy. Stable mammogram. RECOMMENDED FOLLOWUP: Routine screening mammography is recommended, asclinically appropriate. The results will be sent to the patient. BI-RADS CATEGORY: 2 - Benign finding. BREAST DENSITY: There are scattered fibroglandular densities. POS - CDHMAMA Pepe Adams MD IMG MG EXAMS Final Resu lt documented in this encounter Visit Diagnoses Diagnosis Breast screening Breast screening, unspecified Breast screening Breast screening, unspecified documented in this encounter Care Teams Machine Etcher Relationship Specialty Start Date End Date Pepe Adams MD [address] [place] [address] PCP - General Internal Medicine 07/31/17 Hayden Wells MD [email or web address] Historical LMR Provider 07/25/17 Charly Gordon MD [address] [place] [address], [address] [place] [address] Historical LMR Provider 07/25/17 10/15/21 Emily George MD [address] [place] [address], [address] [place] [address] Historical LMR Provider 07/25/17 Juan Manuel Knox MD [address] [place] [address], [address]nd [place] [address] Historical LMR Provider 07/25/17 10/15/21 Raquel lAicea NP [address] [place] [address] Historical LMR Provider 07/25/17 2 Rupinder Vicente MD [address] [place] [address], [address] [place] [address] Historical LMR Provider 07/25/17 10/15/21 Pepe Adams MD [address] [place] [address] Historical LMR Provider 07/25/17 Luis Lopez MD [address] [place] [address], [address] [place] [address] Historical LMR Provider 07/25/17 10/15/21 Rafaela Shultz MD [address] [place] [address] [email or web address] Historical LMR Provider 07/25/17 10/15/21 documented as of this encounter Additional Source Comments The information contained in this document represents components of the legal health record. It is not the complete legal health record.[facility]
--- OUTSIDE RECORDS SUMMARY | 2025-07-01 16:19 | XMS_ITS | Encounter Summary ---
Author Organization [facility] Address [address] [facility] [address] [place] [address] Phone Care Team Providers Care Wood Car Builder Name Role Phone Hayden Wells MD Unavailable [email or web address] Emily George MD Unavailable [phone] MugPepe MD Unavailable [phone] [facility] [place] [place] romano MD Primary Care Provider + [phone] Encounter Details Date Type Department Care Team (Late st Contact Info) Description 11/11/2024 Procedure Pass OR Admitting Dept - Virtual Department [address] [place], [place] [phone] Social History Tobacco Use Types Packs/Day Years [...] Description 08/19/2025 10:00 AM EST Office Visit [facility] Rheumatology [address] [place] [address] [place] [address] Emily George MD [address] [place] [address], [address] [place] [address] [email or web address] 02/18/2026 3:00 PM EDT Office Visit [facility] Family Medicine [address] [place] [address] Guera Banks [address] [place] [address], [address] [place] [address] [email or web address] documented as of this encounter Visit Diagnoses Not on filedocumented in this encounter Care Teams Wood Car Builder Relationship Specialty Start Date End Date Pepe Adams MD [address] [place] [address] PCP - General Internal Medicine 07/31/17 Hayden Wells MD [email or web address] Historical LMR Provider 07/25/17 Emily George MD [address] [place] [address], [address] [place] [address] Historical LMR Provider 07/25/17 Pepe Adams MD [address] [place] [address] Historical LMR Provider 07/25/17 documented as of this encounter Additional Source Comments The information contained in this document represents components of the legal health record. It is not the complete legal health record.[facility]
--- OUTSIDE RECORDS SUMMARY | 2025-07-01 16:19 | XMS_ITS | Encounter Summary ---
Author Organization [facility] Address [address] [place] [address] [place] [address] Phone Care Team Providers Care Log Washer Name Role Phone Hayden Wells MD Unavailable [email or web address] [email or web address] Charly Gordon MD Unavailable Emily George MD Unavailable [phone] Juan Manuel Knox MD Unavailable [phone] Raquel Alicea NP Unavailable [phone] Rupinder Vicente MD Unavailable Pepe Adams MD Unavailable [phone] Luis Lopez MD Unavailable [phone] Rafaela Shultz MD Unavailable [phone] Pepe Adams MD Primary Care Provider + [phone] Encounter Details Date Type Department Care Team (Late st Contact Info) Description 10/25/2017 Procedure Pass [facility], [address] [address] Social History Tobacco Use Types Packs/Day Years [...] Description 08/19/2025 10:00 AM EST Office Visit [facility] Rheumatology [address] [place] [address] [place] [address] Emily George MD [address] [place] [address], [address] [place] [address] [email or web address] 02/18/2026 3:00 PM EDT Office Visit [facility] Family Medicine [address] [place] [address] [place] [address] Guera Banks [address] [facility], [address] [place] [address] [email or web address] documented as of this encounter Visit Diagnoses Not on filedocumented in this encounter Care Teams Log Washer Relationship Specialty Start Date End Date DaniellaPepe MD [address] [place] [address] PCP - General Internal Medicine 07/31/17 Hayden Wells MD [email or web address] Historical LMR Provider 07/25/17 Charly Gordon MD [address] [place] [address], [address] [place] [address] Historical LMR Provider 07/25/17 10/15/21 Emily George MD [address] [place] [address], [address] [place] [address] Historical LMR Provider 07/25/17 Juan Manuel Knox MD [address] [place] [address], 2[address] [place] [address] Historical LMR Provider 07/25/17 10/15/21 Raquel Alicea NP [address] [place] [address] Historical LMR Provider 07/25/17 2 Rupinder Vicente MD [address] [place] [address] [email or web address] Historical LMR Provider 07/25/17 10/15/21 Pepe Adams MD [address] [place] [address] Historical LMR Provider 07/25/17 Luis Lopez MD [address] [place] [address] Historical LMR Provider 07/25/17 10/15/21 Rafaela Shultz MD [address] [place] [address] [email or web address] Historical LMR Provider 07/25/17 10/15/21 documented as of this encounter Additional Source Comments The information contained in this document represents components of the legal health record. It is not the complete legal health record.[facility]
--- OUTSIDE RECORDS SUMMARY | 2025-07-01 16:19 | XMS_ITS | Encounter Summary ---
Author Organization [facility] Address [address] [place] [address] [place] [address] Phone Care Team Providers Care Carpenter Assistant Name Role Phone Hayden Wells MD Unavailable [email or web address] Charly Gordon MD Unavailable Emily George MD Unavailable Juan Manuel Knox MD Unavailable [phone] Raquel Alicea NP Unavailable [phone] Rupinder Vicente MD Unavailable Pepe Adams MD Unavailable [phone] Luis Lopez MD Unavailable [phone] Rafaela Shultz MD Unavailable [phone] Pepe Adams MD Primary Care Provider + [phone] Encounter Details Date Type Department Care Team (Late st Contact Info) Description 09/06/2017 Ancillary Orders [address] [address] Juan Manuel Knox MD [address] [facility], 2nd [place] [address] [email or web address] Sacroiliitis, not elsewhere classified Social History Tobacco Use Types Packs/Day Years [...] Description 08/19/2025 10:00 AM EST Office Visit [facility] Rheumatology [address] [place] [address] [place] [address] Emily George MD [address] [place] [address], [address] [place] [address] [email or web address] 02/18/2026 3:00 PM EDT Office Visit [facility] Family Medicine [address] [place] [address] Guera Banks [address] [place] [address], [address] [place] [address] [email or web address] documented as of this encounter Visit Diagnoses Diagnosis Sacroiliitis, not elsewhere classified documented in this encounter Care Teams Carpenter Assistant Relationship Specialty Start Date End Date Pepe Adams MD [address] [place] [address] PCP - General Internal Medicine 07/31/17 Hayden Wells MD [email or web address] Historical LMR Provider 07/25/17 Charly Gordon MD [address] [place] [address], [address] [place] [address] Historical LMR Provider 07/25/17 10/15/21 Emily George MD [address] [place] [address], [address] [place] [address] Historical LMR Provider 07/25/17 Juan Manuel Knox MD [address] [facility], 2nd [place] [address] Historical LMR Provider 07/25/17 10/15/21 Raquel Alicea NP [address] [place] [address] Historical LMR Provider 07/25/17 2 Rupinder Vicente MD [address] [place] [address] [email or web address] Historical LMR Provider 07/25/17 10/15/21 Pepe Adams MD [address] [place] [address] Historical LMR Provider 07/25/17 Luis Lopez MD [address] [place] [address] [email or web address] Historical LMR Provider 07/25/17 10/15/21 Rafaela Shultz MD [address] [place] [address] [email or web address] Historical LMR Provider 07/25/17 10/15/21 documented as of this encounter Additional Source Comments The information contained in this document represents components of the legal health record. It is not the complete legal health record.[facility]
== END 2025-07-01 14:43 | disposition home or self-care (01) ==
LOC: HO.HMCSH 13:50
PROVIDERS: PCP Internal Medicine; Visit Provider Physician Assistant Medical
DX: F41.9 Anxiety disorder, unspecified (principal); F32.A Depression, unspecified; I10 Essential (primary) hypertension; Z78.0 Asymptomatic menopausal state; N80.9 Endometriosis, unspecified; Z23 Encounter for immunization

== ENCOUNTER → 2025-07-01 13:49 | Outpatient (BNVA) | payer OTHER, SELFPAY | PROVIDERS: PCP Internal Medicine; Visit Provider Physician Assistant Medical | DX: F41.9 Anxiety disorder, unspecified (principal); F32.A Depression, unspecified; I10 Essential (primary) hypertension; N80.9 Endometriosis, unspecified; Z78.0 Asymptomatic menopausal state; Z28.21 Immunization not carried out because of patient refusal; Z13.31 Encounter for screening for depression | CPT/HCPCS: 90471; 96127 ==

== ENCOUNTER 2025-08-06 10:25 | Outpatient (AMB) | payer OTHER, SELFPAY ==
--- NOTE | 2025-08-06 11:10 | A.OFFPSYCH_ITS ---
Intake Intake Visit Reasons: consultation Religious Education Director Required: No Allergies No Known Allergies Allergy (Verified 07/01/25 16:10) Medication List - Last Reconciled 08/06/25 by Ira Alcaraz APRN atorvastatin 40 mg PO DAILY cevimeline 1 cap PO BID PRN cyclobenzaprine 5 mg PO BEDTIME PRN estradiol 1 patch topical 2XW estradiol 0.01%(0.1mg/gram) 0.5 grams vaginal Q OTHER DAY etodolac 400 mg PO DAILY PRN fluoxetine 10 mg PO DAILY fluoxetine mg PO hydroxyzine HCl 50 mg PO BID levothyroxine (Synthroid) 100 mcg PO DAILY lorazepam 1 mg PO DAILY 30 days methenamine hippurate 1 g PO BID omeprazole 20 mg PO BID HPI- Psychiatric Chief Complaint: consultation HPI Narrative: pt referred by PCP for evaluation of anxiety and medication optimization. Pt had been on prozac 20-30mfg and ativan 1mg QID for approximately 20 yrs for treatment of anxiety and OCD. Meds were prescribed by her PCP who retired earlier this year. She started with new PCP who began taper of ativan. Pt was frightened that ativan was narcotic and caused dementia so she stopped cold turkey two months ago. She has been on 2 mg daily at the time. She has been uncomfortable, tremulous, anxious and sleepless since stopping. She does take the hydroxyzine but it does not help symptoms and does not help her sleep; she reports significant dry mouth and yes from medication. Her PHQ9=18 and her GAD7=18. She has chronic back pain from spinal stenosis. 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 She reports the job was very stressful as she does not drink and she had to interact with many customers constantly some of whom would get veery intoxicated. She has not worked outside the home since; She has been for 39 years and raised 2 daughters. She also helped raise 4 grandchildren. Her still works and she is isolated . she has few social connections. is very supportive Sh e denies SI or HI Past Psychiatric History: outpt medication therapy from PCP; No IPLOC Subjective Subjective Subjective Medication Compliance: Yes Side effects from medications: No Review of Systems Medical Review of Systems: unchanged Mental Status Exam Mental Status Exam Patient Appearance: Well Grooomed, Fatigued and Appropriate Patient Orientation: Person, Place, Time and Situation Level of Consciousness: Awake, Appropriate and Alert Patient Behavior: Appropriate, Talkative, Restless, Anxious and Good Eye Contact Mood Description: Anxious, Sad and Nervous Affect Description: Anxious, Sad and Nervous Patient Cognition Impaired: No Ability to Follow Directions: Good Speech Pattern: Clear and Appropriate Memory Description: Intact Hallucinations: None Delusions: Not Present Thought Process: Intact and Rumination Thought Content: positive for Intact, positive for Obsessional Thoughts (worries) and positive for Preoccupation Depressive Symptoms: Increased Anxiety, Difficulty Sleeping and Difficulty Concentrating Judgement: Good Assessment and Plan Assessment & Plan (1) OCD (obsessive compulsive disorder): Status: Acute Qualifiers: Obsessive-compulsive disorder type: mixed obsessional thoughts and acts Qualified Code(s): F42.2 - Mixed obsessional thoughts and acts Code(s): F42.9 - Obsessive-compulsive disorder, unspecified (2) Insomnia disorder, with non-sleep disorder mental comorbidity: Status: Acute Code(s): G47.00 - Insomnia, unspecified Plan education re: ativan and ativan withdrawal done in session; explained to patient that ativan is not a narcotic but a controlled substance and in the class of benzodiazepams. Benzodiazepams work on the dillan receptors which are associated with calming in the central nervous system. There has been some research that shows an association between benzodiazepams and dementia but no research shows it is causative. Benzodiazepams can cause dependence and tolerance and need to be tapered. Stopping cold turkey can be dangerous and uncomfortable. Because she has been off the ativan for a month, I do not recommend restarting at this time however she needs some help to limit the protracted withdrawal symptoms and returning anxiet and even possibly rebound anxiety. She is experiencing dry eyes and dry mouth with the hydroxyzine so I have recommended that she limit its use to severe anxiety only. Discussed anticholinergic drugs such as antihistamines have been known to cause or hasten dementia. We discussed increasing the prozac to 40mg daily and starting low dose lamictal 12.5mg bid for anxiety and to limit withdrawal discomfort of ativan. Start trazodone 25mg at bedtime and if too sedating in am reduce to 12.5mg (/ tab). also recommend starting magnesium glycinate 100-200mg at bedtime for sleep. Medications: New fluoxetine 40 mg (2 x 20 mg) PO DAILY 180 caps 0RF trazodone 25 mg (1/2 x 50 mg) PO BEDTIME PRN 45 tabs 1RF sleep Discontinued fluoxetine Discontinued Reason: Doctor's Order 10 mg PO DAILY 90 caps 3RF Counseling and coordination of Care Pt. Self Management counseling: Maintenance-social rhythm, Mod caffeine/ETOH intake, Nutrition education and improvement, Sleep hygiene and Problem solving Medication management counseling: Effectiveness, Side effects, Dosing range, Duration and Drug interaction Diagnosis and Prognosis Counseling: Accuracy of diagnosis, Prognosis over time, Impact of diagnosis on life functions, Impact of family relationship, Problematic behaviors secondary to diagnosis and Adequacy of current interventions Details: I spent 90 minutes reviewing the record, seeing the patient and documenting in the medical record. Counseling provided to the patient/caregiver as outlined below. Addressed patient/caregiver concerns regarding current medication regime including effective adherence. Addressed patient/caregiver concerns regarding diagnosis and prognosis including accuracy of diagnosis, prognosis over time, impact of diagnosis. Addressed patient/caregiver concerns regarding impact of recent stressors. [facility] Medical History (Updated 08/06/25 @ 11:45 by Ira Alcaraz APRN) Endometriosis Menopause Hypertension Elevated blood pressure reading Hypothyroidism GERD (gastroesophageal reflux disease) Recurrent UTI Hyperlipidemia Anxiety and depression OCD (obsessive compulsive disorder) Establishing care with new doctor, encounter for Family History Father Diabetes Cancer Multiple myeloma Mother BP (high blood pressure) Ovarian cancer Social History Housing: House Alcohol intake: current Alcohol intake frequency: does not drink Patient Tobacco Use Status: Current everyday Tobacco user Cigarette Packs Per Day: 1 Cigarettes Per Day: 20 service: No Current occupational status: unemployed Cognitive needs: No Hearing needs: No Vision needs: Yes (rx glasses) Social History: lives with of 39 yrs; has 2 adult daughter and 4 grandchildren who are young adults. Worked as sweeping compound blender until 2006 Substance History: none Trauma History: unknown Coding Level of Care Code Psych Diag Eval w/Med (45765) Diagnoses Mixed obsessional thoughts and acts F42.2 Obsessive-compulsive disorder type: mixed obsessional thoughts and acts Insomnia disorder, with non-sleep disorder mental comorbidity G47.00
--- OUTSIDE RECORDS SUMMARY | 2025-08-06 12:37 | XMS_ITS | Encounter Summary ---
Author Organization [facility] Address [address] [place] [phone] Care Team Providers Care Patient Intake Coordinator Name Role Phone Physician, Pcp Unknown Primary Care Provider Mary vailable Encounter Details Date Type Department Care Team (Late st Contact Info) Description 03/17/2025 Lab Requisition [facility] - Main Lab [address] [facility] [place] [address] London Perez MD [address] [facility] [address] [place] [phone] Dysuria Social History Tobacco Use Types Packs/Day Years [...] Comments BACTERIAL IDENTIFICATION AND SUSCEPTIBILITY, AEROBIC Routine 03/16/2025 12:00 AM EDT Dysuria documented in this encounter Results * Bacterial identification and susceptibility, aerobic (03/16/2025 12:00 AM EDT) Culture, Bacterial ID and Sensitivity Mixed urogenital marisa, no uropathogens present. Suggest repeat specimen, if clinically indicated. 03/18/2025 9:27 AM EDT [facility] Other Urine specimen from urethra / Unknown 03/16/2025 03/17/2025 10:26 AM EDT us London Perez MD LAB MICROBIOLOGY - GENERAL ORDER MIGUEL Final Result [facility] [place] ([facility] HOSPITAL LAB [address] [place] [address], documented in this encounter Visit Diagnoses Diagnosis Dysuria documented in this encounter Care Teams Patient Intake Coordinator Relationship Specialty Start Date End Date Physician, Pcp Unknown PCP - General 09/10/24 documented as of this encounter
--- OUTSIDE RECORDS SUMMARY | 2025-08-06 12:37 | XMS_ITS | Clinical Summary ---
Author Organization [facility] Address [address] [place] [address] Phone Care Team Providers Care Concrete Mixer Operator Name Role Phone Malena Adams MD Primary [...] most recent BMD from October 2019 at [facility] there is osteopenia not significantly [...] Insurance Aetna Commercial A[employer] Commercial Care Teams Concrete Mixer Operator Relationship Specialty Start Date End Date Malena Adams MD [address] [place] [address] PCP - General Internal Medicine 04/23/24
--- OUTSIDE RECORDS SUMMARY | 2025-08-06 12:37 | XMS_ITS | Clinical Summary ---
Author Organization [address] Address [address] [place] [address] Phone Care Team Providers Care Production Machine Computer Operator Name Role Phone Physician, Pcp Unknown Primary Care Provider Mary vailable Encounters Date Type Department Care Team Description 07/31/2025 Lab Requisition [facility] [address] [place] [address] Mitch Motley PA Pyuria 07/24/2025 Lab Requisition [facility] [address] [place] [address] Jak Mcgrath MD Urinary tract infection, site not specified from Last 3 Months Social History Tobacco Use Types Packs/Day Years Used Date Smoking Tobacco: Never Assessed Comments Unknown Sex and Gender Information Value Date Recorded Sex Assigned at Not on file Legal Sex Female 10:17 AM EST Gender Identity Not on file Sexual Orientation Not on file Plan of Treatment Health Maintenance Due Date Last Done Comments Breast Cancer Screening 1960 Colorectal Cancer Screening: Colonoscopy 1960 DTaP,Tdap,and Td Vaccines (1 - Tdap) 1977 Pneumococcal Vaccine: 50+ Ye ars (1 of 1 - PCV) 01/22/2008 Zoster Vaccines (1 of 2) 01/22/2008 Falls Risk Assessment 09/10/2024 Hepatitis C Screening 09/10/2024 Osteoporosis Screening (Bone Density Screening) 09/10/2024 Social Influencers of Health Screening 09/10/2024 Depression Screening 10/08/2024 COVID-19 Vaccine (1 - 2023-2 5 season) 2025 Influenza Vaccine (#1) 2025 RSV Immunization Adult Patie nts (1 - 1-dose 75+ series) 2033 HIB Vaccines Aged Out No longer eligi ble based on patient's age to complete this topic HPV Vaccines Aged Out No longer eligi ble based on patient's age to complete this topic Hepatitis A Vaccines Aged Out No long er eligible based on patient's age to complete this topic Hepatitis B Vaccines Aged Out No long er eligible based on patient's age to complete this topic IPV Vaccines Aged Out No longer eligi ble based on patient's age to complete this topic MMR Vaccines Aged Out No longer eligi ble based on patient's age to complete this topic Meningococcal ACWY Vaccine Aged Out N o longer eligible based on patient's age to complete this topic Meningococcal B Vaccine Aged Out No l onger eligible based on patient's age to complete this topic RSV Immunization Patients Un lacey 20 months Aged Out No longer eligible b ased on patient's age to complete this topic Varicella Vaccines Aged Out No longer eligible based on patient's age to complete this topic Procedures Procedure Name Priority Date/Time Associated Diagnosis Comments CULTURE URINE Routine 07/31/2025 12:00 AM EDT Pyuria CULTURE URINE Routine 07/24/2025 12:00 AM EDT Urinary tract infection, site not specified from Last 3 Months Results * (ABNORMAL) Culture urine (07/31/2025 12:00 AM EDT) Only the most recent of2 resultswithin the time period is included. Culture, Urine >=100,000 CFU/mL Klebsiella pneumoniae ssp pneumoniae(A) MIRNA 08/02/2025 8:10 AM EDT [facility] Comment: This is an edited result. Previous organism was Gram negative bacilli on 08/01/2025 at 0741 EDT. Urine Urine specimen from urinary conduit / Unknown 07/31/2025 07/31/2025 7:35 PM EDT Narrative Organism Antibiotic Method Susceptibility Klebsiella pneumoniae ssp pneumoniae Amoxicillin/Clavulanate MIRNA <=2 ug/ml: Susceptible Klebsiella pneumoniae ssp pneumoniae Ampicillin/Sulbactam MIRNA 4 ug/ml: Susceptible Klebsiella pneumoniae ssp pneumoniae Piperacillin/Tazobactam MIRNA <=4 ug/ml: Susceptible Klebsiella pneumoniae ssp pneumoniae Cefazolin (Urine) MIRNA 2 ug/ml: Susceptible Klebsiella pneumoniae ssp pneumoniae Cefoxitin MIRNA <=4 ug/ml: Susceptible Klebsiella pneumoniae ssp pneumoniae Ceftazidime MIRNA <=0.5 ug/ml: Susceptible Klebsiella pneumoniae ssp pneumoniae Ceftriaxone MIRNA <=0.25 ug/ml: Susceptible Klebsiella pneumoniae ssp pneumoniae Cefepime MIRNA <=0.12 ug/ml: Susceptible Klebsiella pneumoniae ssp pneumoniae Meropenem MIRNA <=0.25 ug/ml: Susceptible Klebsiella pneumoniae ssp pneumoniae Amikacin MIRNA <=1 ug/ml: Susceptible Klebsiella pneumoniae ssp pneumoniae Gentamicin MIRNA <=1 ug/ml: Susceptible Klebsiella pneumoniae ssp pneumoniae Ciprofloxacin MIRNA 0.5 ug/ml: Intermediate Klebsiella pneumoniae ssp pneumoniae Levofloxacin MIRNA 0.5 ug/ml: Susceptible Klebsiella pneumoniae ssp pneumoniae Nitrofurantoin MIRNA 128 ug/ml: Resistant Klebsiella pneumoniae ssp pneumoniae Trimethoprim/Sulfamethoxazo le MIRNA <=20 ug/ml: Susceptible Mitch [facility] MICROBIOLOGY - GENERAL ORDER MIGUEL Final Result [facility] [address] [place] [address], from Last 3 [place] [address] AETNA Care Teams Production Machine Computer Operator Relationship Specialty Start Date End Date Physician, Pcp Unknown PCP - General 09/10/24
--- OUTSIDE RECORDS SUMMARY | 2025-08-06 12:38 | XMS_ITS | Clinical Summary ---
Author Organization [facility] Address [address] [place] [address] Phone Care Team Providers Care Land Surveyor Assistant Name Role Phone Hayden Wells MD Unavailable [email or web address] Emily George MD Unavailable [phone] Mugg, Malena Abraham MD Unavailable [phone] Mugg, Malena Abraham MD Primary Care Provider [phone] Allergies No known active allergies Medications LORazepam [...] (RETIN-A) 0.1 % cream Apply topically daily. 11/13/19 23 Active phenazopyridine (PYRIDIUM) 200 MG tablet Take 1 tablet (200 mg total) by mouth 3 (three) times a day as needed for pain (specific location in comments). 10 tablet 10/06/20 24 Active estradioL (ESTRACE) 0.01 % (0.1 mg/gram) vaginal cream Place 2 g vaginally daily. Apply fingertip with amount to vaginal area every other day 2 g 1 11/11/19 25 Active methenamine (HIPREX) 1 gram tablet TAKE 1 TABLET BY MOUTH TWICE A DAY TAKE WITH VIT C 12/12/19 25 Active cyanocobalamin, vitamin B-12, (VITAMIN B-12 ORAL) Take by mouth. Active cholecalciferol (VITAMIN D3) 2,000 unit tablet Take 2,000 Units by mouth daily. 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 8 patch 2 06/01/20 25 Active cyclobenzaprine (FLEXERIL) 5 MG tabletIndicatio ns:Lumbar facet arthropathy TAKE 1 TABLET (5 MG TOTAL) BY MOUTH NIGHTLY AT BEDTIME NEEDED (MUSCLE SPASM). 90 tablet 07/27/20 25 Active cyclobenzaprine (FLEXERIL) 5 MG tabletIndicatio ns:Lumbar facet arthropathy TAKE 1 TABLET (5 MG TOTAL) BY MOUTH NIGHTLY AT BEDTIME NEEDED (MUSCLE SPASM). 90 tablet 03/04/20 25 025 Discontinued Active Problems Problem Noted Date Diagnosed Date [...] immunologic tests all returned negative including Alicea, MOBILE WEB APPLICATION DEVELOPER, SSA, SSB and dsDNA antibodies I previously [...] let me know the name of her relay record clerk to write letter asking about possible contraindications [...] immunologic tests all returned negative including Alicea, MOBILE WEB APPLICATION DEVELOPER, SSA, SSB and dsDNA antibodies I previously [...] let me know the name of her relay record clerk to write letter asking about possible contraindications [...] let me know the name of her relay record clerk to write letter asking about possible contraindications [...] let me know the name of her relay record clerk to write letter asking about possible contraindications [...] let me know the name of her relay record clerk to write letter asking about possible contraindications [...] let me know the name of her relay record clerk to write letter asking about possible contraindications [...] let me know the name of her relay record clerk to write letter asking about possible contraindications [...] to most recent BMD from 06/18/[address] [facility] there is osteopenia particularly within R femoral neck not significantly changed comparing to prior study from 2017 and 2020. Continue fall and fracture prevention strategies. Proper calcium and vitamin D supplementation and daily weightbearing exercises. Assessment & Plan (08/04/2024 11:09 AM EDT): According to most recent BMD from October [address] [facility] there is osteopenia not significantly changed comparing to prior study from 2017. Continue fall and fracture prevention strategies. Proper calcium and vitamin D supplementation and daily weightbearing exercises. Assessment & Plan (02/04/2024 2:04 PM EDT): According to most recent BMD from October [address] [facility] there is osteopenia not significantly changed comparing to prior study from 2017. Continue fall and fracture prevention strategies. Proper calcium and vitamin D supplementation and daily weightbearing exercises. Assessment & Plan (12/21/2021 10:55 AM EDT): According to most recent BMD from October [address] [facility] there is osteopenia not significantly changed comparing to prior study from 2017. Continue fall and fracture prevention strategies. Proper calcium and vitamin D supplementation and daily weightbearing exercises. Assessment & Plan (09/15/2021 8:59 PM EST): According to most recent BMD from October [address] [facility] there is osteopenia not significantly [...] hospital encounter of 11/03/19 (from the past 61927 hour(s)) DXA Monitoring Addendum: 12/22/2019 This is [...] hospital encounter of 11/03/19 (from the past 33216 hour(s)) DXA Monitoring Narrative This is a [...] drafts. Use OTC eyedrops as needed. See relay record clerk at least every 12 months or earlier [...] tears and having regular visits to the relay record clerk and if absolutely necessary a trial of [...] of this 28-minute visit was spent in [id number] conversation with the patient going over the [...] Encounters Date Type Department Care Team Description 07/26/2025 Refill [facility] Rheumatology [address] [place] [address] Emily George MD Medication Refill 06/18/2025 11:54 AM EDT - 06/18/2025 11:59 PM EDT Hospital Encounter [facility] Laboratory [address] [place] [address] London Perez MD Discharge Disposition: Home or Self Care 06/18/2025 Transcribe Orders [facility] Laboratory [address] [place] [address] [address] [place] [address] London Perez MD Dysuria (Primary Dx) 05/29/2025 11:58 AM EDT - 05/29/2025 11:59 PM EDT Hospital Encounter [facility] Laboratory [address] [place] [address] London Perez MD Discharge Disposition: Home or Self Care 05/29/2025 Refill [facility] Rheumatology [address] [place] [address] [address] [place] [address] Emily George MD Med Change Request 05/28/2025 Refill [facility] Rheumatology [address] [place] [address] Emily George MD Med Change Request from [...] Description 08/19/2025 10:00 AM EST Office Visit [facility] Rheumatology [address] [place] [address] [place] [address] Emily George MD [address] [facility], [address] [place] [address] [email or web address] 02/18/2026 3:00 PM EDT Office Visit [facility] [address] [place] [address] [place] [address] Guera Banks [address] [place] [address], [address] [place] [address] [email or web address] Health Maintenance Due Date Last Done [...] 08/26/2021, 08/08, 08/07/2018 INFLUENZA VACCINE (#1) 2025 , 06/23/2022, 10/17/2021, Additional history exists COVID-19 VACCINE ( - season) 2025 BLOOD PRESSURE 08/16/2025 02/13/2025 MAMMOGRAM 07/25/2026 07/25/2024, 07/0 12/2022, 04/05/2022, Additional history exists RSV VACCINE (1 [...] Special Requests None 06/18/2025 12:11 PM EDT [facility] Urine Culture 10,000 to 100,000 colony forming units per mL KLEBSIELLA PNEUMONIAE(A) 06/20/2025 10:40 AM EDT [facility] Urine (Urine) 06/18/2025 12: 11 PM [...] pneumoniae Cefazolin(urine) MIRNA METHOD 4: Susceptible Comment: London Perez MD MICROBIOLOGY - GENERAL ORDERABL ES Final Result [address] [address] * (ABNORMAL) Urinalysis w/reflex Urine Culture (05/29/2025 12:05 PM EDT) COLOR Yellow Yellow [facility] CLARITY Clear [facility] GLUCOSE Negative Negative [facility] BILI 2+(A) Negative [facility] KETONES Negative Negative [facility] SPECIFIC GRAVITY 1.015 1.005 - 1.030 [facility] BLOOD Negative Negative [facility] PH 6.5 5.0 - 8.0 [facility] Protein-UA 1+(A) Negative [facility] NITRITE Negative Negative [facility] Leukocyte esterase, ur Trace(A) Negative [facility] Urine (Urine) 05/29/2025 12: 05 PM EDT 05/29/2025 12:07 PM EDT London Peerz MD URINE ORDERABLES Final Result Performing Organization Address City/[facility]/ZIP Co de Phone Number [address] [address] * (ABNORMAL) Urine sediment (05/29/2025 12:05 PM EDT) WBC 50-100(A) NONE SEEN /hpf [facility] RBC 0-2(A) NONE SEEN /hpf [facility] URINE EPITHELIAL 5-10(A) NONE SEEN [facility] MUCUS NONE SEEN NONE SEEN /hpf [facility] BACTERIA Trace(A) NONE SEEN /hpf [facility] 05/29/2025 12:0 5 PM EDT 05/29/2025 12:07 PM EDT London Perez MD URINE ORDERABLES Final Result [facility] [address] [place] [address] * BI MAMMOGRAM SCREENING WITH TOMOSYNTHESIS WITH [...] PM EDT Referred By: MALENA ADAMS Scanner: Holo[employer]upil A with serial# of [id number] located at [facility] Bone Density Scan (DXA) 06/18/24 Details of [...] -2.5), or Osteoporosis (T-score <= -2.5). At [facility], T-scores are compared to peak bone density [...] - 06/18/2024 Referred By: MALENA ADAMS Scanner: [employer] A with serial# of [id number] located at [facility] Bone Density Scan (DXA) 06/18/24 Details [...] -2.5), or Osteoporosis (T-score <= -2.5). At [facility], T-scores are compared to peak bone density [...] EST) TSH 1.12 0.27 - 4.20 uIU/mL [facility] Blood 08/26/2021 12:4 7 PM EST 08/26/2021 12:49 PM EST us Emily George MD LAB BLOOD ORDERABLES Fin al Result [address] [id number] * Hepatitis C antibody, qualitative (08/07/2018 12:29 PM EDT) HCV Negative Negative [facility] Comment: This is a screening test and should be confirmed with molecular testing Blood 08/07/2018 12:2 9 PM EDT 08/07/2018 12:32 PM EDT us Hayden Wells MD LAB BLOOD ORDERABLES Final Result [facility] [address] [place] [address] from Last 3 Months or Most Recently Relevant to Health Maintenance Insurance AETNA HMO POS EPO AETNA HMO POS EPO AETNA HMO POS EPO [facility] POS EPO AENA O POS EPO AETNA O POS EPO AETNA O POS EPO AETNA O POS EPO AETNA O POS EPO Care Teams Land Surveyor Assistant Relationship Specialty Start Date End Date Malena Adams MD [address] [place] [address] PCP - General Internal Medicine 07/31/17 Hayden Wells MD [email or web address] Historical LMR Provider 07/25/17 Emily George MD [address] [place] [address], [facility] [address] [place] [address] [email or web address] Historical LMR Provider 07/25/17 Malena Adams MD [address] [place] [address] Historical LMR Provider 07/25/17 Additional Source Comments The information contained in this document represents components of the legal health record. It is not the complete legal health record.[facility]
--- OUTSIDE RECORDS SUMMARY | 2025-08-06 12:38 | XMS_ITS | Encounter Summary ---
Author Organization [facility] Address [address] [place] [address] [place] [address] Phone Care Team Providers Care C Web Developer Name Role Phone Hayden Wells MD Unavailable [email or web address] Charly Gordon MD Unavailable Emily George MD Unavailable Juan Manuel Knox MD Unavailable Raquel Alicea NP Unavailable Rupinder Vicente MD Unavailable [facility] romano MD Unavailable [phone] Luis Lopez MD Unavailable [phone] Rafaela Shultz MD Unavailable [phone] Pepe Adams MD Primary Care Provider + [phone] Encounter Details Date Type Department Care Team (Late st Contact Info) Description 08/26/2019 Ancillary Orders Virtual Department [address] [place] [address] Pepe Adams MD [address] [place], [place] [id number] Breast cancer screening by mammogram Social History [...] Description 08/19/2025 10:00 AM EST Office Visit [facility] Rheumatology [address] [place] [address] Emily George MD 22 [facility], [address] [place] [address] [email or web address] 02/18/2026 3:00 PM EDT Office Visit [facility] [address] [place] [address] Guera Banks 22 [facility], [address] [place] [address] [email or web address] documented as of this encounter [...] DENSITY: There are scattered fibroglandular densities. POS -[id number] Narrative 11/03/2019 10:42 AM EST Bilateral full-field [...] DENSITY: There are scattered fibroglandular densities. POS -[id number] Pepe Adams MD IMG MG EXAMS Final Resu lt documented in this encounter Visit Diagnoses Diagnosis Breast cancer screening by mammogram Breast cancer screening by mammogram documented in this encounter Care Teams C Web Developer Relationship Specialty Start Date End Date Pepe Adams MD [address] [place] [address] PCP - General Internal Medicine 07/31/17 Hayden Wells MD [email or web address] Historical LMR Provider 07/25/17 Charly Gordon MD [address] [place] [address], [address] [place] [address] [email or web address] Historical LMR Provider 07/25/17 10/15/21 Emily George MD [address] [place] [address], [address] [place] [address] Historical LMR Provider 07/25/17 Juan Manuel Knox MD [address] [place] [address], [address] [place] [address] Historical LMR Provider 07/25/17 10/15/21 Raquel Alicea NP [address] [place] [address] Historical LMR Provider 07/25/17 2 Rupinder Vicente MD [address] [place] [address] [email or web address] Historical LMR Provider 07/25/17 10/15/21 Pepe Adams MD [address] [place] [address] Historical LMR Provider 07/25/17 Luis Lopez MD [address] [place] [address] Historical LMR Provider 07/25/17 10/15/21 Rafaela Shultz MD [address] [place] [address] [email or web address] Historical LMR Provider 07/25/17 10/15/21 documented as of this encounter Additional Source Comments The information contained in this document represents components of the legal health record. It is not the complete legal health record.[facility]
--- OUTSIDE RECORDS SUMMARY | 2025-08-06 12:38 | XMS_ITS | Encounter Summary ---
Author Organization [facility] Address [address] [facility] [address] [place] [address] Phone Care Team Providers Care Canceling And Cutting Control Clerk Name Role Phone Hayden Wells MD Unavailable [email or web address] Emily George MD Unavailable [phone] Mugg, Pepe Abraham MD Unavailable [phone] Mugg, Pepe Abraham MD Primary Care Provider + [phone] Encounter Details Date Type Department Care Team (Latest Contact Info) Description 12/21/2021 Transcribe Orders Virtual Department [address] [place] [address] Emily George MD [address] [place] [address] [email or web address] Breast screening (Primary Dx) Social History [...] Description 08/19/2025 10:00 AM EST Office Visit [facility] Rheumatology [address] [place] [address] Emily George MD [address] [place] [address], [address] [address] [email or web address] 02/18/2026 3:00 PM EDT Office Visit [facility] [address] [place] [address] Guera Banks 22 [facility], [address] [place] [address] [email or web address] documented as of this encounter [...] unspecified documented in this encounter Care Teams Canceling And Cutting Control Clerk Relationship Specialty Start Date End Date Pepe Adams MD [address] [place] [address] PCP - General Internal Medicine 07/31/17 Hayden Wells MD [email or web address] Historical LMR Provider 07/25/17 Emily George MD [address] [place] [address], [address] [place] [address] [email or web address] Historical LMR Provider 07/25/17 Pepe Adams MD [address] [place] [address] Historical LMR Provider 07/25/17 documented as of this encounter Additional Source Comments The information contained in this document represents components of the legal health record. It is not the complete legal health record.[facility]
--- OUTSIDE RECORDS SUMMARY | 2025-08-06 12:38 | XMS_ITS | Encounter Summary ---
Author Organization [facility] Address [address] [place] [address] [place] [address] Phone Care Team Providers Care Office Messenger Helper Name Role Phone Hayden Wells MD Unavailable [email or web address] Emily George MD Unavailable [phone] MugPepe MD Unavailable [phone] [facility] City[facility] MD Primary Care Provider + [phone] Encounter Details Date Type Department Care Team (Late st Contact Info) Description 12/21/2021 Procedure Pass [address] [address] Social History Tobacco Use Types Packs/Day Years [...] Description 08/19/2025 10:00 AM EST Office Visit [facility] Rheumatology [address] [place] [address] [place] [address] Emily George MD 22 [facility], [address] [place] [address] [email or web address] 02/18/2026 3:00 PM EDT Office Visit [address] [place] [address] Guera Banks 22 [facility], [address] [place] [address] [email or web address] documented as of this encounter Visit Diagnoses Not on filedocumented in this encounter Care Teams Office Messenger Helper Relationship Specialty Start Date End Date Pepe Adams MD [address] [place] [address] PCP - General Internal Medicine 07/31/17 Hayden Wells MD [email or web address] Historical LMR Provider 07/25/17 Emily George MD 22 [facility], [address] [place] [address] [email or web address] Historical LMR Provider 07/25/17 Pepe Adams MD [address] [place] [address] Historical LMR Provider 07/25/17 documented as of this encounter Additional Source Comments The information contained in this document represents components of the legal health record. It is not the complete legal health record.[facility]
--- OUTSIDE RECORDS SUMMARY | 2025-08-06 12:38 | XMS_ITS | Encounter Summary ---
Author Organization [facility] Address [address] [place] [address] [place] [address] Phone Care Team Providers Care Steamblaster Name Role Phone Hayden Wells MD Unavailable [email or web address] [email or web address] Charly Gordon MD Unavailable Emily George MD Unavailable [phone] Juan Manuel Knox MD Unavailable [phone] Raquel Alicea NP Unavailable [phone] Rupinder Vicente MD Unavailable Pepe Adams MD Unavailable [phone] Luis Lopez MD Unavailable [phone] Rafaela Shultz MD Unavailable [phone] Pepe Adams MD Primary Care Provider + [phone] Encounter Details Date Type Department Care Team (Late st Contact Info) Description 10/26/2020 Procedure Pass [facility] - [address] [place] [address] Social History Tobacco Use Types Packs/Day Years [...] Description 08/19/2025 10:00 AM EST Office Visit [facility]umatology [address] [place] [address] [place] [address] Emily George MD [address] [place] [address], [address] [place] [address] [email or web address] 02/18/2026 3:00 PM EDT Office Visit [facility] Family Medicine [address] [place] [address] [place] [address] Guera Banks [address] [place] [address], [address] [place] [address] [email or web address] documented as of this encounter Visit Diagnoses Not on filedocumented in this encounter Care Teams Steamblaster Relationship Specialty Start Date End Date [facility] [address] [place] [address] PCP - General Internal Medicine 07/31/17 Hayden Wells MD [email or web address] Historical LMR Provider 07/25/17 Charly Gordon MD [address] [place] [address], [address] [place] [address] Historical LMR Provider 07/25/17 10/15/21 Emily George MD [address] [place] [address], [address] [place] [address] Historical LMR Provider 07/25/17 Juan Manuel Knox MD [address] [place] [address], 2nd [place] [address] Historical LMR Provider 07/25/17 10/15/21 Raquel Alicea NP [address] [place] [address] Historical LMR Provider 07/25/17 2 Rupinder Vicente MD [address] [place] [address] [email or web address] Historical LMR Provider 07/25/17 10/15/21 Pepe Adams MD [address] [place] [address] Historical LMR Provider 07/25/17 Luis Lopez MD [address] [place] [address] [email or web address] Historical LMR Provider 07/25/17 10/15/21 Rafaela Shultz MD [address] [place] [address] [email or web address] Historical LMR Provider 07/25/17 10/15/21 documented as of this encounter Additional Source Comments The information contained in this document represents components of the legal health record. It is not the complete legal health record.[facility]
--- OUTSIDE RECORDS SUMMARY | 2025-08-06 12:38 | XMS_ITS | Encounter Summary ---
Author Organization [facility] Address [address] [place] [address] [place] [address] Phone Care Team Providers Care Day Care Provider Name Role Phone Hayden Wells MD Unavailable [email or web address] [email or web address] Charly Gordon MD Unavailable Emily George MD Unavailable [phone] Juan Manuel Knox MD Unavailable Raquel Alicea NP Unavailable [phone] Rupinder Vicente MD Unavailable Pepe Adams MD Unavailable [phone] Luis Lopez MD Unavailable [phone] Rafaela Shultz MD Unavailable [phone] Pepe Adams MD Primary Care Provider + [phone] Encounter Details Date Type Department Care Team (Late st Contact Info) Description 07/31/2017 Ancillary Orders [facility] [address] [place] [address] Rupinder Vicente MD [address] [facility], [address] [place], [place] [id number] [email or web address] Breast screening Social History Tobacco Use Types [...] Description 08/19/2025 10:00 AM EST Office Visit [facility] Rheumatology [address] [place] [address] Emily George MD [address] [facility], [address] [place] [address] [email or web address] 02/18/2026 3:00 PM EDT Office Visit [facility] Family Medicine [address] [place] [address] Guera Banks [address] [facility], [address] [place] [address] [email or web address] documented as of this encounter [...] and compared with multiple prior studies, most ekwtwgzl35/01/2016, with utilization of computer-aided detection. The breasts [...] scattered fibroglandular densities. POS - [id number] Rupinder Vicnete MD IMG MG EXAMS Final Result documented in this encounter Visit Diagnoses Diagnosis Breast screening Breast screening, unspecified Breast screening Breast screening, unspecified documented in this encounter Care Teams Day Care Provider Relationship Specialty Start Date End Date DaniellaPepe MD [address] [place] [address] PCP - General Internal Medicine 07/31/17 Hayden Wells MD [email or web address] Historical LMR Provider 07/25/17 Charly Gordon MD [address] [place] [address], [address] [place] [address] Historical LMR Provider 07/25/17 10/15/21 Emily George MD [address] [place] [address], [address] [place] [address] Historical LMR Provider 07/25/17 Juan Manuel Knox MD [address] [place] [address], 2nd [place] [address] Historical LMR Provider 07/25/17 10/15/21 Raquel Alicea NP [address] [place] [address] Historical LMR Provider 07/25/17 2 Rupinder Vicente MD [address] [place] [address] Historical LMR Provider 07/25/17 10/15/21 Pepe Adams MD [address] [place] [address] Historical LMR Provider 07/25/17 Luis Lopez MD [address] [place] [address] Historical LMR Provider 07/25/17 10/15/21 Rafaela Shultz MD [address] [place] [address] [email or web address] Historical LMR Provider 07/25/17 10/15/21 documented as of this encounter Additional Source Comments The information contained in this document represents components of the legal health record. It is not the complete legal health record.[facility]
--- OUTSIDE RECORDS SUMMARY | 2025-08-06 12:38 | XMS_ITS | Encounter Summary ---
Author Organization [facility] Address [address] [place] [address] [place] [address] Phone Care Team Providers Care Dean Of Instruction Name Role Phone Hayden Wells MD Unavailable [email or web address] [email or web address] Charly Gordon MD Unavailable Emily George MD Unavailable [phone] Juan Manuel Knox MD Unavailable [phone] Raquel Alicea NP Unavailable [phone] Rupinder Vicente MD Unavailable Pepe Adams MD Unavailable [phone] Luis Lopez MD Unavailable [phone] Rafaela Shultz MD Unavailable [phone] [facility] Primary Care Provider + [phone] Encounter Details Date Type Department Care Team (Latest Contact Info) Description 08/05/2017 Transcribe Orders [facility] [place], [facility] Ultrasound [address] [place], [place] [phone] Rupinder Vicente MD [address] [facility], [address] [place], [place] [address] [email or web address] Postmenopausal bleeding (Primary Dx) Social History Tobacco [...] Description 08/19/2025 10:00 AM EST Office Visit [facility] Rheumatology [address] [place] [address] Emily George MD [address] [facility], [address] [place] [address] [email or web address] 02/18/2026 3:00 PM EDT Office Visit [facility] Family Medicine [address] [place] [address] Guera Banks [address] [facility], [address] [place] [address] [email or web address] documented as of this encounter [...] bleeding documented in this encounter Care Teams Dean Of Instruction Relationship Specialty Start Date End Date Pepe Adams MD [address] [place] [address] PCP - General Internal Medicine 07/31/17 Hayden Wells MD [email or web address] Historical LMR Provider 07/25/17 Charly Gordon MD [address] [place] [address], [facility] [address] [place] [address] [email or web address] Historical LMR Provider 07/25/17 10/15/21 Emily George MD [address] [place] [address], [address] [place] [address] Historical LMR Provider 07/25/17 Juan Manuel Knox MD [address] [place] [address], 2nd [place] [address] Historical LMR Provider 07/25/17 10/15/21 Raquel Alicea NP [address] [place] [address] Historical LMR Provider 07/25/17 2 Rupinder Vicente MD [address] [place] [address] [email or web address] Historical LMR Provider 07/25/17 10/15/21 Pepe Adams MD [address] [place] [address] Historical LMR Provider 07/25/17 Luis Lopez MD [address] [place] [address] Historical LMR Provider 07/25/17 10/15/21 Rafaela Shultz MD [address] [place] [address] [email or web address] Historical LMR Provider 07/25/17 10/15/21 documented as of this encounter Additional Source Comments The information contained in this document represents components of the legal health record. It is not the complete legal health record.[facility]
--- OUTSIDE RECORDS SUMMARY | 2025-08-06 12:38 | XMS_ITS | Patient Health Record ---
Author Organization [facility] Address [address] [place] [address] Care Team Providers Care Drawer In Hand Name Role Phone Nnamdi Altman Unavailable [phone] Reason For Referral No Information Plan Of Treatment No Information
--- OUTSIDE RECORDS SUMMARY | 2025-08-06 12:38 | XMS_ITS | Encounter Summary ---
Author Organization [facility] Address [address] [place] [address] Care Team Providers Care Endocrinology Specialist Name Role Phone Physician, Pcp Unknown Primary Care Provider Mary vailable Encounter Details Date Type Department Care Team (Late st Contact Info) Description 07/31/2025 Lab Requisition [facility] - Main Lab [address] [place] [address] Mitch Motley PA [address] [facility] [address] [place] [address] Pyuria Social History Tobacco Use Types Packs/Day [...] URINE Routine 07/31/2025 12:00 AM EDT Pyuria documented in this encounter Results * (ABNORMAL) Culture urine (07/31/2025 12:00 AM EDT) Culture, Urine >=100,000 CFU/mL Klebsiella pneumoniae ssp pneumoniae(A) MIRNA 08/02/2025 8:10 AM EDT [facility] Comment: This is an edited result. [...] pneumoniae Trimethoprim/Sulfamethoxazo le MIRNA <=20 ug/ml: Susceptible us Mitch [facility] MICROBIOLOGY - GENERAL ORDER MIGUEL Final Result [facility] ([facility]) [facility] [address] [place] [address], [place] [phone] documented in this encounter Visit Diagnoses Diagnosis Pyuria Other nonspecific finding on examination of urine documented in this encounter Care Teams Endocrinology Specialist Relationship Specialty Start Date End Date Physician, Pcp Unknown PCP - General 09/10/24 documented as of this encounter
--- OUTSIDE RECORDS SUMMARY | 2025-08-06 12:39 | XMS_ITS | Encounter Summary ---
Author Organization [facility] Address [address] [place] [address] [place] [address] Phone Care Team Providers Care Licensed Investment Sales Assistant Name Role Phone Hayden Wells MD Unavailable [email or web address] [email or web address] Charly Gordon MD Unavailable Emily George MD Unavailable [phone] Juan Manuel Knox MD Unavailable [phone] Raquel Alicea NP Unavailable [phone] Rupinder Vicente MD Unavailable Pepe Adams MD Unavailable [phone] Luis Lopez MD Unavailable [phone] Rafaela Shultz MD Unavailable [phone] Pepe Adams MD Primary Care Provider + [phone] Encounter Details Date Type Department Care Team (Late st Contact Info) Description 11/01/2017 Ancillary Orders [facility], X-Ray - [address] [address] Pepe Adams MD [address] [place] [address] Right shoulder pain, unspecified chronicity Social History [...] 08/19/2025 10:00 AM EST Office Visit [facility] Rheumatology [address] [place] [address] Emily George MD [address] [facility], [address] [place] [address] [email or web address] 02/18/2026 3:00 PM EDT Office Visit [facility] Family Medicine [address] [place] [address] Guera Banks [address] [facility], [address] [place] [address] [email or web address] documented as of this encounter Results * XR SHOULDER 2 VIEWS (RIGHT) (11/01/2017 7:54 PM EST) Anatomical Region Laterality Modality Shoulder Right Radiographic Akosua ging 11/01/2017 7:51 PM EST Impressions 11/01/2017 8:37 PM EST There may be a small amount of rotator cuff calcific tendinopathy present. No other source of the pain is seen. Ordering physician: Pepe Adams MD POS - [id number] Edited by: Alisha Benton on 11/01/2017 8:07 [...] Ordering physician: Pepe Adams MD POS - [id number] Edited by: Alisha Benton on 11/01/2017 8:07 PM Pepe Adams MD IMG XR UPPER EXTREMITY Fin al Result documented in this encounter Visit Diagnoses Diagnosis Right shoulder pain, unspecified chronicity Right shoulder pain, unspecified chronicity documented in this encounter Care Teams Licensed Investment Sales Assistant Relationship Specialty Start Date End Date Pepe Adams MD [address] [place] [address] PCP - General Internal Medicine 07/31/17 Hayden Wells MD [email or web address] Historical LMR Provider 07/25/17 Charly Gordon MD [address] [place] [address], [address] [place] [address] [email or web address] Historical LMR Provider 07/25/17 10/15/21 Emily George MD [address] [place] [address], [address] [place] [address] Historical LMR Provider 07/25/17 Juan Manuel Knox MD [address] [place] [address], 2nd [place] [address] Historical LMR Provider 07/25/17 10/15/21 Raquel Alicea NP [address] [place] [address] Historical LMR Provider 07/25/17 2 Rupinder Vicente MD [address] [place] [address] Historical LMR Provider 07/25/17 10/15/21 Pepe Adams MD [address] [place] [address] Historical LMR Provider 07/25/17 Luis Lopez MD [address] [place] [address] Historical LMR Provider 07/25/17 10/15/21 Rafaela Shultz MD [address] [place] [address] [email or web address] Historical LMR Provider 07/25/17 10/15/21 documented as of this encounter Additional Source Comments The information contained in this document represents components of the legal health record. It is not the complete legal health record.[facility]
--- OUTSIDE RECORDS SUMMARY | 2025-08-06 12:39 | XMS_ITS | Encounter Summary ---
Author Organization [facility] Address [address] [place] [address] [place] [address] Phone Care Team Providers Care Entry Level Electrician Name Role Phone Hayden Wells MD Unavailable [email or web address] Charly Gordon MD Unavailable Emily George MD Unavailable [phone] Juan Manuel Knox MD Unavailable [phone] Raquel Alicea NP Unavailable [phone] Rupinder Vicente MD Unavailable Pepe Adams MD Unavailable [phone] Luis Lopez MD Unavailable [phone] Rafaela Shultz MD Unavailable [phone] Pepe Adams MD Primary Care Provider + [phone] Encounter Details Date Type Department Care Team (Late st Contact Info) Description 10/25/2017 Procedure Pass [facility], [address] [address] Social History Tobacco Use Types Packs/Day Years [...] Description 08/19/2025 10:00 AM EST Office Visit [facility] Rheumatology [address] [place] [address] [place] [address] Emily George MD [address] [place] [address], [address] [place] [address] [email or web address] 02/18/2026 3:00 PM EDT Office Visit [facility] Family Medicine [address] [place] [address] [place] [address] Guera Banks [address] [facility], [address] [place] [address] [email or web address] documented as of this encounter Visit Diagnoses Not on filedocumented in this encounter Care Teams Entry Level Electrician Relationship Specialty Start Date End Date DaniellaPepe MD [address] [place] [address] PCP - General Internal Medicine 07/31/17 Hayden Wells MD [email or web address] Historical LMR Provider 07/25/17 Charly Gordon MD [address] [place] [address], [address] [place] [address] Historical LMR Provider 07/25/17 10/15/21 Emily George MD [address] [place] [address], [address] [place] [address] Historical LMR Provider 07/25/17 Juan Manuel Knox MD [address] [place] [address], 2[address] [place] [address] Historical LMR Provider 07/25/17 10/15/21 Raquel Alicea NP [address] [place] [address] Historical LMR Provider 07/25/17 2 Rupinder Vicente MD [address] [place] [address] [email or web address] Historical LMR Provider 07/25/17 10/15/21 Pepe Adams MD [address] [place] [address] Historical LMR Provider 07/25/17 Luis Lopez MD [address] [place] [address] Historical LMR Provider 07/25/17 10/15/21 Rafaela Shultz MD [address] [place] [address] [email or web address] Historical LMR Provider 07/25/17 10/15/21 documented as of this encounter Additional Source Comments The information contained in this document represents components of the legal health record. It is not the complete legal health record.[facility]
--- OUTSIDE RECORDS SUMMARY | 2025-08-06 12:39 | XMS_ITS | Encounter Summary ---
Author Organization [facility] Address [address] [place] [address] [place] [address] Phone Care Team Providers Care Expeller Operator Name Role Phone Hayden Wells MD Unavailable [facility] [email or web address] Charly Gordon MD Unavailable Emily George MD Unavailable [phone] Juan Manuel Knox MD Unavailable [phone] Raquel Alicea NP Unavailable [phone] Rupinder Vicente MD Unavailable Pepe Adams MD Unavailable [phone] Luis Lopez MD Unavailable [phone] Rafaela Shultz MD Unavailable [phone] Pepe Adams MD Primary Care Provider Reason for Referral * MRI/CAT Scan - Closed Specialty Diagnoses / Procedures Referred By Contac t Referred To Contact Radiology Diagnoses Acute low back pain with radicular symptoms, duration less than 6 weeks Procedures MRI Cervical Spine MRI Thoracic Spine Pepe Adams MD [address] [place] [address] Phone: tel: fax: Referral ID Status Reason Start Date Expiration Date Visits Re quested Visits Authorized [id number] Closed 10/25/2017 10/25/2018 1 1 Encounter Details Date Type Department Care Team (Late st Contact Info) Description 10/25/2017 Ancillary Orders Virtual Department [address] [place] [address] Pepe Adams MD [address] [place] [address] Acute low back pain with radicular symptoms, [...] Description 08/19/2025 10:00 AM EST Office Visit [facility] Rheumatology [address] [place] [address] Emily George MD [address] [place] [address], [address] [place] [address] [email or web address] 02/18/2026 3:00 PM EDT Office Visit [facility] Family Medicine [address] [place] [address] Guera Banks [address] [facility], [address] [place] [address] [email or web address] documented as of this encounter Results * MRI CERVICAL SPINE (BONE) WITHOUT CONTRAST (11/01/2017 7:25 PM EST) Anatomical Region Laterality Modality C-spine Magnetic Resonan ce 11/01/2017 7:19 PM EST Impressions 11/01/2017 7:39 PM EST Moderate spondylotic changes as above but without prominent canal or foraminal stenosis. POS - [id number] Ordering physician: Pepe Adams MD Edited by: [...] of clear concern is detected within the [id number]. No jennifer cerebellar tonsillar ectopia. Procedure Note [...] finding of clear concern is detectedwithin the [id number]-ov-tdfc. No jennifer cerebellar tonsillar ectopia. IMPRESSION: Moderate spondylotic changes as above but without prominent canal orforaminal stenosis. POS - [id number] Ordering physician: Pepe Adams MD Edited by: Alisha Benton on 11/01/2017 7:35 PM Pepe Adams MD IMG MR XSPECIALTY Final Re sult documented in this encounter Visit Diagnoses Diagnosis Acute low back pain with radicular symptoms, duration less than 6 weeks Acute low back pain with radicular symptoms, duration less than 6 weeks documented in this encounter Care Teams Expeller Operator Relationship Specialty Start Date End Date Pepe Adams MD [address] [place] [address] PCP - General Internal Medicine 07/31/17 Hayden Wells MD [email or web address] Historical LMR Provider 07/25/17 Charly Gordon MD [address] [place] [address], [address] [place] [address] Historical LMR Provider 07/25/17 10/15/21 Emily George MD [address] [place] [address], [address] [place] [address] Historical LMR Provider 07/25/17 Juan Manuel Knox MD [address] [place] [address], 2nd [place] [address] Historical LMR Provider 07/25/17 10/15/21 Raquel Alicea NP [address] [place] [address] Historical LMR Provider 07/25/17 2 Rupinder Vicente MD [address] [place] [address] [email or web address] Historical LMR Provider 07/25/17 10/15/21 Pepe Adams MD [address] [place] [address] Historical LMR Provider 07/25/17 Luis Lopez MD [address] [place] [address] [email or web address] Historical LMR Provider 07/25/17 10/15/21 Rafaela Shultz MD [address] [place] [address] [email or web address] Historical LMR Provider 07/25/17 10/15/21 documented as of this encounter Additional Source Comments The information contained in this document represents components of the legal health record. It is not the complete legal health record.[facility]"
--- OUTSIDE RECORDS SUMMARY | 2025-08-06 12:41 | XMS_ITS | Encounter Summary ---
Author Organization [facility] Address [address] [place] [address] [place] [address] Phone Care Team Providers Care Sustainability Purchasing Agent Name Role Phone Hayden Wells MD Unavailable [email or web address] Emily George MD Unavailable [phone] Mugg, Pepe Abraham MD Unavailable [phone] [facility], Pepe Abraham MD Primary Care Provider + [phone] Encounter Details Date Type Department Care Team (Latest Contact Info) Description 10/26/2023 Transcribe Orders Virtual Department [address] [place] [address] [facility], Pepe Abraham MD [address] [place] [address] Post-menopausal (Primary Dx) Social History Tobacco Use [...] Description 08/19/2025 10:00 AM EST Office Visit [facility] Rheumatology [address] [place] [address] Emily George MD [address] [facility], [address] [place] [address] [email or web address] 02/18/2026 3:00 PM EDT Office Visit [facility] Family Medicine [address] [place] [address] Guera Banks [address] [facility], [address] [place] [address] [email or web address] documented as of this encounter Results * BD DXA AXIAL (SPINE) WITH HIP (06/18/2024 1:01 PM EDT) Anatomical Region Laterality Modality Bone Density Bone Density 06/18/2024 1:00 PM EDT Impressions 06/18/2024 1:02 PM EDT Interpretation: Osteopenia. Narrative 06/18/2024 1:02 PM EDT Referred By: PEPE GRIFFIN Scanner: Fanbouts A with serial# of [id number] located at [facility] Bone Density Scan (DXA) 06/18/24 [...] -2.5), or Osteoporosis (T-score <= -2.5). At [facility], T-scores are compared to peak bone density [...] - 06/18/2024 Referred By: PEPE GRIFFIN Scanner: Fanbouts A with serial# of [id number] located at [facility] Bone Density Scan (DXA) 06/18/24 Details of [...] -2.5), or Osteoporosis (T-score <= -2.5). At [facility], T-scores are compared to peak bone density [...] (natural) documented in this encounter Care Teams Sustainability Purchasing Agent Relationship Specialty Start Date End Date Pepe Griffin MD [address] [place] [address] PCP - General Internal Medicine 07/31/17 Hayden Wells MD [email or web address] Historical LMR Provider 07/25/17 Emily George MD [address] [place] [address], [address] [place] [address] [email or web address] Historical LMR Provider 07/25/17 Pepe Griffin MD [address] [place] [address] Historical LMR Provider 07/25/17 documented as of this encounter Additional Source Comments The information contained in this document represents components of the legal health record. It is not the complete legal health record.[facility]
--- OUTSIDE RECORDS SUMMARY | 2025-08-06 12:41 | XMS_ITS | Encounter Summary ---
Author Organization [facility] Address [address] [place] [address] [place] [address] Phone Care Team Providers Care Carriage Dogger Name Role Phone Hayden Wells MD Unavailable [email or web address] Charly Gordon MD Unavailable Emily George MD Unavailable [phone] Juan Manuel Knox MD Unavailable Raquel Alicea NP Unavailable [phone] Rupinder Vicente MD Unavailable Pepe Adams MD Unavailable [phone] Luis Lopez MD Unavailable [phone] Rafaela Shultz MD Unavailable [phone] Pepe Adams MD Primary Care Provider + [phone] Encounter Details Date Type Department Care Team (Late st Contact Info) Description 09/06/2017 Ancillary Orders [address] [address] Juan Manuel Knox MD [address] [facility], 2nd [place] [address] [email or web address] Sacroiliitis, not elsewhere classified Social History Tobacco [...] Description 08/19/2025 10:00 AM EST Office Visit [facility] Rheumatology [address] [place] [address] [place] [address] Emily George MD [address] [place] [address], [address] [place] [address] [email or web address] 02/18/2026 3:00 PM EDT Office Visit [facility] Family Medicine [address] [place] [address] Guera Banks [address] [place] [address], [address] [place] [address] [email or web address] documented as of this encounter Visit Diagnoses Diagnosis Sacroiliitis, not elsewhere classified documented in this encounter Care Teams Carriage Dogger Relationship Specialty Start Date End Date Pepe Adams MD [address] [place] [address] PCP - General Internal Medicine 07/31/17 Hayden Wells MD [email or web address] Historical LMR Provider 07/25/17 Charly Gordon MD [address] [place] [address], [address] [place] [address] Historical LMR Provider 07/25/17 10/15/21 Emily George MD [address] [place] [address], [address] [place] [address] Historical LMR Provider 07/25/17 Juan Manuel Knox MD 22 [facility], 2nd [place] [address] Historical LMR Provider 07/25/17 10/15/21 Raquel Alicea NP [address] [place] [address] Historical LMR Provider 07/25/17 2 Rupinder Vicente MD [address] [place] [address] [email or web address] Historical LMR Provider 07/25/17 10/15/21 Pepe Adams MD [address] [place] [address] Historical LMR Provider 07/25/17 Luis Lopez MD [address] [place] [address] [email or web address] Historical LMR Provider 07/25/17 10/15/21 Rafaela Shultz MD [address] [place] [address] [email or web address] Historical LMR Provider 07/25/17 10/15/21 documented as of this encounter Additional Source Comments The information contained in this document represents components of the legal health record. It is not the complete legal health record.[facility]
--- OUTSIDE RECORDS SUMMARY | 2025-08-06 12:41 | XMS_ITS | Encounter Summary ---
Author Organization [facility] Address [address] [facility] [address] [place] [address] Phone Care Team Providers Care Landscape Painter Name Role Phone Hayden Wells MD Unavailable [email or web address] Emily George MD Unavailable [phone] MugPepe MD Unavailable [phone] [facility] rom[facility] MD Primary Care Provider + [phone] Encounter Details Date Type Department Care Team (Late st Contact Info) Description 11/11/2024 Procedure Pass OR Admitting Dept - Virtual Department [address] [place] [address] Social History Tobacco Use Types Packs/Day Years [...] Description 08/19/2025 10:00 AM EST Office Visit [facility] Rheumatology [address] [place] [address] [place] [address] Emily George MD [address] [place] [address], [address] [place] [address] [email or web address] 02/18/2026 3:00 PM EDT Office Visit [facility] Family Medicine [address] [place] [address] Guera Banks [address] [place] [address], [address] [place] [address] [email or web address] documented as of this encounter Visit Diagnoses Not on filedocumented in this encounter Care Teams Landscape Painter Relationship Specialty Start Date End Date Pepe Adams MD [address] [place] [address] PCP - General Internal Medicine 07/31/17 Hayden Wells MD [email or web address] Historical LMR Provider 07/25/17 Emily George MD [address] [place] [address], [address] [place] [address] Historical LMR Provider 07/25/17 Pepe Adams MD [address] [place] [address] Historical LMR Provider 07/25/17 documented as of this encounter Additional Source Comments The information contained in this document represents components of the legal health record. It is not the complete legal health record.[facility]
--- OUTSIDE RECORDS SUMMARY | 2025-08-06 12:41 | XMS_ITS | Encounter Summary ---
Author Organization [facility] Address [address] [place] [address] [place] [address] Phone Care Team Providers Care Curtain Inspector Name Role Phone Hayden Wells MD Unavailable [email or web address] Charly Gordon MD Unavailable Emily George MD Unavailable [phone] Juan Manuel Knox MD Unavailable Raquel Alicea NP Unavailable [phone] Rupinder Vicente MD Unavailable [facility] MD Unavailable [phone] Luis Lopez MD Unavailable [phone] Rafaela Shultz MD Unavailable [phone] Pepe Adams MD Primary Care Provider + [phone] Encounter Details Date Type Department Care Team (Late st Contact Info) Description 10/26/2020 Ancillary Orders Virtual Department [address] [place] [address] Pepe Adams MD [address] [place] [id number] Breast screening Social History Tobacco Use Types [...] Description 08/19/2025 10:00 AM EST Office Visit [facility] Rheumatology [address] [place] [address] Emily George MD [address] [facility], [address] [place] [address] [email or web address] 02/18/2026 3:00 PM EDT Office Visit [facility] Family Medicine [address] [place] [address] Guera Banks [address] [facility], [address] [place] [address] [email or web address] documented as of this encounter [...] unspecified documented in this encounter Care Teams Curtain Inspector Relationship Specialty Start Date End Date Pepe Adams MD [address] [place] [address] PCP - General Internal Medicine 07/31/17 Hayden Wells MD [email or web address] Historical LMR Provider 07/25/17 Charly Gordon MD [address] [place] [address], [address] [place] [address] Historical LMR Provider 07/25/17 10/15/21 Emily George MD [address] [place] [address], [address] [place] [address] Historical LMR Provider 07/25/17 Juan Manuel Knox MD [address] [place] [address], 2nd [place] [address] Historical LMR Provider 07/25/17 10/15/21 Raquel Alicea NP [address] [place] [address] Historical LMR Provider 07/25/17 2 Rupinder Vicente MD [address] [place] [address] Historical LMR Provider 07/25/17 10/15/21 Pepe Adams MD [address] [place] [address] Historical LMR Provider 07/25/17 Luis Lopez MD [address] [place] [address] Historical LMR Provider 07/25/17 10/15/21 Rafaela Shultz MD [address] [place] [address] [email or web address], [email or web address] Historical LMR Provider 07/25/17 10/15/21 documented as of this encounter Additional Source Comments The information contained in this document represents components of the legal health record. It is not the complete legal health record.[facility]
--- OUTSIDE RECORDS SUMMARY | 2025-08-06 12:41 | XMS_ITS | Encounter Summary ---
Author Organization [facility] Address [address] [place] [address] [place] [address] Phone Care Team Providers Care Heat Welder Plastics Name Role Phone Hayden Wells MD Unavailable [email or web address] Charly Gordon MD Unavailable Emily George MD Unavailable Juan Manuel Knox MD Unavailable [phone] Raquel Alicea NP Unavailable [phone] Rupinder Vicente MD Unavailable [facility] Norman[facility]pe romano MD Unavailable [phone] Luis Lopez MD Unavailable [phone] Rafaela Shultz MD Unavailable [phone] Pepe Adams MD Primary Care Provider + [phone] Encounter Details Date Type Department Care Team (Late st Contact Info) Description 08/23/2018 Ancillary Orders Virtual Department [address] [place] [address] Pepe Adams MD [address] [place], [place] [phone] Breast screening Social History Tobacco Use Types [...] Description 08/19/2025 10:00 AM EST Office Visit [facility] Rheumatology [address] [place] [address] Emily George MD [address] [facility], [address] [place] [address] [email or web address] 02/18/2026 3:00 PM EDT Office Visit [facility] Family Medicine [address] [place] [address] Guera Banks [address] [facility], [address] [place] [address] [email or web address] documented as of this encounter [...] Images interpreted in conjunction with R-2 Image Flat Breakdown Processor computer-aided detection (CAD). FINDINGS: BREAST DENSITY: There [...] scattered fibroglandular densities. POS - CDHMAMA Pepe Admas MD IMG MG EXAMS Final Resu lt documented in this encounter Visit Diagnoses Diagnosis Breast screening Breast screening, unspecified Breast screening Breast screening, unspecified documented in this encounter Care Teams Heat Welder Plastics Relationship Specialty Start Date End Date Pepe Adams MD [address] [place] [address] PCP - General Internal Medicine 07/31/17 Hayden Wells MD [email or web address] Historical LMR Provider 07/25/17 Charly Gordon MD [address] [place] [address], [address] [place] [address] Historical LMR Provider 07/25/17 10/15/21 Emily George MD [address] [place] [address], [address] [place] [address] Historical LMR Provider 07/25/17 Juan Manuel Knox MD [address] [place] [address], 2[address] [place] [address] Historical LMR Provider 07/25/17 10/15/21 Raquel Alicea NP [address] [place] [address] Historical LMR Provider 07/25/17 2 Rupinder Vicente MD [address] [place] [address], [address] [place] [address] Historical LMR Provider 07/25/17 10/15/21 Pepe Adams MD [address] [place] [address] Historical LMR Provider 07/25/17 Luis Lopez MD [address] [place] [address], [address] [place] [address] Historical LMR Provider 07/25/17 10/15/21 Rafaela Shultz MD [address] [place] [address] [email or web address] Historical LMR Provider 07/25/17 10/15/21 documented as of this encounter Additional Source Comments The information contained in this document represents components of the legal health record. It is not the complete legal health record.[facility]
--- OUTSIDE RECORDS SUMMARY | 2025-08-06 12:41 | XMS_ITS | Encounter Summary ---
Author Organization [facility] Address [address] [place] [address] Care Team Providers Care Rn Observation Name Role Phone Physician, Pcp Unknown Primary Care Provider Mary vailable Encounter Details Date Type Department Care Team (Late st Contact Info) Description 10/23/2024 Lab Requisition [facility] - Main Lab [address] [place] [address] London Perez MD [address] [facility] [address] [place] [id number] Pyuria Social History Tobacco Use Types Packs/Day [...] Enterococcus faecalis(A) MIRNA 10/24/2024 10:17 AM EST [facility] Comment: SPARSE Edited result: Previously reported [...] MICROBIOLOGY - GENERAL ORDER MIGUEL Final Result [facility] [address] [place] [address], [place] [phone] documented in this encounter Visit Diagnoses Diagnosis Pyuria Other nonspecific finding on examination of urine documented in this encounter Care Teams Rn Observation Relationship Specialty Start Date End Date Physician, Pcp Unknown PCP - General 09/10/24 documented as of this encounter
--- OUTSIDE RECORDS SUMMARY | 2025-08-06 12:41 | XMS_ITS | Encounter Summary ---
Author Organization [facility] Address [address] [facility] [address] [place] [address] Phone Care Team Providers Care Metal Furniture Panel Coverer Name Role Phone Hayden eWlls MD Unavailable [email or web address] Emily George MD Unavailable [phone] MugPepe MD Unavailable [phone] [facility] MD Primary Care Provider + [phone] Encounter Details Date Type Department Care Team (Late st Contact Info) Description 02/08/2023 Procedure Pass [facility] - [address] [place] [address] Social History Tobacco Use Types Packs/Day Years [...] Description 08/19/2025 10:00 AM EST Office Visit [facility] Rheumatology [address] [place] [address] Emily George MD [address] [facility], [address] [place] [address] [email or web address] 02/18/2026 3:00 PM EDT Office Visit [facility] [address] [address] Guera Banks [address] [facility], [address] [place] [address] [email or web address] documented as of this encounter Visit Diagnoses Not on filedocumented in this encounter Care Teams Metal Furniture Panel Coverer Relationship Specialty Start Date End Date Pepe Adams MD [address] [place] [address] PCP - General Internal Medicine 07/31/17 Hayden Wells MD [email or web address] Historical LMR Provider 07/25/17 Emily George MD [address] [facility], [address] [place] [address] [email or web address] Historical LMR Provider 07/25/17 Pepe Adams MD [address] [place] [address] Historical LMR Provider 07/25/17 documented as of this encounter Additional Source Comments The information contained in this document represents components of the legal health record. It is not the complete legal health record.[facility]
--- OUTSIDE RECORDS SUMMARY | 2025-08-06 12:41 | XMS_ITS | Encounter Summary ---
Author Organization [facility] Address [address] [place] [address] [place] [address] Phone Care Team Providers Care Development Team Lead Name Role Phone Hayden Wells MD Unavailable [email or web address] Emily George MD Unavailable [phone] MuggPepe MD Unavailable [phone] [facility] MD Primary Care Provider + [phone] Encounter Details Date Type Department Care Team (Late st Contact Info) Description 04/15/2024 Procedure Pass [facility] - [address] [place] [address] Social History Tobacco Use Types Packs/Day Years [...] 08/19/2025 10:00 AM EST Office Visit [facility] Rheumatology [address] [place] [address] Emily George MD [address] [place] [address], [address] [place] [address] [email or web address] 02/18/2026 3:00 PM EDT Office Visit [facility] Family Medicine [address] [place] [address] Guera Banks [address] [place] [address], [address] [place] [address] [email or web address] documented as of this encounter Visit Diagnoses Not on filedocumented in this encounter Care Teams Development Team Lead Relationship Specialty Start Date End Date Pepe Adams MD [address] [place] [address] PCP - General Internal Medicine 07/31/17 Hayden Wells MD [email or web address] Historical LMR Provider 07/25/17 Emily George MD [address] [place] [address], [address] [place] [address] Historical LMR Provider 07/25/17 Pepe Adams MD [address] [place] [address] Historical LMR Provider 07/25/17 documented as of this encounter Additional Source Comments The information contained in this document represents components of the legal health record. It is not the complete legal health record.[facility]
--- OUTSIDE RECORDS SUMMARY | 2025-08-06 12:41 | XMS_ITS | Encounter Summary ---
Author Organization [facility] Address [address] [place] [address] Care Team Providers Care Skein Dyer Name Role Phone Physician, Pcp Unknown Primary Care Provider Mary vailable Encounter Details Date Type Department Care Team (Late st Contact Info) Description 09/10/2024 Lab Requisition [facility] - Main Lab [address] [facility] [place] [address] Ashanti Ramos PA [address] [facility] [address] [place] [address] Dysuria Social History Tobacco Use Types Packs/Day [...] Comments BACTERIAL IDENTIFICATION AND SUSCEPTIBILITY, AEROBIC Routine 09/09/2024 12:00 AM EST Dysuria documented in this encounter Results * Bacterial identification and susceptibility, aerobic (09/09/2024 12:00 AM EST) Culture, Bacterial ID and Sensitivity Multiple bacterial morphotypes present consistent with either contamination or urogenital marisa. Suggest repeat specimen, if clinically indicated. 09/10/2024 11:31 AM EST [facility] Other Topography unknown / Unknown 09/09/2024 09/10/2024 11:11 AM EST us Ashanti [facility] MICROBIOLOGY - GENERAL ORDER MIGUEL Final Result [facility] [address] [place] [address], documented in this encounter Visit Diagnoses Diagnosis Dysuria documented in this encounter Care Teams Skein Dyer Relationship Specialty Start Date End Date Physician, Pcp Unknown PCP - General 09/10/24 documented as of this encounter
--- OUTSIDE RECORDS SUMMARY | 2025-08-06 12:41 | XMS_ITS | Encounter Summary ---
Author Organization [facility] Address [address] [place] [address] Care Team Providers Care Manager Critical Care Name Role Phone Physician, Pcp Unknown Primary Care Provider Mary vailable Encounter Details Date Type Department Care Team (Late st Contact Info) Description 10/17/2024 Lab [facility]quisition [facility] [address] [place] [address] London Perez MD [address] [phone] Personal history of urinary (tract) infections Social History Tobacco Use Types Packs/Day Years [...] Date/Time Associated Diagnosis Comments CULTURE URINE Routine 10/17/2024 12:00 AM EST Personal history of urinary (tract) infections documented in this encounter Results * Culture urine (10/17/2024 12:00 AM EST) Culture, Urine No growth 10/18/2024 10:48 AM EST [facility] Urine Urine specimen obtained by clean catch procedure / Unknown 10/17/2024 10/17/2024 1:58 PM EST London Perez MD LAB MICROBIOLOGY - GENERAL ORDER MIGUEL Final Result [facility] [address] [place], [place] [address] [phone] documented in this encounter Visit Diagnoses Diagnosis Personal history of urinary (tract) infections documented in this encounter Care Teams Manager Critical Care Relationship Specialty Start Date End Date Physician, Pcp Unknown PCP - General 09/10/24 documented as of this encounter
--- OUTSIDE RECORDS SUMMARY | 2025-08-06 12:41 | XMS_ITS | Encounter Summary ---
Author Organization [facility] Address [address] [facility] [address] [place] [address] Phone Care Team Providers Care Program Director Group Work Name Role Phone Hayden Wells MD Unavailable [email or web address] Emily George MD Unavailable [phone] MugPepe MD Unavailable [phone] Pepe Adams MD Primary Care Provider + [phone] Encounter Details Date Type Department Care Team (Late st Contact Info) Description 10/06/2024 Procedure Pass OR Admitting Dept - Virtual Department [address] [place] [address] Social History Tobacco Use Types Packs/Day Years [...] Description 08/19/2025 10:00 AM EST Office Visit [facility] Rheumatology [address] [place] [address] [place] [address] Emily George MD [address] [place] [address], [address] [place] [address] [email or web address] 02/18/2026 3:00 PM EDT Office Visit [facility] Family Medicine [address] [place] [address] Guera Banks [address] [place] [address], [address] [place] [address] [email or web address] documented as of this encounter Visit Diagnoses Not on filedocumented in this encounter Care Teams Program Director Group Work Relationship Specialty Start Date End Date Pepe Adams MD [address] [place] [address] PCP - General Internal Medicine 07/31/17 Hayden Wells MD [email or web address] Historical LMR Provider 07/25/17 Emily George MD [address] [place] [address], [address] [place] [address] Historical LMR Provider 07/25/17 Pepe Adams MD [address] [place] [address] Historical LMR Provider 07/25/17 documented as of this encounter Additional Source Comments The information contained in this document represents components of the legal health record. It is not the complete legal health record.[facility]
--- OUTSIDE RECORDS SUMMARY | 2025-08-06 12:41 | XMS_ITS | Encounter Summary ---
Author Organization [facility] Address [address] [place] [address] Care Team Providers Care Farm Machinery Erector Name Role Phone Physician, Pcp Unknown Primary Care Provider Mary vailable Encounter Details Date Type Department Care Team (Late st Contact Info) Description 07/24/2025 Lab Requisition [facility] - Main Lab [address] [place] [address] Jak Mcgrath MD [address] [place] [address] Urinary tract infection, site not specified Social History Tobacco Use Types Packs/Day Years [...] Date/Time Associated Diagnosis Comments CULTURE URINE Routine 07/24/2025 12:00 AM EDT Urinary tract infection, site not specified documented in this encounter Results * Culture urine (07/24/2025 12:00 AM EDT) Culture, Urine No growth 07/25/2025 2:45 PM EDT [facility] Urine Urine specimen from urethra / Unknown 07/24/2025 07/24/2025 5:11 PM EDT us Jak Mcgrath MD LAB MICROBIOLOGY - GENER AL ORDERABLES Final Result [facility] [address] [place], [place] [address] [phone] documented in this encounter Visit Diagnoses Diagnosis Urinary tract infection, site not specified documented in this encounter Care Teams Farm Machinery Erector Relationship Specialty Start Date End Date Physician, Pcp Unknown PCP - General 09/10/24 documented as of this encounter
--- OUTSIDE RECORDS SUMMARY | 2025-08-06 12:41 | XMS_ITS | Encounter Summary ---
Author Organization [facility] Address [address] [place] [address] Care Team Providers Care Layaway Clerk Name Role Phone Physician, Pcp Unknown Primary Care Provider Mary vailable Encounter Details Date Type Department Care Team (Late st Contact Info) Description 09/30/2024 Lab Requisition [facility] - Main Lab [address] [facility] [place] [address] London Perez MD [address] [facility] [address] [place] [id number] Urinary tract infection, site not specified Social [...] Date/Time Associated Diagnosis Comments CULTURE URINE Routine 09/30/2024 12:00 AM EST Urinary tract infection, site not specified documented in this encounter Results * (ABNORMAL) Culture urine (09/30/2024 12:00 AM EST) Culture, Urine 10,000-49,000 CFU/mL Enterococcus faecalis(A) MIRNA 10/02/2024 11:10 AM EST [facility] Comment: The organism value for this result has been updated. These results have been appended to the previously preliminary verified report. Urine Urine specimen from urethra / Unknown 09/30/2024 09/30/2024 12:36 PM EST Narrative Organism Antibiotic Method Susceptibility Enterococcus faecalis Benzylpenicillin MIRNA 4 ug/ml: Susceptible Enterococcus faecalis Ampicillin MIRNA <=2 ug/ml: Susceptible Enterococcus faecalis Ciprofloxacin MIRNA 1 ug/ml: Susceptible Enterococcus faecalis Levofloxacin MIRNA 2 ug/ml: Susceptible Enterococcus faecalis Linezolid MIRNA 2 ug/ml: Susceptible Enterococcus faecalis Vancomycin MIRNA 2 ug/ml: Susceptible Enterococcus faecalis Tetracycline MIRNA >=16 ug/ml: Resistant Enterococcus faecalis Nitrofurantoin MIRNA <=16 ug/ml: Susceptible us London Perez MD LAB MICROBIOLOGY - GENERAL ORDER MIGUEL Final Result [facility] [address] [place] [address], documented in this encounter Visit Diagnoses Diagnosis Urinary tract infection, site not specified documented in this encounter Care Teams Layaway Clerk Relationship Specialty Start Date End Date Physician, Pcp Unknown PCP - General 09/10/24 documented as of this encounter
== END 2025-08-06 14:16 | disposition home or self-care (01) ==
LOC: HO.HOP 10:25
PROVIDERS: PCP Internal Medicine; Visit Provider Clinical Nurse Specialist Psychiatric/Mental Health
DX: F42.2 Mixed obsessional thoughts and acts (principal); G47.00 Insomnia, unspecified
CPT/HCPCS: 90792

== ENCOUNTER → 2025-08-06 10:25 | Outpatient (BNVA) | payer OTHER, SELFPAY | PROVIDERS: PCP Internal Medicine; Visit Provider Clinical Nurse Specialist Psychiatric/Mental Health | DX: F42.2 Mixed obsessional thoughts and acts (principal); G47.00 Insomnia, unspecified; Z79.899 Other long term (current) drug therapy | CPT/HCPCS: 90792 ==

== ENCOUNTER 2025-09-08 10:51 | Outpatient (REF) | payer OTHER, SELFPAY ==
[2025-09-08 13:20] LABS: Magnesium 2.0 mg/dL (1.6-2.6)
[2025-09-08 13:54] LABS: Folate 12.1 ng/mL (> or = 4.0); Vitamin B12 653 pg/mL (200-900)
--- OUTSIDE RECORDS SUMMARY | 2025-09-08 14:15 | XMS_ITS | Encounter Summary ---
Author Organization [facility] Address [address] [place] [address] [place] [address] Phone Care Team Providers Care Recruiting Consultant Name Role Phone Hayden Wells MD Unavailable [email or web address] Charly Gordon MD Unavailable Emily George MD Unavailable Juan Manuel Knox MD Unavailable [phone] Raquel Alicea NP Unavailable [phone] Rupinder Vicente MD Unavailable [facility] MD Unavailable [phone] Luis Lopez MD Unavailable [phone] Rafaela Shultz MD Unavailable [phone] Pepe Adams MD Primary Care Provider + [phone] Major Whitfield MD Primary Care Provid er Encounter Details Date Type Department Care Team (Late st Contact Info) Description 08/26/2019 Ancillary Orders Virtual Department [address] [place] [address] Pepe Adams MD [address] [place] [address] [phone] Breast cancer screening by mammogram Social History [...] Care Team (Late st Contact Info) Description 02/17/2026 11:00 AM EDT Office Visit [facility] Rheumatology [address] [place] [address] Emily George MD [address] [facility], [address] [place] [address] [email or web address] 02/18/2026 3:00 PM EDT Office Visit [facility] Family Medicine [address] [place] [address] Guera Banks [address] [facility], [address] [place] [address] [email or web address] documented as of this encounter [...] DENSITY: There are scattered fibroglandular densities. POS -[id number] Narrative 11/03/2019 10:42 AM EST Bilateral full-field [...] DENSITY: There are scattered fibroglandular densities. POS -[id number] Pepe Adams MD IMG MG EXAMS Final Resu lt documented in this encounter Visit Diagnoses Diagnosis Breast cancer screening by mammogram Breast cancer screening by mammogram documented in this encounter Care Teams Recruiting Consultant Relationship Specialty Start Date End Date Pepe Adams MD [address] [place] [address] PCP - General Internal Medicine 07/31/17 08/09/25 Major Whitfield MD [address] [place] [address] PCP - General Internal Medicine 08/10/25 Hayden Wells MD [email or web address] Historical LMR Provider 07/25/17 08/16/25 Charly Gordon MD [address] [place] [address] [email or web address] Historical LMR Provider 07/25/17 10/15/21 Emily George MD [address] [place] [address], [address] [place] [address] Historical LMR Provider 07/25/1708/16/25 Juan Manuel Knox MD [address] [place] [address], 2[address] [place] [address] Historical LMR Provider 07/25/17 10/15/21 Raquel Alicea NP [address] [place] [address] Historical LMR Provider 07/25/17 2 Rupinder Vicente MD [address] [place] [address] Historical LMR Provider 07/25/17 10/15/21 Pepe Adams MD [address] [place] [address] Historical LMR Provider 07/25/17 Luis Lopez MD [address] [place] [address], [address] [address] Historical LMR Provider 07/25/17 10/15/21 Rafaela Shultz MD [address] [place] [address] [email or web address] Historical LMR Provider 07/25/17 10/15/21 documented as of this encounter Additional Source Comments The information contained in this document represents components of the legal health record. It is not the complete legal health record.[facility]
--- OUTSIDE RECORDS SUMMARY | 2025-09-08 14:15 | XMS_ITS | Encounter Summary ---
Author Organization [facility] Address [address] [place] [address] [place] [address] Phone Care Team Providers Care Instructor Dancing Name Role Phone Hayden Wells MD Unavailable [email or web address] Charly Gordon MD Unavailable Emily George MD Unavailable [phone] Juan Manuel Knox MD Unavailable [phone] Raquel Alicea NP Unavailable [phone] Rupinder Vicente MD Unavailable Pepe Adams MD Unavailable [phone] Luis Lopez MD Unavailable [phone] Rafaela Shultz MD Unavailable [phone] Pepe Adams MD Primary Care Provider + [phone] Major Whitfield MD Primary Care Provid er Encounter Details Date Type Department Care Team (Late st Contact Info) Description 10/26/2020 Procedure Pass [facility] - [address] [place] [address] Social History Tobacco Use Types Packs/Day Years [...] Description 02/17/2026 11:00 AM EDT Office Visit [facility] Rheumatology [address] [place] [address] [place] [address] Emily George MD [address] [place] [address], [address] [place] [address] [email or web address] 02/18/2026 3:00 PM EDT Office Visit [facility] Family Medicine [address] [place] [address] [place] [address] Guera Banks [address] [place] [address], [address] [place] [address] [email or web address] documented as of this encounter Visit Diagnoses Not on filedocumented in this encounter Care Teams Instructor Dancing Relationship Specialty Start Date End Date Pepe Adams MD [address] [place] [address] PCP - General Internal Medicine 07/31/17 08/09/25 Major Whitfield MD [address] [place] [address] PCP - General Internal Medicine 08/10/25 Hayden Wells MD [email or web address] Historical LMR Provider 07/25/17 08/16/25 Charly Gordon MD [address] [place] [address], [address] [place] [address] Historical LMR Provider 07/25/17 10/15/21 Emily George MD [address] [place] [address], [address] [place] [address] Historical LMR Provider 07/25/1708/16/25 Juan Manuel Knox MD [address] [facility], [address] [place] [address] Historical LMR Provider 07/25/17 10/15/21 Raquel Alicea NP [address] [place] [address] Historical LMR Provider 07/25/17 2 Rupinder Vicente MD [address] [place] [address] Historical LMR Provider 07/25/17 10/15/21 Pepe Adams MD [address] [place] [address] Historical LMR Provider 07/25/17 Luis Lopez MD [address] [place] [address], [address] [address] Historical LMR Provider 07/25/17 10/15/21 Rafaela Shultz MD [address] [place] [address] [email or web address] Historical LMR Provider 07/25/17 10/15/21 documented as of this encounter Additional Source Comments The information contained in this document represents components of the legal health record. It is not the complete legal health record.[facility]
--- OUTSIDE RECORDS SUMMARY | 2025-09-08 14:15 | XMS_ITS | Encounter Summary ---
Author Organization [facility] Address [address] [place] [address] [place] [address] Phone Care Team Providers Care Enhanced Environmental Operator Name Role Phone Hayden Wells MD Unavailable [email or web address] Charly Gordon MD Unavailable Emily George MD Unavailable [phone] Juan Manuel Knox MD Unavailable Raquel Alicea NP Unavailable [phone] Rupinder Vicente MD Unavailable [facility] MD Unavailable [phone] Luis Lopez MD Unavailable [phone] Rafaela Shultz MD Unavailable [phone] [facility] MD Primary Care Provider + [phone] Major Whitfield MD Primary Care Provid er Encounter Details Date Type Department Care Team (Latest Contact Info) Description 08/05/2017 Transcribe Orders [facility] Ul[facility]ound [address] [place], [place] [phone] Rupinder Vicente MD [address] [facility], [address] [place], [place] [phone] [email or web address] Postmenopausal bleeding (Primary Dx) Social History Tobacco [...] Description 02/17/2026 11:00 AM EDT Office Visit [facility] Rheumatology [address] [place] [address] Emily George MD [address] [facility], [address] [place] [address] [email or web address] 02/18/2026 3:00 PM EDT Office Visit [facility] Medicine [address] [place] [address] [place] [address] Guera Banks [address] [place] [address], [address] [place] [address] [email or web address] documented as of this encounter [...] bleeding documented in this encounter Care Teams Enhanced Environmental Operator Relationship Specialty Start Date End Date [facility] [address] [place] [address] PCP - General Internal Medicine 07/31/17 08/09/25 Major Whitfield MD [address] [place] [address] PCP - General Internal Medicine 08/10/25 Hayden Wells MD [email or web address] Historical LMR Provider 07/25/17 08/16/25 Charly Gordon MD [address] [place] [address], [address] [place] [address] Historical LMR Provider 07/25/17 10/15/21 Emily George MD [address] [place] [address], [address] [place] [address] Historical LMR Provider 07/25/1708/16/25 Juan Manuel Knox MD [address] [facility], 2nd [place] [address] [email or web address] Historical LMR Provider 07/25/17 10/15/21 Raquel Alicea NP [address] [place] [address] Historical LMR Provider 07/25/17 2 Rupinder Vicente MD [address] [place] [address] [email or web address] Historical LMR Provider 07/25/17 10/15/21 Pepe Adams MD [address] [place] [address] Historical LMR Provider 07/25/17 Luis Lopez MD [address] [place] [address] [email or web address] Historical LMR Provider 07/25/17 10/15/21 Rafaela Shultz MD [address] [place] [address] [email or web address] Historical LMR Provider 07/25/17 10/15/21 documented as of this encounter Additional Source Comments The information contained in this document represents components of the legal health record. It is not the complete legal health record.[facility]
--- OUTSIDE RECORDS SUMMARY | 2025-09-08 14:15 | XMS_ITS | Encounter Summary ---
Author Organization [facility] Address [address] [place] [address] [place] [address] Phone Care Team Providers Care Machine Baster Name Role Phone Hayden Wells MD Unavailable [email or web address] Emily George MD Unavailable [phone] MugPepe MD Unavailable [phone] Pepe Adams MD Primary Care Provider + [phone] Major Whitfield MD Primary Care Provid er Encounter Details Date Type Department Care Team (Late st Contact Info) Description 12/21/2021 Procedure Pass [address] [address] Social History Tobacco Use Types Packs/Day Years [...] Description 02/17/2026 11:00 AM EDT Office Visit [facility] Rheumatology [address] [place] [address] Emily George MD [address] [facility], [address] [place] [address] [email or web address] 02/18/2026 3:00 PM EDT Office Visit [facility] Medicine [address] [place] [address] Guera Banks [address] [facility], [address] [place] [address] [email or web address] documented as of this encounter Visit Diagnoses Not on filedocumented in this encounter Care Teams Machine Baster Relationship Specialty Start Date End Date Pepe Adams MD [address] [place] [address] PCP - General Internal Medicine 07/31/17 08/09/25 Major Whitfield MD [address] [place] [address] PCP - General Internal Medicine 08/10/25 Hayden Wells MD [email or web address] Historical LMR Provider 07/25/17 08/16/25 Emily George MD [address] [facility], [address] [place] [address] [email or web address] Historical LMR Provider 07/25/1708/16/25 Pepe Adams MD [address] [place] [address] Historical LMR Provider 07/25/17 documented as of this encounter Additional Source Comments The information contained in this document represents components of the legal health record. It is not the complete legal health record.[facility]
--- OUTSIDE RECORDS SUMMARY | 2025-09-08 14:15 | XMS_ITS | Encounter Summary ---
Author Organization [facility] Address [address] [place] [address] [place] [address] Phone Care Team Providers Care Smoking Pipes Cleaner Name Role Phone Hayden Wells MD Unavailable [email or web address] [email or web address] Charly Gordon MD Unavailable Emily George MD Unavailable Juan Manuel Knox MD Unavailable Raquel Alicea NP Unavailable [phone] Rupinder Vicente MD Unavailable [facility] rom[facility] MD Unavailable [phone] Luis Lopez MD Unavailable [phone] Rafaela Shultz MD Unavailable [phone] Pepe Adams MD Primary Care Provider + [phone] Major Whitfield MD Primary Care Provid er Encounter Details Date Type Department Care Team (Late st Contact Info) Description 07/31/2017 Ancillary Orders [facility] [address] [place] [address] [id number] Rupinder Vicente MD [address] [facility], [address] [place], [place] [phone] [email or web address] Breast screening Social History Tobacco Use Types [...] Description 02/17/2026 11:00 AM EDT Office Visit [facility] Rheumatology [address] [place] [address] Emily George MD [address] [facility], [address] [place] [address] [email or web address] 02/18/2026 3:00 PM EDT Office Visit [facility] Family Medicine [address] [place] [address] Guera Banks [address] [facility], [address] [place] [address] [email or web address] documented as of this encounter [...] have arisen in the interim. Procedure Note Rifken, Constance L, MD - 09/17/2017 Standard digital full-field 2-D C view and two-plane tomographic imagingwas performed and compared with multiple prior studies, most snyhmjub63/01/2016, with utilization of computer-aided detection. The breasts [...] are scattered fibroglandular densities. POS - CDHMAMA us Rupinder Vicente MD IMG MG EXAMS Final Result documented in this encounter Visit Diagnoses Diagnosis Breast screening Breast screening, unspecified Breast screening Breast screening, unspecified documented in this encounter Care Teams Smoking Pipes Cleaner Relationship Specialty Start Date End Date Pepe Adams MD [address] [place] [address] PCP - General Internal Medicine 07/31/17 08/09/25 Major Whitfield MD [address] [place] [address] PCP - General Internal Medicine 08/10/25 Hayden Wells MD [email or web address] Historical LMR Provider 07/25/17 08/16/25 Charly Gordon MD [address] [place] [address], [address] [address] [email or web address] Historical LMR Provider 07/25/17 10/15/21 Emily George MD [address] [place] [address], [address] [place] [address] Historical LMR Provider 07/25/1708/16/25 Juan Manuel Knox MD [address] [facility], 2nd [place] [address] Historical LMR Provider 07/25/17 10/15/21 Raquel Alicea NP [address] [place] [address] Historical LMR Provider 07/25/17 2 Rupinder Vicente MD [address] [address] Historical LMR Provider 07/25/17 10/15/21 Pepe Adams MD [address] [place] [address] Historical LMR Provider 07/25/17 Luis Lopez MD 22 [facility], [address] [place] [address] Historical LMR Provider 07/25/17 10/15/21 Rafaela Shultz MD [address] [place] [address] [email or web address] Historical LMR Provider 07/25/17 10/15/21 documented as of this encounter Additional Source Comments The information contained in this document represents components of the legal health record. It is not the complete legal health record.[facility]
--- OUTSIDE RECORDS SUMMARY | 2025-09-08 14:15 | XMS_ITS | Clinical Summary ---
Author Organization [address] Address [address] [place] [address] Phone Care Team Providers Care Transplant Rn Name Role Phone Physician, Pcp Unknown Primary Care Provider Mary vailable Encounters Date Type Department Care Team Description 07/31/2025 Lab Requisition [facility] [address] [place] [address] Mitch Motley PA Pyuria 07/24/2025 Lab Requisition [facility] [address] [place] [address] Jak Mcgrath MD Urinary tract [...] Depression Screening 10/08/2024 COVID-19 Vaccine (1 - 2024-2 6 season) 2025 Influenza Vaccine (#1) 2025 RSV [...] ssp pneumoniae(A) MIRNA 08/02/2025 8:10 AM EDT [facility] Comment: This is an edited result. [...] - GENERAL ORDER MIGUEL Final Result [facility] ([facility]) [facility] [address] [place] [address], from Last 3 [place] [address] [employer] Care Teams Transplant Rn Relationship Specialty Start Date End Date Physician, Pcp Unknown PCP - General 09/10/24
--- OUTSIDE RECORDS SUMMARY | 2025-09-08 14:15 | XMS_ITS | Encounter Summary ---
Author Organization [facility] Address [id number] [place] [address] Care Team Providers Care Unemployment Inspector Name Role Phone Physician, Pcp Unknown Primary Care Provider Mary vailable Encounter Details Date Type Department Care Team (Late st Contact Info) Description 03/17/2025 Lab Requisition [facility] Lab 299 [facility] [place] [address] London Perez MD [address] [facility] 103 [place] [phone] Dysuria Social History Tobacco Use Types Packs/Day [...] if clinically indicated. 03/18/2025 9:[address] [facility] Other Urine specimen from urethra / Unknown 03/16/2025 03/17/2025 10:26 AM EDT us London Perez MD LAB MICROBIOLOGY - GENERAL ORDER MIGUEL Final Result [facility] [place] ([facility] LAB [address] [place] [address], documented in this encounter Visit Diagnoses Diagnosis Dysuria documented in this encounter Care Teams Unemployment Inspector Relationship Specialty Start Date End Date Physician, Pcp Unknown PCP - General 09/10/24 documented as of this encounter
--- OUTSIDE RECORDS SUMMARY | 2025-09-08 14:16 | XMS_ITS | Encounter Summary ---
Author Organization [facility] [place] [facility] Address [address] [place] [address] [place] [address] Phone Care Team Providers Care Autocad Operator Name Role Phone Hayden Wells MD Unavailable [email or web address] [email or web address] Charly Gordon MD Unavailable Emily George MD Unavailable [phone] Juan Manuel Knox MD Unavailable [phone] Raquel Alicea NP Unavailable [phone] Rupinder Vicente MD Unavailable Pepe Adams MD Unavailable [phone] Luis Lopez MD Unavailable [phone] Rafaela Shultz MD Unavailable [phone] Pepe Adams MD Primary Care Provider + [phone] Major Whitfield MD Primary Care Provid er Reason for Referral * MRI/CAT Scan - Closed Specialty Diagnoses / Procedures Referred By Contshonda t Referred To Contact Radiology Diagnoses Acute low back pain with radicular symptoms, duration less than 6 weeks Procedures MRI Cervical Spine MRI Thoracic Spine Pepe [place] MD [address] [place] [address] Phone: tel: fax: Referral ID Status Reason Start Date Expiration Date Visits Re quested Visits Authorized [id number] Closed 10/25/2017 10/25/2018 1 1 Encounter Details Date Type Department Care Team (Late st Contact Info) Description 10/25/2017 Ancillary Orders Virtual Department [address] [place] [address] Pepe Adams MD [address] [place] [address] Acute low back pain with radicular symptoms, [...] Department Care Team (Late Contact Info) Description 02/17/2026 11:00 AM EDT Office Visit [facility] Rheumatology [address] [place] [address] Emily George MD 22 [facility], [address] [place] [address] [email or web address] 02/18/2026 3:00 PM EDT Office Visit [facility] [address] [place] [address] Guera Banks 22 [facility], [address] [place] [address] [email or web address] documented as of this encounter Results * MRI CERVICAL SPINE (BONE) WITHOUT CONTRAST (11/01/2017 7:25 PM EST) Anatomical Region Laterality Modality C-spine Magnetic Resonan ce 11/01/2017 7:19 PM EST Impressions 11/01/2017 7:39 PM EST Moderate spondylotic changes as above but without prominent canal or foraminal stenosis. POS - [id number] Ordering physician: Pepe [place] MD Edited by: [...] of clear concern is detected within the mexnd-uj-cjhv. No jennifer cerebellar tonsillar ectopia. Procedure Note [...] finding of clear concern is detectedwithin the jbnrr-np-lmsv. No jennifer cerebellar tonsillar ectopia. IMPRESSION: Moderate spondylotic changes as above but without prominent canal orforaminal stenosis. POS - [id number] Ordering physician: Pepe [place] MD Edited by: Alisha Benton on 11/01/2017 7:35 PM Pepe [place] MD IMG MR XSPECIALTY Final Re sult documented in this encounter Visit Diagnoses Diagnosis Acute low back pain with radicular symptoms, duration less than 6 weeks Acute low back pain with radicular symptoms, duration less than 6 weeks documented in this encounter Care Teams Autocad Operator Relationship Specialty Start Date End Date Pepe [place] MD [address] [place] [address] PCP - General Internal Medicine 07/31/17 08/09/25 Major Whitfield MD [address] [place] [address] PCP - General Internal Medicine 08/10/25 Hayden Wells MD [email or web address] Historical LMR Provider 07/25/17 08/16/25 Charly Gordon MD [address] [place] [address], [address] [address] [email or web address] Historical LMR Provider 07/25/17 10/15/21 Emily George MD [address] [place] [address], [facility] [address] [place] [address] Historical LMR Provider 07/25/1708/16/25 Juan Manuel Knox MD [address] [place] [address], 2nd [place] [address] Historical LMR Provider 07/25/17 10/15/21 Raquel Alicea NP [address] [place] [address] Historical LMR Provider 07/25/17 Rupinder Fierro MD [address] [place] [address] Historical LMR Provider 07/25/17 10/15/21 Pepe [place] MD [address] [place] [address] Historical LMR Provider 07/25/17 Luis Lopez MD 22 [facility], [address] [place] [address] [email or web address] Historical LMR Provider 07/25/17 10/15/21 Rafaela Shultz MD 46 [facility] Manjit [address] [place] [address] [email or web address] Historical LMR Provider 07/25/17 10/15/21 documented as of this encounter Additional Source Comments The information contained in this document represents components of the legal health record. It is not the complete legal health record.[facility]
--- OUTSIDE RECORDS SUMMARY | 2025-09-08 14:16 | XMS_ITS | Encounter Summary ---
Author Organization [facility] Address [address] [place] [address] Care Team Providers Care Desktop Manager Name Role Phone Physician, Pcp Unknown Primary Care Provider Mary vailable Encounter Details Date Type Department Care Team (Late st Contact Info) Description 09/30/2024 Lab Requisition [facility] - Main Lab [address] [facility] [address] [facility] [place] [address] London Perez MD [address] [facility] 103 [place] [phone] Urinary tract infection, site not specified Social [...] Enterococcus faecalis(A) MIRNA 10/02/2024 11:10 AM EST [facility] Comment: The organism value for [...] MICROBIOLOGY - GENERAL ORDER MIGUEL Final Result [facility] ([facility]) [facility] [address] [place] [address], documented in this encounter Visit Diagnoses Diagnosis Urinary tract infection, site not specified documented in this encounter Care Teams Desktop Manager Relationship Specialty Start Date End Date Physician, Pcp Unknown PCP - General 09/10/24 documented as of this encounter
--- OUTSIDE RECORDS SUMMARY | 2025-09-08 14:16 | XMS_ITS | Encounter Summary ---
Author Organization [facility] Address [address] [facility] [address] [place] [address] Phone Care Team Providers Care Retort Furnace Helper Name Role Phone Hayden Wells MD Unavailable [email or web address] Emily George MD Unavailable [phone] MugPepe MD Unavailable [phone] Pepe [place] MD Primary Care Provider + [phone] Major Whitfield MD Primary Care Provid er Encounter Details Date Type Department Care Team (Late st Contact Info) Description 11/11/2024 Procedure Pass OR Admitting Dept - Virtual Department [address] [place] [address] Social History Tobacco Use Types Packs/Day Years [...] Description 02/17/2026 11:00 AM EDT Office Visit [facility] Rheumatology [address] [place] [address] [place] [address] Emily George MD [address] [place] [address], [address] [place] [address] [email or web address] 02/18/2026 3:00 PM EDT Office Visit [facility] Family Medicine [address] [place] [address] [place] [address] Guera Banks [address] [place] [address], [address] [place] [address] [email or web address] documented as of this encounter Visit Diagnoses Not on filedocumented in this encounter Care Teams Retort Furnace Helper Relationship Specialty Start Date End Date Pepe [place] MD [address] [place] [address] PCP - General Internal Medicine 07/31/17 08/09/25 Major Whitfield MD [address] [place] [address] PCP - General Internal Medicine 08/10/25 Hayden Wells MD [email or web address] Historical LMR Provider 07/25/17 08/16/25 Emily Goerge MD [address] [place] [address], [facility] [address] [place] [address] [email or web address] Historical LMR Provider 07/25/1708/16/25 Pepe [place] MD [address] [place] [address] Historical LMR Provider 07/25/17 documented as of this encounter Additional Source Comments The information contained in this document represents components of the legal health record. It is not the complete legal health record.[facility]
--- OUTSIDE RECORDS SUMMARY | 2025-09-08 14:16 | XMS_ITS | Encounter Summary ---
Author Organization [facility] Address [address] [place] [address] Care Team Providers Care Continuous Wave Operator Name Role Phone Physician, Pcp Unknown Primary Care Provider Mary vailable Encounter Details Date Type Department Care Team (Late st Contact Info) Description 07/24/2025 Lab Requisition [facility] - Main Lab [address] [place] [address] Jak Mcgrath MD [address] [place] [address] Urinary tract infection, site not specified Social [...] Urine No growth 07/25/2025 2:45 PM EDT [facility] Urine Urine specimen from urethra / Unknown 07/24/2025 07/24/2025 5:11 PM EDT us Jak Mcgrath MD LAB MICROBIOLOGY - GENER AL ORDERABLES Final Result [facility] [address] [place], [place] [address] [phone] documented in this encounter Visit Diagnoses Diagnosis Urinary tract infection, site not specified documented in this encounter Care Teams Continuous Wave Operator Relationship Specialty Start Date End Date Physician, Pcp Unknown PCP - General 09/10/24 documented as of this encounter
--- OUTSIDE RECORDS SUMMARY | 2025-09-08 14:16 | XMS_ITS | Encounter Summary ---
Author Organization [facility] Address [address] [place] [address] [place] [address] Phone Care Team Providers Care Blocker Metal Base Name Role Phone Hayden Wells MD Unavailable [email or web address] Charly Gordon MD Unavailable Emily George MD Unavailable Juan Manuel Knox MD Unavailable Raquel Alicea NP Unavailable [phone] Rupinder Vicente MD Unavailable Pepe [place] MD Unavailable [phone] Luis Lopez MD Unavailable [phone] Rafaela Shultz MD Unavailable [phone] Pepe [place] MD Primary Care Provider + [phone] Major Whitfield MD Primary Care Provid er Encounter Details Date Type Department Care Team (Late st Contact Info) Description 11/01/2017 Ancillary Orders [facility], X-Ray - [address] [address] Pepe [place] MD [address] [place] [phone] Right shoulder pain, unspecified chronicity Social History [...] Description 02/17/2026 11:00 AM EDT Office Visit [facility] Rheumatology [address] [place] [address] Emily George MD 22 [facility], [address] [place] [address] [email or web address] 02/18/2026 3:00 PM EDT Office Visit [facility] Family Medicine [address] [place] [address] Guera Banks [address] [facility], [address] [place] [address] [email or web address] documented as of this encounter Results * XR SHOULDER 2 VIEWS (RIGHT) (11/01/2017 7:54 PM EST) Anatomical Region Laterality Modality Shoulder Right Radiographic Akosua ging 11/01/2017 7:51 PM EST Impressions 11/01/2017 8:37 PM EST There may be a small amount of rotator cuff calcific tendinopathy present. No other source of the pain is seen. Ordering physician: Pepe [place] MD POS - [id number] Edited by: Alisha Benton on 11/01/2017 8:07 [...] Ordering physician: Pepe [place] MD POS - [id number] Edited by: Alisha Benton on 11/01/2017 8:07 PM Pepe Adams MD IMG XR UPPER EXTREMITY Fin al Result documented in this encounter Visit Diagnoses Diagnosis Right shoulder pain, unspecified chronicity Right shoulder pain, unspecified chronicity documented in this encounter Care Teams Blocker Metal Base Relationship Specialty Start Date End Date Pepe [place] MD [address] [place] [address] PCP - General Internal Medicine 07/31/17 08/09/25 Major Whitfield MD [address] [place] [address] PCP - General Internal Medicine 08/10/25 Hayden Wells MD [email or web address] Historical LMR Provider 07/25/17 08/16/25 Charly Gordon MD [address] [place] [address], [address] [place] [address] [email or web address] Historical LMR Provider 07/25/17 10/15/21 Emily George MD [address] [place] [address], [address] [place] [address] Historical LMR Provider 07/25/1708/16/25 Juan Manuel Knox MD [address] [place] [address], [address] [place] [address] Historical LMR Provider 07/25/17 10/15/21 Raquel Alicea NP [address] [place] [address] Historical LMR Provider 07/25/17 Rupinder Fierro MD [address] [place] [address] Historical LMR Provider 07/25/17 10/15/21 Pepe [place] MD [address] [place] [address] Historical LMR Provider 07/25/17 Luis Lopez MD [address] [place] [address] Historical LMR Provider 07/25/17 10/15/21 Rafaela Shultz MD [address] [place] [address] [email or web address] Historical LMR Provider 07/25/17 10/15/21 documented as of this encounter Additional Source Comments The information contained in this document represents components of the legal health record. It is not the complete legal health record.[facility]
--- OUTSIDE RECORDS SUMMARY | 2025-09-08 14:16 | XMS_ITS | Encounter Summary ---
Author Organization [facility] Address [address] [place] [address] [place] [address] Phone Care Team Providers Care Alpine Guide Name Role Phone Hayden Wells MD Unavailable [email or web address] Charly Gordon MD Unavailable Emily George MD Unavailable Juan Manuel Knox MD Unavailable Raquel Alicea NP Unavailable [phone] Rupinder Vicente MD Unavailable [facility] City[facility] romano MD Unavailable [phone] Luis Lopez MD Unavailable [phone] Rafaela Shultz MD Unavailable [phone] Pepe [place] MD Primary Care Provider + [phone] Major Whitfield MD Primary Care Provid er Encounter Details Date Type Department Care Team (Late st Contact Info) Description 10/26/2020 Ancillary Orders Virtual Department [address] [place], [place] [phone] Pepe [place] MD [address] [place] [phone] Breast screening Social History Tobacco Use Types [...] Description 02/17/2026 11:00 AM EDT Office Visit [facility] Rheumatology [address] [place] [address] Emily George MD 22 [facility], [address] [place] [address] [email or web address] 02/18/2026 3:00 PM EDT Office Visit [facility] Family Medicine [address] [place] [address] Guera Banks [address] [facility], [address] [place] [address] [email or web address] documented as of this encounter [...] unspecified documented in this encounter Care Teams Alpine Guide Relationship Specialty Start Date End Date Pepe [place] MD [address] [place] [address] PCP - General Internal Medicine 07/31/17 08/09/25 Major Whitfield MD [address] [place] [address] PCP - General Internal Medicine 08/10/25 Hayden Wells MD [email or web address] Historical LMR Provider 07/25/17 08/16/25 Charly Gordon MD [address] [place] [address], [address] [place] [address] [email or web address] Historical LMR Provider 07/25/17 10/15/21 Emily George MD [address] [place] [address], [address] [place] [address] Historical LMR Provider 07/25/1708/16/25 Juan Manuel Knox MD 22 [facility], 2nd [place] [address] Historical LMR Provider 07/25/17 10/15/21 Raquel Alicea NP [address] [place] [address] Historical LMR Provider 07/25/17 2 Rupinder Vicente MD [address] [place] [address] Historical LMR Provider 07/25/17 10/15/21 Pepe Adams MD [address] [place] [address] Historical LMR Provider 07/25/17 Luis Lopez MD [address] [place] [address], [address] [address] Historical LMR Provider 07/25/17 10/15/21 Rafaela Shultz MD [address] [place] [address] [email or web address] Historical LMR Provider 07/25/17 10/15/21 documented as of this encounter Additional Source Comments The information contained in this document represents components of the legal health record. It is not the complete legal health record.[facility]
--- OUTSIDE RECORDS SUMMARY | 2025-09-08 14:16 | XMS_ITS | Encounter Summary ---
Author Organization [facility] Address [address] [place] [phone] Phone Care Team Providers Care Poultry Raiser Name Role Phone Hayden Wells MD Unavailable [email or web address] Emily George MD Unavailable [phone] Mugg, Pepe Abraham MD Unavailable [phone] [facility], Pepe Abraham MD Primary Care Provider Major Whitfield MD Primary Care Provid er Encounter Details Date Type Department Care Team (Latest Contact Info) Description 10/26/2023 Transcribe Orders Virtual Department [address] [place] [address] [facility], Pepe Abraham MD [address] [place] [phone] Post-menopausal (Primary Dx) Social History Tobacco Use [...] with a working camera? Not on file 05 / Comments No Sex and Gender Information Value Date Recorded Sex Assigned at Not on file Legal Sex Female 9:52 PM EDT Gender Identity Not on file Sexual Orientation Not on file documented as of this encounter Plan of Treatment Upcoming Encounters Date Type Department Care Team (Late st Contact Info) Description 02/17/2026 11:00 AM EDT Office Visit [facility] Rheumatology [address] [place] [address] Emily George MD [address], [address] [place] [address] [email or web address] 02/18/2026 3:00 PM EDT Office Visit [facility] Medicine [address] [place] [address] Guera Banks [address] [place] [address] [email or web address] documented as of this encounter Results * BD DXA AXIAL (SPINE) WITH HIP (06/18/2024 1:01 PM EDT) Anatomical Region Laterality Modality Bone Density Bone Density 06/18/2024 1:00 PM EDT Impressions 06/18/2024 1:02 PM EDT Interpretation: Osteopenia. Narrative 06/18/2024 1:02 PM EDT Referred By: PEPE GRIFFIN Scanner: [employer] A with serial# of [id number] located at [facility] Bone Density Scan (DXA) 06/18/24 Details [...] -2.5), or Osteoporosis (T-score <= -2.5). At [facility], T-scores are compared to peak bone [...] - 06/18/2024 Referred By: PEPE GRIFFIN Scanner: [employer] A with serial# of [id number] located at [facility] Bone Density Scan (DXA) 06/18/24 Details of [...] -2.5), or Osteoporosis (T-score <= -2.5). At [facility], T-scores are compared to peak bone [...] (natural) documented in this encounter Care Teams Poultry Raiser Relationship Specialty Start Date End Date Pepe Griffin MD [address] [place] [address] PCP - General Internal Medicine 07/31/17 08/09/25 Major Whitfield MD [address] [place] [id number] PCP - General Internal Medicine 08/10/25 Hayden Wells MD [email or web address] Historical LMR Provider 07/25/17 08/16/25 Emily George MD [address] [place] [address], [address] [address] [email or web address] Historical LMR Provider 07/25/1708/16/25 Pepe Griffin MD [address] [place] [address] Historical LMR Provider 07/25/17 documented as of this encounter Additional Source Comments The information contained in this document represents components of the legal health record. It is not the complete legal health record.[facility]
--- OUTSIDE RECORDS SUMMARY | 2025-09-08 14:16 | XMS_ITS | Clinical Summary ---
Author Organization [facility] Address [address] [place] [address] [place] [phone] Phone Care Team Providers Care Diet Therapist Name Role Phone Major Whitfield MD Primary Care Provid er Allergies No known active allergies Medications omeprazole (PRILOSEC) 40 MG capsule 1 capsule [...] cream Apply topically daily. 11/13/19 23 Active estradioL (ESTRACE) 0.01 % (0.1 mg/gram) [...] needed 90 tablet 1 02/14/20 25 Active cyclobenzaprine (FLEXERIL) 5 MG tabletIndicatio ns:Lumbar facet arthropathy TAKE 1 TABLET (5 MG TOTAL) BY MOUTH NIGHTLY AT BEDTIME NEEDED (MUSCLE SPASM). 90 tablet 07/27/20 25 Active estradioL (VIVELLE-DOT) 0.1 mg/24 hrIndications:O steopenia of multiple sites,Postmenop ausal PLACE 1 PATCH ONTO THE SKIN 2 TIMES A WEEK. 8 patch 2 08/24/20 25 Active LORazepam (ATIVAN) 1 MG tablet 1 tablet tid 025 Discontinued(No longer taking) phenazopyridine (PYRIDIUM) 200 MG tablet Take 1 tablet (200 mg total) by mouth 3 (three) times a day as needed for pain (specific location in comments). 10 tablet 10/06/20 24 025 Discontinued(No longer taking) estradioL (VIVELLE-DOT) 0.1 mg/24 hrIndications:O steopenia of multiple sites,Postmenop ausal Place 1 patch onto the skin 2 (two) times a week. 8 patch 2 06/01/20 25 025 Discontinued Active Problems Problem Noted Date Diagnosed Date Chronic midline low back pain without sciatica 1 10/19/2024 Assessment & Plan (08/19/2025 10:49 AM EST): Continue joint protection, energy conservation. Gentle, regular exercise routine after warm packs for 10-15 minutes-examples of exercises with pictures and detailed instructions printed for home use today. Avoid falls, injuries, overuse, stooping, repetitive bending, heavy lifting, sudden turns. Keep body weight in ideal range for her height. She may benefit from topical cream such as Arnica, Biofreeze, Aspercreme versus medicated patches such as salonpas, icy hot patch 2-3 times daily and if necessary at bedtime x 3 weeks. On statin therapy 02/13/2025 Assessment & Plan (02/15/2025 10:14 PM EDT): Monitor for muscle tenderness, swelling and weakness. Postmenopausal 08/04/2024 Gastroesophageal reflux dise ase with esophagitis without hemorrhage 02/04/2024 Assessment & Plan (08/19/2025 10:33 AM EST): Avoid late, large, spicy meals. Keep headboard elevated at 45 angle for nighttime. Continue Prilosec (omeprazole) 40 mg daily as prescribed. Assessment & Plan (02/15/2025 10:14 PM EDT): [...] nighttime. Tobacco dependence 02/04/2024 Assessment & Plan (08/19/2025 10:39 AM EST): I have spent at least 3 minutes [...] convince her to do it together. Call -800-QUIT -NOW for free services including motivational text messages. Assessment & Plan (08/04/2024 11:55 AM EDT): [...] convince her to do it together. Call QUIT for free services including motivational text messages. [...] her to do it together. Call -QUIT - for free services including motivational text messages. Need for immunization against influenza 06/23/20 22 Undifferentiated connective tissue disease 12/21 Assessment & Plan (08/19/2025 10:33 AM EST): I have explained to Romy that based on the labs from 08/26/2021 she has isolated positive FATOUMATA that does not confirm any diagnosis however puts her at risk for developing one of the systemic rheumatic diseases associated with positive FATOUMATA at some point in the future. More specific immunologic tests all returned negative including Alicea, SUSTAINABLE AGRICULTURE FACULTY, SSA, SSB and dsDNA antibodies I previously [...] let me know the name of her package liner to write letter asking about possible contraindications [...] screenings and preventive strategies. Assessment & Plan (02/15/2025 10:12 PM EDT): I have explained to Romy that based on the labs from 08/26/2021 she has isolated positive FATOUMATA that does not confirm any diagnosis however puts her at risk for developing one of the systemic rheumatic diseases associated with positive FATOUMATA at some point in the future. More specific immunologic tests all returned negative including Alicea, SUSTAINABLE AGRICULTURE FACULTY, SSA, SSB and dsDNA antibodies I previously [...] let me know the name of her package liner to write letter asking about possible contraindications [...] immunologic tests all returned negative including Alicea, SUSTAINABLE AGRICULTURE FACULTY, SSA, SSB and dsDNA antibodies I previously [...] let me know the name of her package liner to write letter asking about possible contraindications [...] let me know the name of her package liner to write letter asking about possible contraindications [...] let me know the name of her package liner to write letter asking about possible contraindications [...] let me know the name of her package liner to write letter asking about possible contraindications [...] let me know the name of her package liner to write letter asking about possible contraindications [...] let me know the name of her package liner to write letter asking about possible contraindications [...] NSAID long-term use 08/26/2021 Assessment & Plan (08/19/2025 10:33 AM EST): Take the lowest dose, with least frequency, for shortest time. Remember to take it always with food. Favor topical over oral preparations. Assessment & Plan (02/13/2025 3:29 PM EDT): [...] or alopecia. Osteopenia 08/19/2019 Assessment & Plan (08/19/2025 10:33 AM EST): According to most recent BMD from 06/18/2024 at [facility] there is osteopenia particularly within R femoral neck not significantly changed comparing to prior study from 2016 and 2019. Continue fall and fracture prevention strategies. Proper calcium and vitamin D supplementation and daily weightbearing exercises. Assessment & Plan (02/15/2025 10:13 PM EDT): According to most recent BMD from 06/18/2024 at [facility] there is osteopenia particularly within R femoral neck not significantly changed comparing to prior study from 2017 and 2020. Continue fall and fracture prevention strategies. Proper calcium and vitamin D supplementation and daily weightbearing exercises. Assessment & Plan (08/04/2024 11:09 AM EDT): According to most recent BMD from October 2019 at [facility] there is osteopenia not significantly changed comparing to prior study from 2017. Continue fall and fracture prevention strategies. Proper calcium and vitamin D supplementation and daily weightbearing exercises. Assessment & Plan (02/04/2024 2:04 PM EDT): According to most recent BMD from October 2019 at [facility] there is osteopenia not significantly changed comparing to prior study from 2017. Continue fall and fracture prevention strategies. Proper calcium and vitamin D supplementation and daily weightbearing exercises. Assessment & Plan (12/21/2021 10:55 AM EDT): According to most recent BMD from October 2019 at [facility] there is osteopenia not significantly changed comparing to prior study from 2017. Continue fall and fracture prevention strategies. Proper calcium and vitamin D supplementation and daily weightbearing exercises. Assessment & Plan (09/15/2021 8:59 PM EST): According to most recent BMD from October 2019 at [facility] there is osteopenia not [...] hospital encounter of 11/03/19 (from the past 51679 hour(s)) DXA Monitoring Addendum: 12/22/2019 This is [...] hospital encounter of 11/03/19 (from the past 59219 hour(s)) DXA Monitoring Narrative This is a [...] to autoimmune disease 09/05/2018 Assessment & Plan (08/19/2025 10:33 AM EST): Continue proper hydration, diligent mouth hygiene and regular dental checkups and cleanings. Use moisturizing mouthwash, toothpaste and sugar-free lozenges. Remain on Evoxac as prescribed. Assessment & Plan (02/13/2025 3:29 PM EDT): [...] drafts. Use OTC eyedrops as needed. See package liner at least every 12 months or earlier [...] tears and having regular visits to the package liner and if absolutely necessary a trial of [...] of this 28-minute visit was spent in [id number] conversation with the patient going over the [...] Avoid OTC NSAIDs. Sacroiliitis, not elsewhere classified Assessment & Plan (02/15/2025 10:12 PM EDT): [...] Encounters Date Type Department Care Team Description 08/21/2025 Refill [facility] Rheumatology [address] [place] [address] [place] [address] Emily George MD Medication Refill 08/20/2025 Telephone [facility] Rheumatology [address] [place] [address] Emily George MD referral to [facility] 08/19/2025 10:45 AM EST - 08/19/2025 11:59 PM EST Hospital Encounter [facility], X-Ray - [address] [place] [address] Emily George MD Discharge Disposition: Home or Self Care 08/19/2025 10:00 AM EST Office Visit [facility] Rheumatology [address] [place] [address] [address] [place] [address] Emily George MD Undifferentiated connective tissue disease (Primary Dx); 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; Osteopenia of multiple sites; NSAID long-term use; Gastroesophageal reflux disease with esophagitis without hemorrhage; Chronic midline low back pain without sciatica; Tobacco dependence 08/10/[address] [place] [address] Emily George MD 07/26/2025 Refill [facility] Rheumatology [address] [place] [address] [place] [address] Emily George MD Medication Refill 06/18/2025 11:54 AM EDT - 06/18/2025 11:59 PM EDT Hospital Encounter [facility] [address] [place] [address] London Perez MD Discharge Disposition: Home or Self Care 06/18/2025 Transcribe Orders [facility] [address] [place] [address] London Perez MD Dysuria (Primary Dx) from Last 3 Months Immunizations Immunization Administration [...] Sign Reading Time Taken Comments Blood Pressure 160/82 08/19/2025 9:48 AM EST Pulse 68 08/19/2025 9:48 AM EST Temperature 36 C (96.8 F) 11/11/2024 12:00 PM EST Respiratory Rate 32 11/11/2024 12:15 PM EST Oxygen Saturation 98% 08/19/2025 9:48 AM EST Inhaled Oxygen Concentration - - Weight 62.1 kg (137 lb) 08/19/2025 9:48 AM EST Height 160 cm (5' 3 ) 02/13/2025 3:11 PM EDT Body Mass Index 24.27 02/13/2025 3:11 PM EDT Plan of Treatment Upcoming Encounters Date Type Department Care Team (Late st Contact Info) Description 02/17/2026 11:00 AM EDT Office Visit [facility] Rheumatology [address] [place] [address] Emily George MD [address] [facility], [address] [place] [address] [email or web address] 02/18/2026 3:00 PM EDT [facility] [address] [place] [address] Guera Banks [address], [address] [place] [address] [email or web address] Health Maintenance Due Date Last [...] VACCINE ( - season) 2025 BLOOD PRESSURE 02/16/2026 08/19/2025 MAMMOGRAM 07/25/2026 07/25/2024, 07/0 12/2022, 04/05/2022, Additional [...] Procedure Name Priority Date/Time Associated Diagnosis Comments TOTAL PROTEIN CREATININE RATIO, RANDOM URINE Routine 08/19/2025 11:43 AM EST 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 NSAID long-term use CBC AND DIFFERENTIAL Routine 08/19/2025 11:30 AM EST 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 NSAID long-term use MONOCLONAL PROTEIN STUDY, QUANTITATIVE Routine 08/19/2025 11:30 AM EST 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 NSAID long-term use CREATINE KINASE (CK) Routine 08/19/2025 11:30 AM EST 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 NSAID long-term use COMPLEMENT C4 Routine 08/19/2025 11:30 AM EST 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 NSAID long-term use COMPLEMENT C3 Routine 08/19/2025 11:30 AM EST 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 NSAID long-term use CBC AND DIFFERENTIAL Routine 08/19/2025 11:30 AM EST 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 NSAID long-term use SEDIMENTATION RATE (ESR) Routine 08/19/2025 11:30 AM EST 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 NSAID long-term use C-REACTIVE PROTEIN (CRP) Routine 08/19/2025 11:30 AM EST 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 NSAID long-term use COMPREHENSIVE METABOLIC PANEL (CMP) Routine 08/19/2025 11:30 AM EST 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 Total Protein, Urine 8.9 <=13.5 mg/dL 08/19/2025 4:48 PM EST [facility] Creatinine, Urine 41 mg/dL 025 4:48 PM EST [facility] Urine (Urine, Voided) Non-Blood Collection / Unknown 08/19/2025 11:43 AM EST 08/19/2025 11:43 AM EST [facility] - 08/19/2025 4:48 PM EST The reference interval(s) are unavailable for this specimen type. Comparison of this result with other laboratory results, such as the concentration in the blood, serum, or plasma, is recommended. The test result should be integrated into the clinical context for interpretation. us Emily George MD LAB URINE ORDERABLES Fin al Result [facility] [address] [place] [address] * (ABNORMAL) Comprehensive Metabolic Panel (CMP) (08/19/2025 11:30 AM EST) Sodium 140 136 - 145 mmol/L 08/19/2025 4:35 PM [facility] Potassium 4.5 3.4 - 5.1 mmol/L 08/19/2025 4:35 PM [facility] Chloride 104 98 - 107 mmol/L 08/19/2025 4:35 PM [facility] CO2 27 20 - 31 mmol/L 08/19/2025 4:35 PM [facility] Anion Gap 9 3 - 17 mmol/L 08/19/2025 4:35 PM [facility] BUN 17 6 - 23 mg/dL 08/19/2025 4:35 PM [facility] Creatinine 0.50 0.50 - 1.00 mg/dL 08/19/2025 4:35 PM [facility] eGFR 103 >59 mL/min/1.7 3m2 08/19/2025 4:35 PM [facility] Comment:Estimated glomerular filtration rate calculated using the CKD-EPI refit equation. Glucose 101(H) 70 - 99 mg/dL 08/19/2025 4:35 PM [facility] Calcium 9.5 8.5 - 10.5 mg/dL 08/19/2025 4:35 PM [facility] AST 27 <33 U/L 08/19/2025 4:35 PM [facility] ALT 28 <34 U/L 08/19/2025 4:35 PM [facility] Alkaline Phosphatase 126 40 - 130 U/L 08/19/2025 4:35 PM [facility] Bilirubin, Total 0.2 0.0 - 1.2 mg/dL 08/19/2025 4:35 PM [facility] Total Protein 6.7 6.4 - 8.3 g/dL 08/19/2025 4:35 PM [facility] Albumin 4.2 3.5 - 5.2 g/dL 08/19/2025 4:35 PM [facility] Globulin 2.5 1.9 - 4.1 g/dL 08/19/2025 4:35 PM [facility] Blood (Blood) Venipuncture / Unknown 08/19/2025:30 AM EST 08/19/2025 11:30 AM EST us Emily George MD LAB BLOOD BKR ORDERABLES Final Result [facility] [address] [place] [address] * (ABNORMAL) Monoclonal Protein Study, Quantitative (08/19/2025 11:30 AM EST) M-Protein GK DNR 08/24/2025 11:48 AM EST [facility] M-Protein GL DNR 08/24/2025 11:48 AM EST [facility] M-Protein AK DNR 08/24/2025 11:48 AM EST [facility] M-Protein AL DNR 08/24/2025 11:48 AM EST [facility] M-Protein MK DNR 08/24/2025 11:48 AM EST [facility] M-Protein ML DNR 08/24/2025 11:48 AM EST [facility] Glycosylation DNR 08/24/2025 11:48 AM EST [facility] Flag, M-Protein Isotype Negative Negative 08/24/2025 11:48 AM EST [facility] QMPTS Interpretation SEE COMMENTS 08/24/2025 11:48 AM EST [facility] Comment: RESULT: No monoclonal protein detected. ADDITIONAL INFORMATION The submitted sample was assayed by five separate immunopurifications for IgG, IgA, IgM, kappa and lambda. The result reflects the findings of either no monoclonal protein detected or those monoclonal immunoglobulins that were detected. This test was developed and its performance characteristics determined by [facility] in a manner consistent with CLIA requirements. This test has not been cleared or approved by the U.S. Food and Drug Administration. Immunoglobulin A (IgA), S 163 61 - 356 mg/dL 08/24/2025 11:48 AM EST [facility] Immunoglobulin M (IgM), S 44 37 - 286 mg/dL 08/24/2025 11:48 AM EST [facility] Immunoglobulin G (IgG), S 646(L) 767 - 1590 mg/dL 08/24/2025 11:48 AM EST [facility] Therapeutic Antibody Administered? Unknown 08/24/2025 11:48 AM EST [facility] Blood (Blood) Venipuncture / Unknown 08/19/2025 11:30 AM EST 08/19/2025 11:30 AM EST us Emily George MD LAB BLOOD BKR ORDERABLES Final Result [facility]STAN (BEAKER) [facility] [address] [id number], [facility] [phone] * CBC and Differential (08/19/2025 11:30 AM EST) WBC 7.27 4.00 - 11.00 K/uL 08/19/2025 4:08 PM [facility] RBC 4.18 4.00 - 5.20 M/uL 08/19/2025 4:08 PM [facility] Hemoglobin 12.8 12.0 - 16.0 g/dL 08/19/2025 4:08 PM [facility] Hematocrit 38.8 36.0 - 46.0 % 08/19/2025 4:08 PM [facility] MCV 92.8 80.0 - 100.0 fL 08/19/2025 4:08 PM [facility] MCH 30.6 27.0 - 31.0 pg 08/19/2025 4:08 PM [facility] MCHC 33.0 32.0 - 36.0 g/dL 08/19/2025 4:08 PM [facility] MPV 10.6 8.4 - 12.0 fL 08/19/2025 4:08 PM [facility] RDW-CV 12.4 11.5 - 14.5 % 08/19/2025 4:08 PM [facility] PLT 301 150 - 450 K/uL 08/19/2025 4:08 PM [facility] Neutrophils 61.9 % 08/19/2025 4:08 PM [facility] Lymphocytes 23.2 % 08/19/2025 4:08 PM [facility] Monocytes 8.3 % 08/19/2025 4:08 PM [facility] Eosinophils 5.4 % 08/19/2025 4:08 PM [facility] Basophils 0.8 % 08/19/2025 4:08 PM [facility] Imm Grans 0.4 % 08/19/2025 4:08 PM [facility] NRBC 0.0 <=0.0 /100 WBCs 08/19/2025 4:08 PM [facility] Absolute Neutrophils 4.50 1.92 - 7.60 K/uL 08/19/2025 4:08 PM [facility] Absolute Lymphocytes 1.69 0.72 - 4.10 K/uL 08/19/2025 4:08 PM [facility] Absolute Monocytes 0.60 0.16 - 1.10 K/uL 08/19/2025 4:08 PM [facility] Absolute Eosinophils 0.39 0.00 - 0.50 K/uL 08/19/2025 4:08 PM [facility] Absolute Basophils 0.06 0.00 - 0.15 K/uL 08/19/2025 4:08 PM [facility] Absolute Imm Grans 0.03 0.00 - 0.09 K/uL 08/19/2025 4:08 PM [facility] Absolute NRBC 0.00 <=0.00 K cells/uL 08/19/2025 4:08 PM [facility] Absolute Neutrophils 4.50 1.92 - 7.60 K/uL 08/19/2025 4:08 PM [facility] Comment:Automated cell count . Manual ANC may differ if performed. Diff Type Auto 08/19/2025 4:08 PM [facility] Blood (Blood) Venipuncture / Unknown 08/19/2025 11:30 AM EST 08/19/2025 11:30 AM EST us Emily George MD LAB BLOOD BKR ORDERABLES Final Result Performing Organization Address [facility]/ZIP Co de Phone Number [address] [address] * Erythrocyte Sedimentation Rate (ESR) (08/19/2025 11:30 AM EST) ESR 10 0 - 30 mm/h 08/19/2025 4:28 PM EST [facility] Blood (Blood) Venipuncture / Unknown 08/19/2025 11:30 AM EST 08/19/2025 11:30 AM EST us Emily George MD LAB BLOOD BKR ORDERABLES Final Result Performing Organization Address [facility] Co de Phone Number [address] [address] * Complement C3 (08/19/2025 11:30 AM EST) C3 149 81 - 157 mg/dl 08/21/2025 12:41 PM EST [facility] Blood (Blood) Venipuncture / Unknown 08/19/2025 11:30 AM EST 08/19/2025 11:30 AM EST us Emily George MD LAB BLOOD BKR ORDERABLES Final Result Performing Organization Address [facility]/ZIP Co de Phone Number [address] [address] * Complement C4 (08/19/2025 11:30 AM EST) C4 33 12 - 39 mg/dL 08/21/2025 12:41 PM EST [facility] Blood (Blood) Venipuncture / Unknown 08/19/2025 11:30 AM EST 08/19/2025 11:30 AM EST us Emily George MD LAB BLOOD BKR ORDERABLES Final Result Performing Organization Address [facility]/ZIP Co de Phone Number [address] [address] * C-Reactive Protein (CRP) (08/19/2025 11:30 AM EST) C Reactive Protein <3.0 <10.0 mg/L 08/19/2025 4:35 PM EST [facility] Comment:NOTE: This reference range is for the evaluation of inflammation. Order CRP, High Sensitivity for cardiac risk status evaluation. Blood (Blood) Venipuncture / Unknown 08/19/2025 11:30 AM EST 08/19/2025 11:30 AM EST us Emily George MD LAB BLOOD BKR ORDERABLES Final Result Performing Organization Address [facility]/ZIP Co de Phone Number [address] [address] * Creatine Kinase (CK) (08/19/2025 11:30 AM EST) Creatine Kinase (CK) 103 26 - 192 U/L 08/19/2025 4:35 PM EST [facility] Blood (Blood) Venipuncture / Unknown 08/19/2025 11:30 AM EST 08/19/2025 11:30 AM EST us Emily George MD LAB BLOOD BKR ORDERABLES Final Result Performing Organization Address [facility]/ZIP Co de Phone Number [address] [address] * XR LUMBOSACRAL SPINE 2-3 VIEWS (08/19/2025 10:59 AM EST) Anatomical Region Laterality Modality L-spine Computed Radiogr aphy 08/20/2025 10:2 4 AM EST Impressions 08/20/2025 10:30 AM EST 1. 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 2. Discovertebral degenerative changes of the lumbar spine with severe L4-5 disc space narrowing. Narrative 08/20/2025 10:30 AM EST XR LUMBOSACRAL SPINE 2-3 VIEWS Referring clinician's provided indication for this examination in Epic: Pain COMPARISON: None. FINDINGS: We are going to assume that there are rudimentary ribs at T12. Sacralization of L5. 7 mm anterolisthesis of L4 over L5. Normal vertebral body heights. Minimal multilevel marginal anterior osteophytes. Severe L4-5 disc space narrowing with endplate sclerosis. Lower lumbar facet arthropathy. Mild degenerative changes of the bilateral sacroiliac joints. Suboptimal evaluation of the sacrum due to overlying bowel gas. Calcification within the left hemipelvis, likely a calcified fibroid. Procedure Note Juan Manuel Dee MD - 08/20/2025 XR LUMBOSACRAL SPINE 2-3 VIEWS Referring clinician's provided indication for this examination in [facility]:Pain COMPARISON: None. FINDINGS: We are going to assume that there are rudimentary ribs at T12.Sacralization of L5. 7 mm anterolisthesis of L4 over L5. Normal vertebralbody heights. Minimal multilevel marginal anterior osteophytes. SevereL4-5 disc space narrowing with endplate sclerosis. Lower lumbar facetarthropathy. Mild degenerative changes of the bilateral sacroiliac joints.Suboptimal evaluation of the sacrum due to overlying bowel gas.Calcification within the left hemipelvis, likely a calcified fibroid. IMPRESSION: 1. 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 2. Discovertebral degenerative changes of the lumbar spine with severeL4-5 disc space narrowing. us Emily George MD IMG XR SPINE Final Re sult * (ABNORMAL) Urine Culture (06/18/2025 12:11 PM EDT) Special Requests None 06/18/2025 12:11 PM EDT [facility] Urine Culture 10,000 to 100,000 colony forming units per mL KLEBSIELLA PNEUMONIAE(A) 06/20/2025 10:40 AM EDT [facility] Urine (Urine) 06/18/2025 12: 11 PM [...] 1: Resistant Klebsiella pneumoniae Extended Spectrum B-lactamase AR C METHOD Negative Klebsiella pneumoniae Gentamicin MIRNA METHOD <=1: Susceptible Klebsiella pneumoniae Levofloxacin MIRNA METHOD 4: Resistant Klebsiella pneumoniae Nitrofurantoin MIRNA METHOD 256: Resistant Klebsiella pneumoniae Piperacillin-tazobactam MIRNA METH OD 8: Susceptible Klebsiella pneumoniae Trimethoprim/sulfamethoxazole AR C METHOD <=20: Susceptible Klebsiella pneumoniae Cefazolin(urine) MIRNA METHOD 4: Susceptible Comment: London Perez MD LAB MICROBIOLOGY CULTURE ORDERA BLES Final Result [address] [address] * BI MAMMOGRAM SCREENING WITH TOMOSYNTHESIS WITH [...] PM EDT Referred By: MALENA ADAMS Scanner: DoYouRemember A with serial# of [id number] located at [facility] Bone Density Scan (DXA) 06/18/24 Details of [...] or Osteoporosis (T-score <= -2.5). At [facility], T-scores are compared to peak bone density [...] - 06/18/2024 Referred By: MALENA ADAMS Scanner: DoYouRemember A with serial# of [id number] located at [facility] Bone Density Scan (DXA) 06/18/24 Details [...] or Osteoporosis (T-score <= -2.5). At [facility], T-scores are compared to peak bone density [...] MD on 06/18/2024 13:02:49 IMPRESSION: Interpretation: Osteopenia. Malena Adams MD IMG BD BONE DENSITY DEXA F inal Result * TSH with reflex (08/26/2021 12:47 PM EST) TSH 1.12 0.27 - 4.20 uIU/mL [facility] Blood 08/26/2021 12:4 7 PM EST 08/26/2021 12:49 PM EST us Emily George MD LAB BLOOD BKR ORDERABLES Final Result [address] [address] * Hepatitis C antibody, qualitative (08/07/2018 12:29 PM EDT) HCV Negative Negative [facility] Comment: This is a screening test and should be confirmed with molecular testing Blood 08/07/2018 12:2 9 PM EDT 08/07/2018 12:32 PM EDT us Hayden Wells MD LAB BLOOD BKR ORDERABLES F inal Result Performing Organization Address City/Special Care Hospital/ZIP Co de Phone Number [address] [address] from Last 3 Months or Most Recently Relevant to Health Maintenance Insurance [employer] HMO POS EPO AETNA HMO POS EPO [address] [place], [place] [id number] POS EPO AETNA O POS EPO AETNA O POS EPO AETNA O POS EPO AETNA O POS EPO AETNA O POS EPO AETNA O POS EPO Care Teams Diet Therapist Relationship Specialty Start Date End Date Major Whitfield MD [address] [place] [address] PCP - General Internal Medicine 08/10/25 Additional Source Comments The information contained in this document represents components of the legal health record. It is not the complete legal health record.[facility]
--- OUTSIDE RECORDS SUMMARY | 2025-09-08 14:16 | XMS_ITS | Encounter Summary ---
Author Organization [facility] Address [address] [place] [address] Care Team Providers Care Full Stack Web Developer Name Role Phone Physician, Pcp Unknown Primary Care Provider Mayr vailable Encounter Details Date Type Department Care Team (Late st Contact Info) Description 09/10/2024 Lab Requisition [facility] - Main Lab [address] [facility] [place] [address] Ashanti Ramos PA [address] [facility] [address] [place] [address] Dysuria Social History Tobacco Use Types Packs/Day [...] if clinically indicated. 09/10/2024 11:[address] [facility] Other Topography unknown / Unknown 09/09/2024 09/10/2024 11:11 AM EST us Ashanti CRUZ LAB MICROBIOLOGY - GENERAL ORDER MIGUEL Final Result [facility] [address] [place] [address], documented in this encounter Visit Diagnoses Diagnosis Dysuria documented in this encounter Care Teams Full Stack Web Developer Relationship Specialty Start Date End Date Physician, Pcp Unknown PCP - General 09/10/24 documented as of this encounter
--- OUTSIDE RECORDS SUMMARY | 2025-09-08 14:16 | XMS_ITS | Encounter Summary ---
Author Organization [facility] Address [address] [facility] [address] [place] [address] Phone Care Team Providers Care Solidworks Designer Name Role Phone Hayden Wells MD Unavailable [email or web address] [email or web address] Emily George MD Unavailable [phone] MugPepe MD Unavailable [phone] Pepe Adams MD Primary Care Provider + [phone] Major Whitfield MD Primary Care Provid er Encounter Details Date Type Department Care Team (Late st Contact Info) Description 10/06/2024 Procedure Pass OR Admitting Dept - Virtual Department [address] [place] [address] Social History Tobacco Use Types Packs/Day Years [...] Description 02/17/2026 11:00 AM EDT Office Visit [facility] Rheumatology [address] [place] [address] [place] [address] Emily George MD [address] [place] [address], [address] [place] [address] [email or web address] 02/18/2026 3:00 PM EDT Office Visit [facility] Family Medicine [address] [place] [address] [place] [address] Guera Banks [address] [place] [address], [address] [place] [address] [email or web address] documented as of this encounter Visit Diagnoses Not on filedocumented in this encounter Care Teams Solidworks Designer Relationship Specialty Start Date End Date Pepe Adams MD [address] [place] [address] PCP - General Internal Medicine 07/31/17 08/09/25 Major Whitfield MD [address] [place] [address] PCP - General Internal Medicine 08/10/25 Hayden Wells MD [email or web address] Historical LMR Provider 07/25/17 08/16/25 Emily George MD [address] [place] [address], [facility] [address] [place] [address] [email or web address] Historical LMR Provider 07/25/1708/16/25 Pepe Adams MD [address] [place] [address] Historical LMR Provider 07/25/17 documented as of this encounter Additional Source Comments The information contained in this document represents components of the legal health record. It is not the complete legal health record.[facility]
--- OUTSIDE RECORDS SUMMARY | 2025-09-08 14:16 | XMS_ITS | Encounter Summary ---
Author Organization [facility] Address [address] [facility] [address] [place] [address] Phone Care Team Providers Care Spike Maker Name Role Phone Hayden Wells MD Unavailable [email or web address] Emily George MD Unavailable [phone] MugPepe MD Unavailable [phone] Pepe Adams MD Primary Care Provider + [phone] Major Whitfield MD Primary Care Provid er Encounter Details Date Type Department Care Team (Latest Contact Info) Description 12/21/2021 Transcribe Orders Virtual Department [address] [place] [address] Emily George MD [address] [facility], [address] [place] [address] [email or web address] Breast screening (Primary Dx) Social History [...] Description 02/17/2026 11:00 AM EDT Office Visit [facility] Rheumatology [address] [place] [address] Emily George MD [address] [facility], [address] [place] [address] [email or web address] 02/18/2026 3:00 PM EDT Office Visit [facility] [address] [place] [address] Guera Banks [address] [facility], [address] [place] [address] [email or web address] documented as of this encounter [...] which could obscurea lesion on mammography. us mEily George MD IMG MG EXAMS Final Re sult documented in this encounter Visit Diagnoses Diagnosis Breast screening- Primary Breast screening, unspecified Breast screening Breast screening, unspecified documented in this encounter Care Teams Spike Maker Relationship Specialty Start Date End Date Pepe Adams MD [address] [place] [address] PCP - General Internal Medicine 07/31/17 08/09/25 Major Whitfield MD [address] [place] [address] PCP - General Internal Medicine 08/10/25 Hayden Wells MD [email or web address] Historical LMR Provider 07/25/17 08/16/25 Emily George MD [address] [place] [address], [address] [place] [address] [email or web address] Historical LMR Provider 07/25/1708/16/25 Pepe Adams MD [address] [place] [address] Historical LMR Provider 07/25/17 documented as of this encounter Additional Source Comments The information contained in this document represents components of the legal health record. It is not the complete legal health record.[facility]
--- OUTSIDE RECORDS SUMMARY | 2025-09-08 14:16 | XMS_ITS | Encounter Summary ---
Author Organization [facility] Address [address] [place] [address] [place] [address] Phone Care Team Providers Care Chemical Dependency Nurse Name Role Phone Hayden Wells MD Unavailable [email or web address] [email or web address] Charly [place] MD Unavailable Emily George MD Unavailable Juan Manuel Knox MD Unavailable Raquel Alicea NP Unavailable [phone] Rupinder Vicente MD Unavailable [facility] rom[facility] MD Unavailable [phone] Luis Lopez MD Unavailable [phone] Rafaela Shultz MD Unavailable [phone] Pepe Adams MD Primary Care Provider + [phone] Major Whitfield MD Primary Care Provid er Encounter Details Date Type Department Care Team (Late st Contact Info) Description 08/23/2018 Ancillary Orders Virtual Department [address] [place], [place] [phone] Pepe Adams MD [address] [place] [id number] Breast screening Social History Tobacco Use Types [...] Description 02/17/2026 11:00 AM EDT Office Visit [facility] Rheumatology [address] [place] [address] Emily George MD [address] [facility], [address] [place] [address] [email or web address] 02/18/2026 3:00 PM EDT Office Visit [facility] Family Medicine [address] [place] [address] Guera Banks [address] [facility], [address] [place] [address] [email or web address] documented as of this encounter [...] Images interpreted in conjunction with R-2 Image Bookkeeping Machine Mechanic computer-aided detection (CAD). FINDINGS: BREAST DENSITY: There [...] unspecified documented in this encounter Care Teams Chemical Dependency Nurse Relationship Specialty Start Date End Date Pepe Adams MD [address] [place] [address] PCP - General Internal Medicine 07/31/17 08/09/25 Major Whitfield MD [address] [place] [address] PCP - General Internal Medicine 08/10/25 Hayden Wells MD [email or web address] Historical LMR Provider 07/25/17 08/16/25 Charly [place] MD [address] [place] [address], [address] [address] Historical LMR Provider 07/25/17 10/15/21 Emily George MD [address] [place] [address], [address] [address] Historical LMR Provider 07/25/1708/16/25 Juan Manuel Knox MD [address] [place] [address], 2[address] [place] [address] Historical LMR Provider 07/25/17 10/15/21 Raquel Alicea NP [address] [place] [address] Historical LMR Provider 07/25/17 2 Rupinder Vicente MD [address] [place] [address] Historical LMR Provider 07/25/17 10/15/21 Pepe Adams MD [address] [place] [address] Historical LMR Provider 07/25/17 Luis Lopez MD [address] [place] [address] [email or web address] Historical LMR Provider 07/25/17 10/15/21 Rafaela Shultz MD [address] [place] [address] [email or web address] Historical LMR Provider 07/25/17 10/15/21 documented as of this encounter Additional Source Comments The information contained in this document represents components of the legal health record. It is not the complete legal health record.[facility]
--- OUTSIDE RECORDS SUMMARY | 2025-09-08 14:16 | XMS_ITS | Encounter Summary ---
Author Organization [facility] Address [address] [place] [address] Care Team Providers Care Specialty Sales Consultant Name Role Phone Physician, Pcp Unknown Primary Care Provider Mary vailable Encounter Details Date Type Department Care Team (Late st Contact Info) Description 07/31/2025 Lab Requisition [facility] - Main Lab [address] [facility] [place] [address] Mitch Motley PA [address] [facility] [address] [place] [address] Pyuria Social History Tobacco Use Types Packs/Day [...] ssp pneumoniae(A) MIRNA 08/02/2025 8:10 AM EDT [facility] ([facility] Comment: This is an edited [...] MICROBIOLOGY - GENERAL ORDER MIGUEL Final Result [facility] ([facility]) [facility] [address] [place] [address], [place] [phone] documented in this encounter Visit Diagnoses Diagnosis Pyuria Other nonspecific finding on examination of urine documented in this encounter Care Teams Specialty Sales Consultant Relationship Specialty Start Date End Date Physician, Pcp Unknown PCP - General 09/10/24 documented as of this encounter
--- OUTSIDE RECORDS SUMMARY | 2025-09-08 14:16 | XMS_ITS | Encounter Summary ---
Author Organization [facility] Address [address] [place] [address] [place] [address] Phone Care Team Providers Care Medical Delivery Technician Name Role Phone Hayden Wells MD Unavailable [email or web address] Charly [place] MD Unavailable Emily George MD Unavailable [phone] Juan Manuel Knox MD Unavailable [phone] Raquel Alicea NP Unavailable [phone] Rupinder Vicente MD Unavailable [facility] rom[facility] MD Unavailable [phone] Luis Lopez MD Unavailable [phone] Rafaela Shultz MD Unavailable [phone] Pepe Adams MD Primary Care Provider + [phone] Major Whitfield MD Primary Care Provid er Encounter Details Date Type Department Care Team (Late Contact Info) Description 10/25/2017 Procedure Pass [address] [address] Social History Tobacco Use Types Packs/Day Years [...] 02/17/2026 11:00 AM EDT Office Visit [facility] Rheumatology [address] [place] [address] [place] [address] Emily George MD [address] [place] [address], [address] [place] [address] [email or web address] 02/18/2026 3:00 PM EDT Office Visit [facility] Family Medicine [address] [place] [address] [place] [address] Guera Banks [address] [place] [address], [address] [place] [address] [email or web address] documented as of this encounter Visit Diagnoses Not on filedocumented in this encounter Care Teams Medical Delivery Technician Relationship Specialty Start Date End Date Pepe Adams MD [address] [place] [address] PCP - General Internal Medicine 07/31/17 08/09/25 Major Whitfield MD [address] [place] [address] PCP - General Internal Medicine 08/10/25 Hayden Wells MD [email or web address] Historical LMR Provider 07/25/17 08/16/25 Charly [place] MD [address] [place] [address], [address] [place] [address] Historical LMR Provider 07/25/17 10/15/21 Emily George MD [address] [place] [address], [address] [place] [address] Historical LMR Provider 07/25/1708/16/25 Juan Manuel Knox MD [address] [facility], [address] [place] [address] Historical LMR Provider 07/25/17 10/15/21 Raquel Alicae NP [address] [place] [address] Historical LMR Provider 07/25/17 2 Rupinder Vicente MD [address] [place] [address] Historical LMR Provider 07/25/17 10/15/21 Pepe Adams MD [address] [place] [address] Historical LMR Provider 07/25/17 Luis Lopez MD [address] [place] [address], [address] [address] Historical LMR Provider 07/25/17 10/15/21 Rafaela Shultz MD [address] [place] [address] [email or web address] Historical LMR Provider 07/25/17 10/15/21 documented as of this encounter Additional Source Comments The information contained in this document represents components of the legal health record. It is not the complete legal health record.[facility]
--- OUTSIDE RECORDS SUMMARY | 2025-09-08 14:16 | XMS_ITS | Encounter Summary ---
Author Organization [facility] Address [address] [facility] [address] [place] [address] Phone Care Team Providers Care Education Counselor Name Role Phone Hayden Wells MD Unavailable [email or web address] [email or web address] Emily George MD Unavailable [phone] Pepe Adams MD Unavailable [phone] Major Whitfield MD Primary Care Provid er Encounter Details Date Type Department Care Team (Late st Contact Info) Description 08/10/2025 Telephone [facility] Rheumatology [address] [place] [address] Emily George MD [address] [facility], [address] [place] [address] [email or web address] Social History Tobacco Use Types Packs/Day Years [...] Description 02/17/2026 11:00 AM EDT Office Visit [facility] Rheumatology [address] [place] [address] Emily George MD [address] [place] [address], [address] [place] [address] [email or web address] 02/18/2026 3:00 PM EDT Office Visit [facility] Family Medicine [address] [place] [address] Guera Banks [address] [place] [address], [address] [place] [address] [email or web address] documented as of this encounter Visit Diagnoses Not on filedocumented in this encounter Care Teams Education Counselor Relationship Specialty Start Date End Date Major Whitfield MD [address] [place] [address] PCP - General Internal Medicine 08/10/25 Hayden Wells MD [email or web address] Historical LMR Provider 07/25/17 08/16/25 Emily George MD [address] [facility], [address] [place] [address] [email or web address] Historical LMR Provider 07/25/1708/16/25 Pepe Adams MD [address] [place] [address] Historical LMR Provider 07/25/17 documented as of this encounter Additional Source Comments The information contained in this document represents components of the legal health record. It is not the complete legal health record.[facility]
--- OUTSIDE RECORDS SUMMARY | 2025-09-08 14:16 | XMS_ITS | Encounter Summary ---
Author Organization [facility] Address [address] [place] [address] Care Team Providers Care Auto Damage Insurance Appraiser Name Role Phone Physician, Pcp Unknown Primary Care Provider Mary vailable Encounter Details Date Type Department Care Team (Late st Contact Info) Description 10/23/2024 Lab Requisition [facility] - Main Lab [address] [facility] [place] [address] London Perez MD [address] [facility] [address] [place] [address] Pyuria Social History Tobacco Use Types Packs/Day [...] Enterococcus faecalis(A) MIRNA 10/24/2024 10:17 AM EST [facility] ([facility] Comment: SPARSE Edited result: Previously [...] MICROBIOLOGY - GENERAL ORDER MIGUEL Final Result [facility] ([facility]) [facility] [address] [place] [address], [place] [phone] documented in this encounter Visit Diagnoses Diagnosis Pyuria Other nonspecific finding on examination of urine documented in this encounter Care Teams Auto Damage Insurance Appraiser Relationship Specialty Start Date End Date Physician, Pcp Unknown PCP - General 09/10/24 documented as of this encounter
--- OUTSIDE RECORDS SUMMARY | 2025-09-08 14:16 | XMS_ITS | Encounter Summary ---
Author Organization [facility] Address [address] [place] [address] [place] [address] Phone Care Team Providers Care Economics Lecturer Name Role Phone Hayden Wells MD Unavailable [email or web address] Charly [place] MD Unavailable Emily George MD Unavailable Juan Manuel Knox MD Unavailable Raquel Alicea NP Unavailable Rupinder Vicente MD Unavailable [facility] romano MD Unavailable [phone] Luis Lopez MD Unavailable [phone] Rafaela Shultz MD Unavailable [phone] Ppee Adams MD Primary Care Provider + [phone] Major Whitfield MD Primary Care Provid er Encounter Details Date Type Department Care Team (Late st Contact Info) Description 09/06/2017 Ancillary Orders [address] [address] Juan Manuel Knox MD [address] [place] [address], 2[address] [place] [address] [email or web address] Sacroiliitis, not elsewhere classified [...] EDT Office Visit [facility] Rheumatology [address] [place] [address] [place] [address] Emily George MD [address] [place] [address], [address] [place] [address] [email or web address] 02/18/2026 3:00 PM EDT Office Visit [facility] Family Medicine [address] [place] [address] [place] [address] Guera Banks [address] [place] [address], [address] [place] [address] [email or web address] documented as of this encounter Visit Diagnoses Diagnosis Sacroiliitis, not elsewhere classified documented in this encounter Care Teams Economics Lecturer Relationship Specialty Start Date End Date Pepe Adams MD [address] [place] [address] PCP - General Internal Medicine 07/31/17 08/09/25 Major Whitfield MD [address] [place] [address] PCP - General Internal Medicine 08/10/25 Hayden Wells MD [email or web address] Historical LMR Provider 07/25/17 08/16/25 Charly [place] MD [address] [place] [address], [address] [place] [address] Historical LMR Provider 07/25/17 10/15/21 Emily George MD [address] [place] [address], [facility] [address] [place] [address] Historical LMR Provider 07/25/1708/16/25 Juan Manuel Knox MD [address] [place] [address], 2[address] [place] [address] Historical LMR Provider 07/25/17 10/15/21 Raquel Alicea NP [address] [place] [address] Historical LMR Provider 07/25/17 2 Rupinder Vicente MD [address] [place] [address] Historical LMR Provider 07/25/17 10/15/21 Pepe Adams MD [address] [place] [address] Historical LMR Provider 07/25/17 Luis Lopez MD [address] [place] [address] Historical LMR Provider 07/25/17 10/15/21 Rafaela Shultz MD [address] [place] [address] [email or web address] Historical LMR Provider 07/25/17 10/15/21 documented as of this encounter Additional Source Comments The information contained in this document represents components of the legal health record. It is not the complete legal health record.[facility]
--- OUTSIDE RECORDS SUMMARY | 2025-09-08 14:16 | XMS_ITS | Encounter Summary ---
Author Organization [facility] Address [address] [place] [address] Care Team Providers Care Septic Tank Cleaner Name Role Phone Physician, Pcp Unknown Primary Care Provider Mary vailable Encounter Details Date Type Department Care Team (Late st Contact Info) Description 10/17/2024 Lab Requisition [facility] [address] [place] [address] London Perez MD [address] [phone] Personal history of urinary (tract) infections Social [...] Urine No growth 10/18/2024 10:48 AM EST [facility] Urine Urine specimen obtained by clean catch procedure / Unknown 10/17/2024 10/17/2024 1:58 PM EST London Perez MD LAB MICROBIOLOGY - GENERAL ORDER MIGUEL Final Result [facility] [address] [place], [place] [address] [phone] documented in this encounter Visit Diagnoses Diagnosis Personal history of urinary (tract) infections documented in this encounter Care Teams Septic Tank Cleaner Relationship Specialty Start Date End Date Physician, Pcp Unknown PCP - General 09/10/24 documented as of this encounter
--- OUTSIDE RECORDS SUMMARY | 2025-09-08 14:17 | XMS_ITS | Encounter Summary ---
Author Organization [facility] Address [address] [facility] [address] [place] [address] Phone Care Team Providers Care Labor Standards Director Name Role Phone Hayden Wells MD Unavailable [email or web address] Emily George MD Unavailable [phone] MugPepe MD Unavailable [phone] Pepe Adams MD Primary Care Provider + [phone] Major Whitfield MD Primary Care Provid er Encounter Details Date Type Department Care Team (Late st Contact Info) Description 02/08/2023 Procedure Pass [facility] - [address] [place] [address] Social History Tobacco Use Types Packs/Day Years [...] Description 02/17/2026 11:00 AM EDT Office Visit [facility] Rheumatology [address] [place] [address] Emily George MD [address] [place] [address] [address] [place] [address] [email or web address] 02/18/2026 3:00 PM EDT Office Visit [facility] Medicine [address] [place] [address] Guera Banks [address] [place] [address] [email or web address] documented as of this encounter Visit Diagnoses Not on filedocumented in this encounter Care Teams Labor Standards Director Relationship Specialty Start Date End Date Pepe Adams MD [address] [place] [address] PCP - General Internal Medicine 07/31/17 08/09/25 Major Whitfield MD [address] [place] [address] PCP - General Internal Medicine 08/10/25 Hayden Wells MD [email or web address] Historical LMR Provider 07/25/17 08/16/25 Emily George MD [address] [place] [address], [address] [place] [address] Historical LMR Provider 07/25/1708/16/25 Pepe Adams MD [address] [place] [address] Historical LMR Provider 07/25/17 documented as of this encounter Additional Source Comments The information contained in this document represents components of the legal health record. It is not the complete legal health record.[facility]
== END 2025-09-08 10:52 | disposition home or self-care (01) ==
LOC: HO.LAB 10:51
PROVIDERS: PCP Internal Medicine; Visit Provider Clinical Nurse Specialist Psychiatric/Mental Health
DX: R41.89 Other symptoms and signs involving cognitive functions and awareness (principal); F41.9 Anxiety disorder, unspecified; F32.A Depression, unspecified; E55.9 Vitamin D deficiency, unspecified; F42.2 Mixed obsessional thoughts and acts; Z79.899 Other long term (current) drug therapy
CPT/HCPCS: 36415; 82306; 82607; 82746; 83735; 84207; 84425

== ENCOUNTER 2025-09-08 10:51 | Outpatient (AMB) | payer OTHER, SELFPAY ==
--- NOTE | 2025-09-08 11:25 | A.OFFPSYCH_ITS ---
Intake Intake Visit Reasons: f/u consultation Sheet Metal Smith Required: No Allergies No Known Allergies Allergy (Verified 07/01/25 16:10) Medication List - Last Reconciled 09/08/25 by Ira Alcaraz APRN atorvastatin 40 mg PO DAILY cevimeline 1 cap PO BID PRN cyclobenzaprine 5 mg PO BEDTIME PRN estradiol 1 patch topical 2XW estradiol 0.01%(0.1mg/gram) 0.5 grams vaginal Q OTHER DAY etodolac 400 mg PO DAILY PRN fluoxetine 40 mg (2 x 20 mg) PO DAILY lorazepam 1 mg PO DAILY 30 days methenamine hippurate 1 g PO BID omeprazole 20 mg PO BID Synthroid (levothyroxine) 100 mcg PO DAILY NS trazodone 25 mg (1/2 x 50 mg) PO BEDTIME PRN HPI- Psychiatric Chief Complaint: f/u consultation HPI Narrative: Pt seen for follow up re: OCD and ativan taper. Pt stopped ativan alltogether; she did not start the lamictal as prescribed saying she didn't want to add any more meds at this time; she did start low dose trazodone and is taking 40mg of prozac daily. She reports much less tremulous; no sweating , no other side effects reported. Pt reports improvement overall; PHQ9=4 and GAD7=9. She reports some recent word finding difficulties and word substitutions for example calling her daughter Romy Schmitt instead of Keshia. Pt completed MMSE and scored 30/330 although expressed more than once that she could not do what was asked of her0 she did in fact score a perfect 30/30. Past Psychiatric History: outpt medication therapy from PCP; No IPLOC Subjective Subjective Medication Compliance: Yes Side effects from medications: No Review of Systems Medical Review of Systems: unchanged Mental Status Exam Mental Status Exam Patient Appearance: Well Grooomed, Fatigued and Appropriate Patient Orientation: Person, Place, Time and Situation Level of Consciousness: Awake, Appropriate and Alert Patient Behavior: Appropriate, Talkative, Restless, Anxious and Good Eye Contact Mood Description: Anxious Affect Description: Anxious Patient Cognition Impaired: No Ability to Follow Directions: Good Speech Pattern: Clear and Appropriate Memory Description: Intact Hallucinations: None Delusions: Not Present Thought Process: Intact and Rumination Thought Content: positive for Intact, positive for Obsessional Thoughts (worries) and positive for Preoccupation Depressive Symptoms: Difficulty Sleeping and Difficulty Concentrating Judgement: Good Assessment and Plan Assessment & Plan (1) OCD (obsessive compulsive disorder): Status: Acute Qualifiers: Obsessive-compulsive disorder type: mixed obsessional thoughts and acts Qualified Code(s): F42.2 - Mixed obsessional thoughts and acts Code(s): F42.9 - Obsessive-compulsive disorder, unspecified (2) Insomnia disorder, with non-sleep disorder mental comorbidity: Status: Acute Code(s): G47.00 - Insomnia, unspecified Plan stop ativan rx continue prozac 40mg daily continue trazodone 25mg hs prn insomnia labs ordered to rule out medical etiology to poor concentration retrun in 8 weeks and will refer back to PCP at that time if stable. Medications: Discontinued lorazepam Discontinued Reason: Doctor's Order 1 mg PO DAILY 30 days 30 tabs 0RF anxiety Orders: Orders Magnesium Today F32.A - Depression, unspecified, F41.9 - Anxiety disorder, unspecified, R41.89 - Other symptoms and signs involving cognitive functions and awareness Vitamin B12 and Folate Today F32.A - Depression, unspecified, F41.9 - Anxiety disorder, unspecified, R41.89 - Other symptoms and signs involving cognitive functions and awareness Vitamin B1 Today R41.89 - Other symptoms and signs involving cognitive functions and awareness Vitamin D 25-OH Total Today E55.9 - Vitamin D deficiency, unspecified Vitamin B6 Today F32.A - Depression, unspecified, F41.9 - Anxiety disorder, unspecified Counseling and coordination of Care Pt. Self Management counseling: Maintenance-social rhythm, Mod caffeine/ETOH intake, Nutrition education and improvement, Sleep hygiene and Problem solving Medication management counseling: Effectiveness, Side effects, Dosing range, Duration and Drug interaction Diagnosis and Prognosis Counseling: Accuracy of diagnosis, Prognosis over time, Impact of diagnosis on life functions, Impact of family relationship, Problematic behaviors secondary to diagnosis and Adequacy of current interventions Details: I spent 40 minutes reviewing the record, seeing the patient and documenting in the medical record. Counseling provided to the patient/caregiver as outlined below. Addressed patient/caregiver concerns regarding current medication regime including effective adherence. Addressed patient/caregiver concerns regarding diagnosis and prognosis including accuracy of diagnosis, prognosis over time, impact of diagnosis. Addressed patient/caregiver concerns regarding impact of recent stressors. [facility] Medical History (Updated 09/08/25 @ 11:37 by Ira Alcaraz APRN) Endometriosis Menopause Hypertension Elevated blood pressure reading Hypothyroidism GERD (gastroesophageal reflux disease) Recurrent UTI Hyperlipidemia Anxiety and depression OCD (obsessive compulsive disorder) Establishing care with new doctor, encounter for Family History Father Diabetes Cancer Multiple myeloma Mother BP (high blood pressure) Ovarian cancer Social History Housing: House Alcohol intake: current Alcohol intake frequency: does not drink Patient Tobacco Use Status: Current everyday Tobacco user Cigarette Packs Per Day: 1 Cigarettes Per Day: 20 service: No Current occupational status: unemployed Cognitive needs: No Hearing needs: No Vision needs: Yes (rx glasses) Social History: lives with of 39 yrs; has 2 adult daughter and 4 grandchildren who are young adults. 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
== END 2025-09-08 15:10 | disposition home or self-care (01) ==
LOC: HO.HOP 10:51
PROVIDERS: PCP Internal Medicine; Visit Provider Clinical Nurse Specialist Psychiatric/Mental Health
DX: F42.2 Mixed obsessional thoughts and acts (principal); G47.00 Insomnia, unspecified
CPT/HCPCS: 99214